=== PATIENT | female | born 1960 | race Caucasian/White ===

== ENCOUNTER 2019-05-03 05:07 | Emergency (ER) | payer OTHER ==
[2019-05-03] MEDS ORDERED: NORMAL SALINE 1000 ML 1,000 ML IV ONE (05:34)
[2019-05-03] MEDS ORDERED: ONDANSETRON HCL INJ/PF 4 MG/2 ML SDV IV ONE (06:06)
[2019-05-03 06:25] LABS: HEMATOCRIT 41.9 % (36.0-47.0); HEMOGLOBIN 14.6 g/dL (12.0-15.5); MEAN CORPUSCULAR HEMOGLOBIN 31.6 pg (27.0-33.4); MEAN CORPUSCULAR HGB CONC 34.9 g/dL (32.0-36.0); MEAN CORPUSCULAR VOLUME 91 fl (80-97); PLATELET COUNT 460 10^3/uL (150-450); RED BLOOD COUNT 4.62 10^6/uL (3.72-5.28); RED CELL DISTRIBUTION WIDTH 13.4 % (11.5-14.0); WHITE BLOOD COUNT 5.2 10^3/uL (4.0-10.5)
[2019-05-03 06:45] LABS: ALBUMIN 2.4 g/dL (3.5-5.0); ALKALINE PHOSPHATASE 92 U/L (38-126); ANION GAP 10 (5-19); ASPARTATE AMINO TRANSFERASE 21 U/L (14-36); BILIRUBIN,DIRECT 0.1 mg/dL (0.0-0.4); BILIRUBIN,TOTAL 1.3 mg/dL (0.2-1.3); BLOOD UREA NITROGEN 18 mg/dL (7-20); CALCIUM 7.9 mg/dL (8.4-10.2); CARBON DIOXIDE 24 mmol/L (22-30); CHLORIDE 90 mmol/L (98-107); GLUCOSE 95 mg/dL (75-110); TOTAL PROTEIN 5.1 g/dL (6.3-8.2)
--- NOTE | 2019-05-03 06:51 | ER Document Report ---
ED General - General Chief Complaint: Vomiting/Diarrhea Stated Complaint: ABDOMINAL PAIN,NAUSEA,VOMITING Time Seen by Provider: 05/03/19 06:05 Primary Care Provider: ELIZABETH JEFFERSON [NO LOCAL MD] - Follow up as needed DEVENDRA HEARN MD [ACTIVE STAFF] - Follow up as needed Mode of Arrival: Ambulatory Information source: Patient TRAVEL OUTSIDE OF THE [place] IN LAST 30 DAYS: No - HPI Onset: Other - over the last 7 weeks Onset/Duration: Gradual Quality of pain: Achy, Sharp Severity: Severe Pain Level: 5 Associated symptoms: Diarrhea, Nausea, Vomiting Exacerbated by: Coughing, Other - palpation of abdomen, laying flat Relieved by: Remaining still Similar symptoms previously: No Recently seen / treated by doctor: No Notes: 58 year old female with no known PMH here for 7 weeks of nausea, vomiting, and abdominal pains. The patient says she started off with diarrhea and chills but these symptoms past and then she felt bloated. The patient says she gave herself an enema over a week ago and since then she has noticed a painful lump in her left lower quadrant. The patient says she has not had a bowel movement in 2 days. Palpation of her stomach and laying flat make the pain the worst. The patient says also has noticed swelling in her feet and lower legs and significant GERD symptoms. - Related Data Allergies/Adverse Reactions: No Known Allergies Allergy (Verified 05/03/19 05:34) Past Medical History - General Information source: Patient - Social History Smoking Status: Never Smoker Frequency of alcohol use: None Drug Abuse: None Lives with: Spouse/Significant other Family History: Reviewed & Not Pertinent Patient has suicidal ideation: No Patient has homicidal ideation: No - Past Medical History Cardiac Medical History: Reports: None Pulmonary Medical History: Reports: None EENT Medical History: Reports: None Neurological Medical History: Reports: None Endocrine Medical History: Reports: None Renal/ Medical History: Reports: None Malignancy Medical History: Reports: None GI Medical History: Reports: None Musculoskeletal Medical History: Reports None Skin Medical History: Reports None Psychiatric Medical History: Reports: None Past Surgical History: Reports: Hx Tubal Ligation Review of Systems - Review of Systems Constitutional: Chills, Weakness EENT: No symptoms reported Cardiovascular: No symptoms reported Respiratory: No symptoms reported Gastrointestinal: Abdomen distended, Abdominal pain, Diarrhea, Nausea, Vomiting, Constipation Genitourinary: No symptoms reported Female Genitourinary: No symptoms reported Musculoskeletal: No symptoms reported Skin: No symptoms reported Hematologic/Lymphatic: No symptoms reported Neurological/Psychological: No symptoms reported -: Yes All other systems reviewed and negative Physical Exam - Vital signs Vitals: Temp Pulse Resp BP Pulse Ox 97.2 F 124 H 18 118/89 H 96 05/03/19 05:28 05/03/19 05:28 05/03/19 05:28 05/03/19 05:28 05/03/19 05:28 - Notes Notes: GENERAL: Uncomfortable in appearance, well-nourished HEAD: Atraumatic, normocephalic. EYES: Pupils equal round and reactive to light, extraocular movements intact, sclera anicteric, conjunctiva are normal. ENT: Nares patent, oropharynx clear without exudates. Moist mucous membranes. NECK: Normal range of motion, supple without lymphadenopathy or JVD. LUNGS: Breath sounds clear to auscultation bilaterally and equal. No wheezes rales or rhonchi. HEART: Regular rate and rhythm without murmurs, rubs or gallops. ABDOMEN: Soft, moderate tenderness throughout her abdomen, more severe tenderness in LLQ where a palpable mass is noted (about size of baseball), normoactive bowel sounds. Mild guarding. EXTREMITIES: Pitting edema of feet and ankle and lower legs to mid shins. Normal range of motion, no pitting or edema. No clubbing or cyanosis. NEUROLOGICAL: Cranial nerves II through XII grossly intact. Normal speech, normal gait. PSYCH: Normal mood, normal affect. SKIN: Warm, Dry, normal turgor, no rashes or lesions noted. Course - Re-evaluation Re-evalutation: 05/03/19 11:17 The patient is very constipated and the concern is there may be an underlying malignancy causing the constipation. Surgical Consult placed and plan is for patient to follow up as an outpatient for colonoscopy. Patient was given an Enema in the ER with mild relief. Patient was then given Zofran and Magnesium Citrate and then a repeat enema. Patient's electorlytes are slightly off likely due to her recent GI issues. Patient's Albumin is low which is concerning for malignancy. - Vital Signs Vital signs: Temp Pulse Resp BP Pulse Ox 97.2 F 124 H 22 H 112/90 H 99 02/17/20 05:28 05/03/19 05:28 05/03/19 11:00 05/03/19 10:34 05/03/19 11:00 - Laboratory Result Diagrams: 05/03/19 06:03 05/03/19 06:03 Laboratory results interpreted by me: 05/03/19 05/03/19 05/03/19 06:03 06:03 06:03 Plt Count 460 H Band Neutrophils % 2 L Monocytes % (Manual) 21 H Sodium 124.4 L Chloride 90 L Creatinine 0.44 L Calcium 7.9 L NT-Pro-B Natriuret Pep 129 H Total Protein 5.1 L Albumin 2.4 L - Diagnostic Test Radiology reviewed: Image reviewed, Reports reviewed Discharge - Discharge Clinical Impression: Screening for colon cancer Constipation Qualifiers: Constipation type: other constipation type Qualified Code(s): K59.09 - Other constipation Disposition: HOME, SELF-CARE Instructions: Constipation ([facility]), Hernia ([facility]) Additional Instructions: Use over the counter stool softeners such as Miralax, Senna, Colace, and Magnesium Citrate. Drink plenty of fluids in the days to come. Use the prescribed Zofran for nausea. Follow up in the [facility] with Dr. Jackie cee or one of his colleagues as you need to have a colonoscopy to look for a cause of your colonic obstruction. You have an abdominal wall hernia which you can speak with the Surgeon with as well. Prescriptions: Ondansetron [Zofran Odt 4 mg Tablet] 1 tab PO Q8H PRN #15 tab.rapdis PRN Reason: For Nausea/Vomiting Referrals: ELIZABETH JEFFERSON [NO LOCAL MD] - Follow up as needed DEVENDRA HEARN MD [ACTIVE STAFF] - Follow up as needed
[2019-05-03] MEDS ORDERED: MORPHINE SULFATE 10 MG/ML INJ IV ONE (06:55)
[2019-05-03 07:06] LABS: ABSOLUTE LYMPHOCYTES# (MANUAL) 0.7 10^3/uL (0.5-4.7); ABSOLUTE MONOCYTES # (MANUAL) 1.1 10^3/uL (0.1-1.4); BAND NEUTROPHILS % (MANUAL) 2 % (3-5); BASOPHILS % (MANUAL) 0 % (0-2); EOSINOPHILS % (MANUAL) 1 % (0-6); LYMPHOCYTES % (MANUAL) 13 % (13-45); MONOCYTES % (MANUAL) 21 % (3-13); SEGMENTED NEUTROPHILS % (MAN) 63 % (42-78); TOTAL CELLS COUNTED 100
[2019-05-03 07:08] LABS: TOXIC GRANULATION SLIGHT
[2019-05-03 07:09] LABS: PLATELET CLUMPS PRESENT; PLATELET COMMENT ADEQUATE; RBC MORPHOLOGY COMMENT NORMO-CYTIC/CHROMIC
--- NOTE | 2019-05-03 07:56 | RADIOLOGY REPORT (SQ) ---
CT abdomen and pelvis with contrast on 05/03/2019 at 7:10 AM CLINICAL INDICATION: Lower abdominal and periumbilical abdominal pain, mass TECHNIQUE: Multiple axial images are obtained throughout the abdomen and pelvis following the administration of IV contrast, 94 mL of Omnipaque 350 contrast was administered intravenously without complication. This exam was performed according to our departmental dose-optimization program, which includes automated exposure control, adjustment of the mA and/or kV according to patient size and/or use of iterative reconstruction technique. Total DLP is 1685.51 mGy*cm. COMPARISON: None FINDINGS: Abdomen: There is mild elevation of the right hemidiaphragm. There is minimal adjacent right basilar atelectasis and/or scarring. There is fatty infiltration of the liver. Multiple hepatic cysts are noted. Gallstone is noted within a distended gallbladder. There are multiple apparent duodenal diverticulum along the third portion of the duodenum. Solid abdominal organs are otherwise unremarkable. There is no abdominal adenopathy. Anasarca is noted in the subcutaneous tissues. There is no free fluid or free air within the abdomen. There is increased stool and gaseous distention of the entire colon down to the level of the sigmoid colon. There is narrowing of the sigmoid colon at the transition without definite mass. There is no twisting to suggest volvulus. This may be related to stricture or malignancy. Would recommend follow-up colonoscopy to better evaluate the sigmoid colon. The abdominal portion of the GI tract is otherwise unremarkable. Pelvis: There are couple of adjacent infraumbilical anterior abdominal wall hernias, the one to the right of the midline is smaller and contains some fat and small amount of fluid, the one to the left of the midline is more moderate in size and contains more fluid and fat. There is no bowel within either of these hernias. Small amount of free fluid is noted in the pelvis. Pelvic organs appear unremarkable by CT. There is no pelvic adenopathy. Pelvic portion of the GI tract including the appendix is otherwise unremarkable. Degenerative changes are noted in the spine. IMPRESSION: 1. Constipation with stool and gaseous distention of the entire colon down to the level of the sigmoid colon where there is narrowing of the sigmoid colon that may be related to stricture or malignancy. Recommend follow-up colonoscopy as this appears to be producing a partial colonic obstruction. 2. Cholelithiasis. 3. Infraumbilical anterior abdominal wall hernias containing fat and fluid. 4. Fatty infiltration of the liver.
[2019-05-03] MEDS ORDERED: MINERAL OIL 30 ML UDCUP PR ONE (08:06)
--- NOTE | 2019-05-03 09:14 | PDOC CONSULTATION ---
Consultation Consult Date: 05/03/19 Provider Consulted: DEVENDRA HEARN Consult reason:: Abdominal pain nausea vomiting constipation History of Present Illness History of Present Illness: JIM VICK is a 58 year old female Presents emergency department via ground rescue complaining of abdominal pain, nausea vomiting and constipation. According the patient she is never had a colonoscopy, denies history of abdominal trauma, or previous gastrointestinal problems. For several weeks she states she has been having constipation, unrelated to dietary change. She took enemas several days ago, with relief, but then the constipation, abdominal pain returned. He is seen in emergency department planing of persisting abdominal pain. CT scan of the abdomen and pelvis without oral contrast demonstrates again stool throughout the entire colon, a suggestion of a possible stricture of the rectosigmoid junction. Surgery was consulted. Patient had not undergone a rectal examination. No personal or family history of colorectal malignancy. Past Medical History Past Medical History: Obesity, constipation Cardiac Medical History: Reports: None Pulmonary Medical History: Reports: None EENT Medical History: Reports: None Neurological Medical History: Reports: None Endocrine Medical History: Reports: None Renal/ Medical History: Reports: None Malignancy Medical History: Reports: None GI Medical History: Reports: None Musculoskeltal Medical History: Reports: None Skin Medical History: Reports: None Psychiatric Medical History: Reports: None Past Surgical History Past Surgical History: Bilateral tubal ligation Past Surgical History: Reports: Tubal Ligation Social History Information Source: Patient Lives with: Spouse/Significant other Smoking Status: Never Smoker Electronic Cigarette use?: No Frequency of Alcohol Use: None Hx Recreational Drug Use: No Hx Prescription Drug Abuse: No Family History Family History: Reviewed & Not Pertinent, COPD Parental Family History Reviewed: Yes Children Family History Reviewed: Yes Sibling(s) Family History Reviewed.: Yes Medication/Allergy Allergies/Adverse Reactions: No Known Allergies Allergy (Verified 05/03/19 05:34) Review of Systems Constitutional: PRESENT: as per HPI Eyes: ABSENT: visual disturbances Ears: ABSENT: hearing changes Cardiovascular: ABSENT: chest pain, dyspnea on exertion, edema, orthropnea, palpitations Respiratory: ABSENT: cough, hemoptysis Gastrointestinal: PRESENT: other - She does have a abdominal wall hernia, reducible patient is never had a colonoscopy; she does not have a medical doctor. Denies any hematemesis or melena. Musculoskeletal: ABSENT: joint swelling Integumentary: ABSENT: rash, wounds Psychiatric: ABSENT: anxiety, depression, homidical ideation, suicidal ideation Endocrine: ABSENT: cold intolerance, heat intolerance, polydipsia, polyuria Physical Exam Vital Signs: Temp Pulse Resp BP Pulse Ox 97.2 F 124 H 16 121/93 H 100 05/03/19 05:28 05/03/19 05:28 05/03/19 07:01 05/03/19 07:01 05/03/19 07:01 Intake & Output 05/02/19 05/03/19 05/04/19 06:59 06:59 06:59 Intake Total 1000 Balance 1000 Weight 81.8 kg General appearance: PRESENT: mild distress Head exam: PRESENT: normocephalic Eye exam: PRESENT: EOMI Mouth exam: PRESENT: dry mucosa Neck exam: PRESENT: full ROM Respiratory exam: PRESENT: clear to auscultation young Cardiovascular exam: PRESENT: RRR Pulses: PRESENT: normal carotid pulses, normal radial pulses, normal femoral p ulses Breast: PRESENT: Other - Referred GI/Abdominal exam: PRESENT: other - Infraumbilical midline incision; reducible umbilical and infraumbilical hernia. The abdomen is diffusely tender but without rigidity. Mild guarding. No groin hernias. Rectal exam: PRESENT: other - Patient rolled in left lateral cubitus position. Perianal tissue remarkable for external hemorrhoid, collapsed. Sphincter tone is excellent. Gloved index finger reveals no immediately palpable masses other than multiple large stool balls Extremities exam: PRESENT: full ROM Musculoskeletal exam: PRESENT: full ROM Neurological exam: PRESENT: oriented to person, oriented to place, oriented to time, oriented to situation Psychiatric exam: PRESENT: appropriate affect Skin exam: PRESENT: intact Results Laboratory Results: 05/03/19 06:03 05/03/19 06:03 05/03/19 05/03/19 06:03 06:03 WBC 5.2 RBC 4.62 Hgb 14.6 Hct 41.9 MCV 91 MCH 31.6 MCHC 34.9 RDW 13.4 Plt Count 460 H Seg Neutrophils % Not Reportable Sodium 124.4 L Potassium 4.0 Chloride 90 L Carbon Dioxide 24 Anion Gap 10 BUN 18 Creatinine 0.44 L Est GFR ( Amer) > 60 Glucose 95 Calcium 7.9 L Magnesium 2.1 Total Bilirubin 1.3 AST 21 Alkaline Phosphatase 92 Total Protein 5.1 L Albumin 2.4 L Lipase 29.3 05/03/19 06:03 NT-Pro-B Natriuret Pep 129 H Impressions: Abdomen/Pelvis CT 05/03/19 06:34 IMPRESSION: 1. Constipation with stool and gaseous distention of the entire colon down to the level of the sigmoid colon where there is narrowing of the sigmoid colon that may be related to stricture or malignancy. Recommend follow-up colonoscopy as this appears to be producing a partial colonic obstruction. 2. Cholelithiasis. 3. Infraumbilical anterior abdominal wall hernias containing fat and fluid. 4. Fatty infiltration of the liver. Assessment & Plan - Diagnosis (1) Constipation Is this a current diagnosis for this admission?: Yes Plan: ImPression: Chronic, involving massive amount of stool throughout the entire colon; CT scan limited due to absence of oral contrast; cannot rule out recto sigmoid colon stricture, tumor. Patient has not had a colonoscopy. No evidence of acute abdomen. Recommendations: 1. Patient does not need emergent operation. 2. I suggested IV hydration, and enemas in the emergency department; I attempted to digitally disimpact patient but she did not tolerate this well at all. I do not believe she has a complete rectosigmoid colon obstruction however she does need a colonoscopy once she is cleared out and managed from a constipation standpoint. I have spoken with the emergency department physician, suggested she follow-up with [facility] to schedule colonoscopy. 3. Please reconsult surgery if clinically indicated. (2) Screening for colon cancer Is this a current diagnosis for this admission?: Yes (3) Abdominal wall hernia Is this a current diagnosis for this admission?: Yes Plan: Infraumbilical related to previous bilateral tubal ligation, reducible. Not source of obstruction, incarceration. (4) Hepatic cyst Is this a current diagnosis for this admission?: Yes - Time Time Spent: 30 to 50 Minutes Smoking Cessation Education: 3 to 10 minutes Medications reviewed and adjusted accordingly: Yes Anticipated discharge: Home
[2019-05-03] MEDS ORDERED: MAGNESIUM CITRATE 296 ML BOTTLE PO ONE (10:13)
[2019-05-03] MEDS ORDERED: NA PHOS,M-B/NA PHOS,DI-BA (ADULT) 133 ML ENEMA PR ONE (10:13)
[2019-05-03] MEDS ORDERED: METOCLOPRAMIDE HCL INJ/PF 10 MG/2 ML SDV IV ONE (12:35)
[2019-05-03 13:46] VITALS: BP 106/78
== END 2019-05-03 13:47 | disposition home or self-care (01) ==
LOC: ER 05:07
DX: K59.00 Constipation, unspecified (principal); R11.2 Nausea with vomiting, unspecified; R19.7 Diarrhea, unspecified; R19.04 Left lower quadrant abdominal swelling, mass and lump; R68.83 Chills (without fever); R53.1 Weakness
CPT/HCPCS: 99284; 96361; 96374; 96375; 36415; 83690; 83735; 85025; 80053; 83880; 74177; J3490 ×3; J2765; J2270; J2405; J7030

== ENCOUNTER 2019-05-05 12:56 | Inpatient (IN) | payer OTHER ==
[2019-05-05] MEDS ORDERED: PROMETHAZINE HCL INJ 25 MG/1 ML VIAL IM ONE (14:19)
[2019-05-05] MEDS ORDERED: DICYCLOMINE HCL INJ 20 MG/2 ML AMPULE IM ONE (14:19)
--- NOTE | 2019-05-05 14:20 | ER Document Report ---
ED Medical Screen (RME) - General Chief Complaint: Abdominal Pain Stated Complaint: STOMACH PAIN/VOMITING Time Seen by Provider: 05/05/19 14:09 Notes: 58-year-old female presents with continued abdominal pain with nausea/vomiting. Patient states she was seen on Friday and diagnosed with constipation however states that has gotten worse the last couple days. Patient states she is no longer passing flatus. Abdomen soft tenderness diffusely. Patient denies any abdominal surgeries except having her tubes tied. I have greeted and performed a rapid initial assessment of this patient. A comprehensive ED assessment and evaluation of the patient, analysis of test results and completion of the medical decision making process with be conducted by additional ED providers. TRAVEL OUTSIDE OF THE [place] IN LAST 30 DAYS: No - Related Data Allergies/Adverse Reactions: No Known Allergies Allergy (Verified 05/05/19 14:05) Past Medical History - Social History Frequency of alcohol use: None Drug Abuse: None Past Surgical History: Reports: Hx Tubal Ligation Physical Exam - Vital signs Vitals: Temp Pulse Resp BP Pulse Ox 97.4 F 121 H 20 113/89 H 94 05/05/19 13:34 05/05/19 13:34 05/05/19 13:34 05/05/19 13:34 05/05/19 13:34 Course - Vital Signs Vital signs: Temp Pulse Resp BP Pulse Ox 97.4 F 121 H 20 113/89 H 94 05/05/19 13:34 05/05/19 13:34 05/05/19 13:34 05/05/19 13:34 05/05/19 13:34
[2019-05-05 15:51] LABS: APPEARANCE,URINE SLIGHTLY-CLOUDY; BILIRUBIN,URINE MODERATE (NEGATIVE); COLOR,URINE AMBER; GLUCOSE, URINE NEGATIVE (NEGATIVE); KETONES,URINE 20 mg/dL (NEGATIVE); PROTEIN,URINE 30 mg/dL (NEGATIVE); URINE SPECIFIC GRAVITY 1.029
[2019-05-05 15:51] LABS: ABSOLUTE LYMPHOCYTES (AUTO) 1.3 10^3/uL (0.5-4.7); ABSOLUTE MONOCYTES (AUTO) 1.1 10^3/uL (0.1-1.4); BASOPHILS % (AUTO) 0.4 % (0-2); EOSINOPHILS % (AUTO) 0.1 % (0-6); HEMATOCRIT 43.2 % (36.0-47.0); HEMOGLOBIN 14.9 g/dL (12.0-15.5); LYMPHOCYTES % (AUTO) 24.3 % (13-45); MEAN CORPUSCULAR HEMOGLOBIN 31.5 pg (27.0-33.4); MEAN CORPUSCULAR HGB CONC 34.5 g/dL (32.0-36.0); MEAN CORPUSCULAR VOLUME 91 fl (80-97); MONOCYTES % (AUTO) 19.8 % (3-13); PLATELET COUNT 534 10^3/uL (150-450); RED BLOOD COUNT 4.73 10^6/uL (3.72-5.28); RED CELL DISTRIBUTION WIDTH 13.4 % (11.5-14.0); SEGMENTED NEUTROPHILS % (AUTO) 55.4 % (42-78); TOTAL CELLS COUNTED % (AUTO) 100 %; WHITE BLOOD COUNT 5.4 10^3/uL (4.0-10.5)
[2019-05-05 16:14] LABS: ALBUMIN 2.4 g/dL (3.5-5.0); ALKALINE PHOSPHATASE 93 U/L (38-126); ANION GAP 15 (5-19); ASPARTATE AMINO TRANSFERASE 21 U/L (14-36); BILIRUBIN,DIRECT 0.5 mg/dL (0.0-0.4); BILIRUBIN,TOTAL 1.3 mg/dL (0.2-1.3); BLOOD UREA NITROGEN 24 mg/dL (7-20); CALCIUM 7.8 mg/dL (8.4-10.2); CARBON DIOXIDE 23 mmol/L (22-30); CHLORIDE 86 mmol/L (98-107); GLUCOSE 105 mg/dL (75-110); POTASSIUM 4.8 mmol/L (3.6-5.0); TOTAL PROTEIN 5.1 g/dL (6.3-8.2)
[2019-05-05] MEDS ORDERED: NORMAL SALINE 1000 ML 1,000 ML IV ONE (17:06)
--- NOTE | 2019-05-05 17:06 | ER Document Report ---
ED GI/ - General Chief Complaint: Abdominal Pain Stated Complaint: STOMACH PAIN/VOMITING Time Seen by Provider: 05/05/19 16:45 Mode of Arrival: Ambulatory Information source: Patient Notes: Patient presents complaining of abdominal bloating pain nausea and vomiting for the past 2 weeks. Patient states she was seen here 2 days ago and was told she was constipated. Patient states she was given an enema and did have a small bowel movement while in the ER and was discharged home with MiraLAX and Zofran. Patient states she has not had any additional bowel movement despite taking MiraLAX as well as an [id number] fleets enema. Patient reports persistent vomiting despite use of Zofran. Patient denies any fever. Patient does report decrease in appetite over the past several weeks. Patient also complains of lower extremity swelling for the past week. Patient states she has had some exertional shortness of breath as well. Patient states she has not been passing any gas although she states that her stomach will frequently make loud noises. TRAVEL OUTSIDE OF THE [place] IN LAST 30 DAYS: No - HPI Patient complains to provider of: Abdominal pain, Vomiting Onset: Other - 2 weeks Timing/Duration: Worse Quality of pain: Cramping Pain Level: 4 Location: Other - Generalized abdomen Associated symptoms: Constipation, Loss of appetite, Nausea, Vomiting. denies: Chest pain, Diarrhea, Dysuria, Fever, Urinary hesitancy, Urinary frequency Exacerbated by: Denies, Supine, Movement Relieved by: Denies Similar symptoms previously: No Recently seen / treated by doctor: Yes - Related Data Allergies/Adverse Reactions: No Known Allergies Allergy (Verified 05/05/19 14:05) Past Medical History - General Information source: Patient - Social History Smoking Status: Never Smoker Frequency of alcohol use: None Drug Abuse: None Family History: Reviewed & Not Pertinent Patient has suicidal ideation: No Patient has homicidal ideation: No - Medical History Medical History: Negative Past Surgical History: Reports: Hx Tubal Ligation Review of Systems - Review of Systems Constitutional: No symptoms reported. denies: Fever, Recent illness EENT: No symptoms reported Cardiovascular: Dyspnea. denies: Chest pain Respiratory: Short of breath - Exertion. denies: Cough Gastrointestinal: Abdominal pain, Nausea, Vomiting, Constipation. denies: Diarrhea Genitourinary: No symptoms reported. denies: Dysuria Female Genitourinary: No symptoms reported Musculoskeletal: Leg swelling. denies: Back pain Skin: No symptoms reported Hematologic/Lymphatic: No symptoms reported Neurological/Psychological: No symptoms reported Physical Exam - Vital signs Vitals: Temp Pulse Resp BP Pulse Ox 97.4 F 121 H 20 113/89 H 94 05/05/19 13:34 05/05/19 13:34 05/05/19 13:34 05/05/19 13:34 05/05/19 13:34 - General General appearance: Alert In distress: Mild - HEENT Head: Normocephalic, Atraumatic Eyes: Normal Conjunctiva: Normal Nasal: Normal Mouth/Lips: Normal Mucous membranes: Normal Neck: Normal, Supple - Respiratory Respiratory status: No respiratory distress Chest status: Nontender Breath sounds: Normal Chest palpation: Normal - Cardiovascular Rhythm: Tachycardia Heart sounds: S1 appreciated, S2 appreciated - Abdominal Inspection: Obese Distension: Distended, Tympanitic - upper abd Bowel sounds: Hypoactive - lower abd Tenderness: Tender - generalized, Guarding - Back Back: Normal, Nontender. No: CVA tenderness - Extremities General upper extremity: Normal inspection, Normal strength General lower extremity: Edema - bilat 3+ - Neurological Neuro grossly intact: Yes Cognition: Normal [place] Coma Scale Eye Opening: Spontaneous [place] Coma Scale Verbal: Oriented [place] Coma Scale Motor: Obeys Commands [place] Coma Scale Total: 15 - Psychological Associated symptoms: Normal affect, Normal mood - Skin Skin Temperature: Warm Skin Moisture: Dry Skin Color: Normal Course - Re-evaluation Re-evalutation: 05/05/19 18:[address] Richardson about concerns about possible stricture and bowel obstruction given patient's persistent nominal distention symptoms with emesis and no BM despite use of fwqd-[id number]-zghgqce MiraLAX and fleets enemas. Dr. Richardson does recommend bringing patient into the hospital under medicine services given patient's hyponatremia. He will be happy to consult on patient and see her shortly. 05/05/19 18:13 Dr Washington consulted and states that Dr Valladares will evaluate pt - Vital Signs Vital signs: Temp Pulse Resp BP Pulse Ox 97.0 F 109 H 20 114/86 H 100 05/05/19 17:52 05/05/19 18:13 05/05/19 19:01 05/05/19 19:01 05/05/19 19:01 - Laboratory Result Diagrams: 05/05/19 14:40 05/05/19 14:40 Laboratory results interpreted by me: 05/05/19 05/05/19 05/05/19 14:40 14:40 14:40 Plt Count 534 H Routt % (Auto) 19.8 H Sodium 123.7 L Chloride 86 L BUN 24 H Calcium 7.8 L Direct Bilirubin 0.5 H NT-Pro-B Natriuret Pep 183 H Total Protein 5.1 L Albumin 2.4 L Lipase < 10.0 L Urine Protein Urine Ketones Urine Bilirubin Urine Urobilinogen Leukocyte Esterase Rfl 05/05/19 15:25 Plt Count [place] % (Auto) Sodium Chloride BUN Calcium Direct Bilirubin NT-Pro-B Natriuret Pep Total Protein Albumin Lipase Urine Protein 30 H Urine Ketones 20 H Urine Bilirubin MODERATE H Urine Urobilinogen 4.0 H Leukocyte Esterase Rfl SMALL H 05/05/19 20:37 Labs- Entire Visit 05/05/19 05/05/19 05/05/19 14:40 14:40 14:40 WBC 5.4 RBC 4.73 Hgb 14.9 Hct 43.2 MCV 91 MCH 31.5 MCHC 34.5 RDW 13.4 Plt Count 534 H Lymph % (Auto) 24.3 [place] % (Auto) 19.8 H Eos % (Auto) 0.1 Baso % (Auto) 0.4 Absolute Neuts (auto) 3.0 Absolute Lymphs (auto) 1.3 Absolute Monos (auto) 1.1 Absolute Eos (auto) 0.0 Absolute Basos (auto) 0.0 Seg Neutrophils % 55.4 Sodium 123.7 L Potassium 4.8 Chloride 86 L Carbon Dioxide 23 Anion Gap 15 BUN 24 H Creatinine 0.63 Est GFR ( Amer) > 60 Est GFR (MDRD) Non-Af > 60 Glucose 105 Calcium 7.8 L Total Bilirubin 1.3 Direct Bilirubin 0.5 H Neonat Total Bilirubin Not Reportable Neonat Direct Bilirubin Not Reportable Neonat Indirect Bili Not Reportable AST 21 ALT 14 Alkaline Phosphatase 93 NT-Pro-B Natriuret Pep 183 H Total Protein 5.1 L Albumin 2.4 L Lipase < 10.0 L Urine Color Urine Appearance Urine pH Ur Specific [place] Urine Protein Urine Glucose (UA) Urine Ketones Urine Blood Urine Nitrite (Reflex) Urine Bilirubin Urine Urobilinogen Leukocyte Esterase Rfl Urine RBC (Auto) U Hyaline Cast (Auto) Urine Bacteria (Auto) Urine WBC (Reflex) Squamous Epi Cells Auto Urine Mucus (Auto) Urine Ascorbic Acid 05/05/19 15:25 WBC RBC Hgb Hct MCV MCH MCHC RDW Plt Count Lymph % (Auto) [place] % (Auto) Eos % (Auto) Baso % (Auto) Absolute Neuts (auto) Absolute Lymphs (auto) Absolute Monos (auto) Absolute Eos (auto) Absolute Basos (auto) Seg Neutrophils % Sodium Potassium Chloride Carbon Dioxide Anion Gap BUN Creatinine Est GFR ( Amer) Est GFR (MDRD) Non-Af Glucose Calcium Total Bilirubin Direct Bilirubin Neonat Total Bilirubin Neonat Direct Bilirubin Neonat Indirect Bili AST ALT Alkaline Phosphatase NT-Pro-B Natriuret Pep Total Protein Albumin Lipase Urine Color MARIA LUZ Urine Appearance SLIGHTLY-CLOUDY Urine pH 5.0 Ur Specific [place] 1.029 Urine Protein 30 H Urine Glucose (UA) NEGATIVE Urine Ketones 20 H Urine Blood NEGATIVE Urine Nitrite (Reflex) NEGATIVE Urine Bilirubin MODERATE H Urine Urobilinogen 4.0 H Leukocyte Esterase Rfl SMALL H Urine RBC (Auto) 3 U Hyaline Cast (Auto) 24 Urine Bacteria (Auto) TRACE Urine WBC (Reflex) 15 Squamous Epi Cells Auto 3 Urine Mucus (Auto) MANY Urine Ascorbic Acid NEGATIVE - Diagnostic Test Radiology reviewed: Reports reviewed - reviewed report from patient's CT scan performed 2 days ago Discharge - Discharge Clinical Impression: Anasarca, Hyponatremia Abdominal pain Qualifiers: Abdominal location: generalized Qualified Code(s): R10.84 - Generalized abdominal pain Vomiting Qualifiers: Vomiting type: unspecified Vomiting Intractability: unspecified Nausea presence: with nausea Qualified Code(s): R11.2 - Nausea with vomiting, unspecified Condition: Fair Disposition: ADMITTED INPATIENT Admitting Provider: Jacquelyn (Hospitalist) Unit Admitted: Telemetry
--- NOTE | 2019-05-05 17:36 | RADIOLOGY REPORT (SQ) ---
EXAM DESCRIPTION: ACUTE ABDOMEN SERIES COMPLETED DATE/TIME: 05/05/2019 5:26 pm REASON FOR STUDY: abd pain/distention, constipation, SOB COMPARISON: None. NUMBER OF VIEWS: Three views. TECHNIQUE: Frontal chest, supine abdomen and upright/decubitus abdomen radiographic images acquired. LIMITATIONS: None. FINDINGS: CHEST: Lungs clear of infiltrates. FREE AIR: None. No abnormal gas collections. BOWEL GAS PATTERN: There is dilated colon with scattered air-fluid levels on the upright view. Mild small-bowel distention. This could represent redundant sigmoid colon. Review of the prior CT demons trates dilated colon secondary to narrowing in the distal sigmoid. No free air. CALCIFICATIONS: No suspicious calcifications. HARDWARE: None in the abdomen. SOFT TISSUES: No gross mass or suggestion of organomegaly. BONES: No acute fracture. No worrisome bone lesions. OTHER: No other significant finding. IMPRESSION: Persistent dilated colon with mild small-bowel distention. TECHNICAL DOCUMENTATION: JOB ID: [id number] 2010 [employer] [employer]- All Rights Reserved Reading location - IP/workstation name: [email or web address]
[2019-05-05] MEDS ORDERED: LIDOCAINE 2% URO-JET 5 ML KIT MM ONE (19:00)
[2019-05-05] MEDS ORDERED: ACETAMINOPHEN 650 MG SUPP.RECT PR PRN (19:03)
[2019-05-05] MEDS ORDERED: PHARMACY COMMUNICATION ORDER MC NR (19:15)
[2019-05-05] MEDS ORDERED: BISACODYL 10 MG SUPP.RECT PR PRN (19:25)
[2019-05-05] MEDS ORDERED: ALBUMIN HUMAN 12.5 GM/50 ML RTUINJ IV SCH (19:30)
--- NOTE | 2019-05-05 19:44 | RADIOLOGY REPORT (SQ) ---
EXAM DESCRIPTION: KUB/ABDOMEN (SINGLE VIEW) COMPLETED DATE/TIME: 05/05/2019 7:29 pm REASON FOR STUDY: Check Placement of NG Tube COMPARISON: None. NUMBER OF VIEWS: One view. TECHNIQUE: Supine radiographic image of the abdomen acquired. LIMITATIONS: None. FINDINGS: BOWEL GAS PATTERN: Distended loops of bowel. CALCIFICATIONS: No suspicious calcifications. SOFT TISSUES: No gross mass or suggestion of organomegaly. HARDWARE: NG tube is about 5 cm inside the stomach. BONES: No acute fracture. No worrisome bone lesions. OTHER: No other significant finding. IMPRESSION: The NG tube is about 5 cm inside the stomach. TECHNICAL DOCUMENTATION: JOB ID: [id number] 2010 [employer]- All Rights Reserved Reading location - IP/workstation name: [email or web address]
[2019-05-05] MEDS ORDERED: ALBUMIN HUMAN 25 GM/100 ML RTUINJ IV SCH (20:00)
[2019-05-05] MEDS ORDERED: MINERAL OIL ENEMA 133 ML PR ONE ×2 (20:00→22:00)
--- NOTE | 2019-05-05 20:08 | PDOC H&P ---
History of Present Illness Admission Date/PCP: May 05, 2019 No PCP Patient complains of: Abdominal pain and distention History of Present Illness: JIM VICK is a 58 year old female with no significant past medical history. She states that approximately 7 weeks ago she became very sick with nausea, vomiting and diarrhea. At that time she experienced abdominal bloating. Since that time, she reports that her bowels have not been the same. She has difficulty with oral intake. She has experienced vomiting typically after no bowel movement for several days. She states that fleets enema provided little relief. Approximately 1 week ago she began to notice increased fluid retention in her legs. She states that she has not seen this much swelling since her 30 years ago. She states that she was given an enema on Friday in the emergency department and had a small bowel movement but nothing since. She has noted increased abdominal distention with bloating and crampy abdominal pain. She reports feeling lightheaded when she stands up. She has tried multiple pre parations but most [id number] treatments only cause increased crampy pain, increased abdominal distention and increased acid reflux. She reports not having had any significant food intake for several weeks. She tries to drink lots of fluids but ends up vomiting them back up. She has noticed that over the past 2 weeks her urine output slowly decreased and over the last week the urine has been very dark and appears to be thick. She reports some difficulty initiating urination and sometimes has to run the water in the sink to try and get her to urinate. She denies any significant past medical history. A CT scan obtained on the ER visit Friday showed distended colon with possible narrowing in the sigmoid colon. There were unable to provide any further detail but stricture versus malignancy are possibilities. She was noted to have diverticula in the duodenum. Fatty infiltration of the liver was noted as well as multiple hepatic cysts. A gallstone was identified in the gallbladder and the gallbladder was distended. Anasarca was noted in the subcutaneous abdominal tissue there are 2 adjacent infraumbilical anterior abdominal wall hernias. The contents are mostly fluid and adipose tissue. There is no bowel within either of them. Small amount of free fluid is noted in the pelvis. An acute abdominal series obtained today shows clear lungs with no evidence of infiltrate. No free air in the abdomen. Still with dilated colon and scattered air-fluid levels on the upright view. Now there is mild small bowel distention. Laboratory studies reveal a serum sodium of 123.7 with a chloride of 86. Serum potassium was normal as was the serum creatinine. BUN was minimally elevated at 24. The total bilirubin was 1.3 and her albumin was only 2.4. Transaminases were u nremarkable. Brain natruretic peptide was only 183. The patient was assessed by Dr. Richardson. I have ordered a consult. The patient will be admitted to the hospitalist service. Past Medical History Medical History: None Past Surgical History Past Surgical History: Reports: Tubal Ligation Social History Information Source: Patient Lives with: Spouse/Significant other - Patient is and has 3 children Smoking Status: Never Smoker Electronic Cigarette use?: No Frequency of Alcohol Use: None Hx Recreational Drug Use: No Hx Prescription Drug Abuse: No - Advance Directive Resuscitation Status: Full Code Family History Family History: COPD, Malignancy Parental Family History Reviewed: Yes - Mother from leukemia, father COPD/emphysema Children Family History Reviewed: Yes Sibling(s) Family History Reviewed.: Yes Medication/Allergy Home Medications: No Home Medications 05/05/19 Allergies/Adverse Reactions: No Known Allergies Allergy (Verified 05/05/19 14:05) Review of Systems All systems: reviewed and no additional remarkable complaints except as stated Constitutional: PRESENT: as per HPI, anorexia, fatigue, weakness Cardiovascular: PRESENT: dyspnea on exertion, edema Gastrointestinal: PRESENT: abdominal pain, bloating, constipation, heartburn, nausea, vomiting, other - Abdominal distention Genitourinary: PRESENT: difficulty urinating, other - Oliguria with very dark urine Physical Exam Vital Signs: Temp Pulse Resp BP Pulse Ox 97.0 F 109 H 20 114/86 H 100 05/05/19 17:52 05/05/19 18:13 05/05/19 19:01 05/05/19 19:01 05/05/19 19:01 Intake & Output 05/04/19 05/05/19 05/06/19 06:59 06:59 06:59 Weight 83.1 kg General appearance: PRESENT: cooperative, well-developed, other - Well-developed 58-year-old female resting in the bed clearly in moderate distress. Head exam: PRESENT: atraumatic, normocephalic Eye exam: PRESENT: conjunctiva pink, EOMI. ABSENT: periorbital swelling, scleral icterus Ear exam: PRESENT: normal external ear exam. ABSENT: bleeding, drainage Mouth exam: PRESENT: dry mucosa, tongue midline Neck exam: PRESENT: full ROM. ABSENT: lymphadenopathy, thyromegaly Respiratory exam: PRESENT: clear to auscultation young, symmetrical, unlabored. ABSENT: accessory muscle use, prolonged expiratory phas, rales, rhonchi, tachypnea, wheezes Cardiovascular exam: PRESENT: RRR, +S1, +S2. ABSENT: diastolic murmur, systolic murmur Pulses: PRESENT: other - Unable to palpate dorsalis pedis pulses due to edema GI/Abdominal exam: PRESENT: distended, hyperactive bowel sounds, soft, tenderness - Diffuse tenderness. ABSENT: guarding Rectal exam: PRESENT: deferred Extremities exam: PRESENT: +2 edema - 2-3+ edema bilaterally Musculoskeletal exam: PRESENT: ambulatory. ABSENT: deformity Neurological exam: PRESENT: alert, awake, oriented to person, oriented to place, oriented to time, oriented to situation, CN II-XII grossly intact. ABSENT: altered, motor sensory deficit Psychiatric exam: PRESENT: appropriate affect. ABSENT: agitated, anxious Focused psych exam: ABSENT: delusional, restlessness Skin exam: PRESENT: dry, normal color, warm. ABSENT: rash Results Laboratory Results: 05/05/19 14:40 05/05/19 14:40 05/05/19 05/05/19 05/05/19 14:40 14:40 15:25 WBC 5.4 RBC 4.73 Hgb 14.9 Hct 43.2 MCV 91 MCH 31.5 MCHC 34.5 RDW 13.4 Plt Count 534 H Seg Neutrophils % 55.4 Sodium 123.7 L Potassium 4.8 Chloride 86 L Carbon Dioxide 23 Anion Gap 15 BUN 24 H Creatinine 0.63 Est GFR ( Amer) > 60 Glucose 105 Calcium 7.8 L Total Bilirubin 1.3 AST 21 Alkaline Phosphatase 93 Total Protein 5.1 L Albumin 2.4 L Lipase < 10.0 L Urine Color MARIA LUZ Urine Appearance SLIGHTLY-CLOUDY Urine pH 5.0 Ur Specific [place] 1.029 Urine Protein 30 H Urine Glucose (UA) NEGATIVE Urine Ketones 20 H Urine Blood NEGATIVE Urine RBC (Auto) 3 05/05/19 14:40 NT-Pro-B Natriuret Pep 183 H Impressions: Acute Abdomen Series 05/05/19 17:05 IMPRESSION: Persistent dilated colon with mild small-bowel distention. Assessment and Plan - Diagnosis (1) Anasarca Is this a current diagnosis for this admission?: Yes (2) Hyponatremia Is this a current diagnosis for this admission?: Yes (3) Colon obstruction Is this a current diagnosis for this admission?: Yes (4) Abdominal pain Qualifiers: Abdominal location: generalized Qualified Code(s): R10.84 - Generalized abdominal pain Is this a current diagnosis for this admission?: Yes (5) Nausea and vomiting Qualifiers: Vomiting type: unspecified Vomiting Intractability: non-intractable Qualified Code(s): R11.2 - Nausea with vomiting, unspecified Is this a current diagnosis for this admission?: Yes (6) Gastroesophageal reflux disease Qualifiers: Esophagitis presence: esophagitis presence not specified Qualified Code(s): K21.9 - Gastro-esophageal reflux disease without esophagitis Is this a current diagnosis for this admission?: Yes (7) Steatohepatitis Is this a current diagnosis for this admission?: Yes (8) Diverticulum of duodenum Is this a current diagnosis for this admission?: Yes (9) Abdominal wall hernia Is this a current diagnosis for this admission?: Yes (10) Hepatic cyst Is this a current diagnosis for this admission?: Yes (11) Cholelithiasis Qualifiers: Cholelithiasis location: gallbladder Cholecystitis presence: without cholecystitis Biliary obstruction: without biliary obstruction Qualified Code(s): K80.20 - Calculus of gallbladder without cholecystitis without o bstruction Is this a current diagnosis for this admission?: Yes - Plan Summary Summary: 10/03/2019 Anasarca-unclear etiology. The patient's albumin is only 2.4 which is quite surprising for a 58-year-old female with no significant medical history. This is certainly contributing to the anasarca. I am going to give her albumin tonight and then albumin with furosemide in the morning to see if we can diurese some of the fluid off and this may help with her hyponatremia. Hyponatremia-possibly SIADH. There seems to be a colon stricture. If this is a malignancy it certainly could affect serum sodium levels. The patient will be n.p.o. because of the colon obstruction. She will be getting IV fluids as her pressure was marginal. If there is no noticeable improvement I will likely obtain a nephrology consult. Urine sodium, urine osmolality and serum osmolality studies have been ordered. Colon Obstruction-the patient has been having trouble with her bowels for at least 7 weeks. There is a stricture in the sigmoid colon. Considering the timeframe malignancy is certainly a consideration. Dr. Richardson is consulting. After discussing the case with him he is going to order a Gastrografin enema. Based on these results it will likely determine the next clinical intervention. I have ordered some enema therapy as well but if this is a significant stricture enemas are not likely to make a difference. Abdominal distention, nausea and vomiting are secondary to the obstruction. Because of this she has been suffering with significant acid reflux as well. She will have an NG tube placed. I have ordered proton pump inhibitor therapy. The patient was also noted to have steatohepatitis with hepatic cysts. I have o rdered a lipid profile to assess. A gallstone was noted by CT scan with a slightly distended gallbladder but there is no evidence of cholecystitis. 2 abdominal wall hernias were incidentally noted on CT scan with adipose tissue and fluid but no bowel present. Duodenal diverticuli were also noted. Although present it is unlikely that the gallstone, steatohepatitis, hepatic cysts, duodenal diverticuli and abdominal wall herniae are contributing to the 2 primary problems of hyponatremia with anasarca and colon obstruction. - Time Time Spent with patient: 35 or more minutes Medications reviewed and adjusted accordingly: Yes - Inpatient Certification Based on my medical assessment, after consideration of the patient's comorbidities, presenting symptoms, or acuity I expect that the services needed warrant INPATIENT care.: Yes I certify that my determination is in accordance with my understanding of Medicare's requirements for reasonable and necessary INPATIENT services [42 CFR 412.3e].: Yes Medical Necessity: Failure to Improve With Outpatient Therapy, Need For IV Fluids, Need For Continuous Telemetry Monitoring, Need for Pain Control 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
--- NOTE | 2019-05-05 20:15 | ADVANCED CARE ---
- Diagnosis (1) Anasarca Diagnosis Current: Yes (2) Hyponatremia Diagnosis Current: Yes (3) Colon obstruction Diagnosis Current: Yes (4) Abdominal pain Diagnosis Current: Yes (5) Nausea and vomiting Diagnosis Current: Yes (6) Gastroesophageal reflux disease Diagnosis Current: Yes (7) Steatohepatitis Diagnosis Current: Yes (8) Diverticulum of duodenum Diagnosis Current: Yes (9) Abdominal wall hernia Diagnosis Current: Yes (10) Hepatic cyst Diagnosis Current: Yes (11) Cholelithiasis Diagnosis Current: Yes Attendance: Discussion was held at the bedside with the patient. Resuscitation Status: Full Code Discussion: When it came time to discuss CODE STATUS the patient stated that she does not want to be kept alive in a vegetative state. She would not want to be resuscitated if she is not going to have a meaningful recovery. I explained that this is impossible to know at the time of resuscitation. Decisions would have to be made after the resuscitation if there was not a good outcome. She states that she has discussed this with her but they have never finalized the decision. This is where a healthcare proxy/living well would be very helpful. I explained that there is one in the admission packet. I told the patient that we will make her a full code for now as she does not have any significant past medical history but she should take the opportunity to have this discussion and make decisions with her . She agrees. Care Planning Goals: For the patient have further discussion with her and complete a living well with her medical choices known as this will help take pressure off of the family in the event of a catastrophic illness. Document(s) Completed: None Time Spent: 18 minutes
[2019-05-06] MEDS: KETOROLAC TROMETHAMINE INJ/PF 30 MG/1 ML SDV IV PRN (00:01)
[2019-05-06] MEDS: ALBUMIN HUMAN 25 GM/100 ML RTUINJ IV SCH ×3 (00:07→11:15)
[2019-05-06] MEDS: NORMAL SALINE 1000 ML 1,000 ML IV PRN ×2 (00:12→09:29)
[2019-05-06] MEDS: HEPARIN SOD (PORCINE) 5,000 UNIT/ML 1 ML VIAL SUBCUT SCH ×3 (00:13→13:04)
[2019-05-06 06:18] LABS: FREE T3 1.44 pg/mL (2.77-5.27); FREE T4 (FREE THYROXINE) 1.18 ng/dL (0.78-2.19); THYROID STIMULATING HORMONE 3.26 uIU/mL (0.47-4.68)
[2019-05-06 06:34] LABS: ANION GAP 11 (5-19); BLOOD UREA NITROGEN 29 mg/dL (7-20); CALCIUM 7.2 mg/dL (8.4-10.2); CARBON DIOXIDE 23 mmol/L (22-30); CHLORIDE 91 mmol/L (98-107); CHOLESTEROL 72.97 mg/dL (0-200); GLUCOSE 103 mg/dL (75-110); POTASSIUM 3.9 mmol/L (3.6-5.0); TRIGLYCERIDES 85 mg/dL (<150)
[2019-05-06 06:35] LABS: DIRECT LDL 42 mg/dL (<100)
--- NOTE | 2019-05-06 06:50 | PDOC CONSULTATION ---
Consultation Consult Date: 05/06/19 Provider Consulted: SURGICAL SURGICALIST Consult reason:: Distal colonic obstruction History of Present Illness Admission Date/PCP: 05/05/19 19:22 Patient complains of: Abdominal distention, abdominal pain, nausea, vomiting History of Present Illness: JIM VICK is a 58 year old female seen in consultation at the request of the emergency department. This patient has a several week history of increasing abdominal distention, abdominal pain, nausea, and vomiting. She presented the hospital several days ago, was given laxatives and enemas, and discharged home. The patient has never had a colonoscopy. She represents today with similar findings and complaints. She also reports severe lower extremity edema, which has never occurred before. The patient denies any chronic medical problems. Her pain is crampy in nature, and has become constant. She reports the last time that she passed flatus was 3 days ago. She has not had a significant bowel movement in many days. She denies melena, hematochezia, hematemesis, headache, blurry vision, seizures, dizziness, confusion. She also denies chest pain or shortness of breath. She does report nausea, vomiting, abdominal distention, crampy abdominal pain, fatigue, malaise, and obstipation. Past Surgical History Past Surgical History: Reports: Tubal Ligation Social History Lives with: Spouse/Significant other - Patient is and has 3 children Smoking Status: Never Smoker Electronic Cigarette use?: No Frequency of Alcohol Use: None Hx Recreational Drug Use: No Hx Prescription Drug Abuse: No - Advance Directive Resuscitation Status: Full Code Family History Family History: Reviewed & Not Pertinent Parental Family History Reviewed: Yes Children Family History Reviewed: Yes Sibling(s) Family History Reviewed.: Yes Medication/Allergy Home Medications: No Home Medications 05/05/19 Allergies/Adverse Reactions: No Known Allergies Allergy (Verified 05/05/19 14:05) Review of Systems Constitutional: PRESENT: anorexia, fatigue, weakness. ABSENT: chills, fever(s), headache(s) Eyes: ABSENT: visual disturbances Ears: ABSENT: hearing changes Nose, Mouth, and Throat: ABSENT: mouth pain, sore throat Cardiovascular: PRESENT: edema - Severe bilateral lower extremity edema Respiratory: ABSENT: cough Gastrointestinal: PRESENT: abdominal pain, bloating, constipation, nausea, vomiting. ABSENT: hematemesis, hematochezia, melena Genitourinary: ABSENT: dysuria Musculoskeletal: ABSENT: back pain Integumentary: ABSENT: pruritus, rash Neurological: PRESENT: weakness. ABSENT: confusion, convulsions, dizziness Psychiatric: ABSENT: anxiety, depression Endocrine: ABSENT: cold intolerance, heat intolerance Hematologic/Lymphatic: ABSENT: easy bleeding, easy bruising Physical Exam Vital Signs: Temp Pulse Resp BP Pulse Ox 98.7 F 120 H 18 102/78 97 05/05/19 21:17 05/05/19 21:17 05/05/19 21:17 05/05/19 21:17 05/05/19 21:17 Intake & Output 05/04/19 05/05/19 05/06/19 06:59 06:59 06:59 Intake Total 1100 Output Total 0 Balance 1100 Weight 83.1 kg General appearance: PRESENT: cooperative Head exam: PRESENT: atraumatic, normocephalic Eye exam: PRESENT: EOMI, PERRLA. ABSENT: scleral icterus Neck exam: ABSENT: meningismus, tenderness, thyromegaly, tracheal deviation Respiratory exam: PRESENT: clear to auscultation young. ABSENT: chest wall tenderness Cardiovascular exam: ABSENT: tachycardia Vascular exam: PRESENT: normal capillary refill GI/Abdominal exam: PRESENT: distended, firm, soft. ABSENT: guarding, rigid, tenderness Rectal exam: PRESENT: normal inspection, normal rectal tone. ABSENT: fecal impaction Extremities exam: PRESENT: +2 edema - Bilateral lower extremities, extending from the hips to the toes. Musculoskeletal exam: ABSENT: deformity Neurological exam: PRESENT: alert, awake, oriented to person, oriented to place, oriented to time, oriented to situation, CN II-XII grossly intact Psychiatric exam: ABSENT: agitated, anxious, depressed Focused psych exam: ABSENT: delusional Skin exam: ABSENT: cyanosis, erythema, jaundice Results Laboratory Results: 05/05/19 14:40 05/06/19 04:18 05/05/19 05/05/19 05/05/19 14:40 14:40 14:40 WBC 5.4 RBC 4.73 Hgb 14.9 Hct 43.2 MCV 91 MCH 31.5 MCHC 34.5 RDW 13.4 Plt Count 534 H Seg Neutrophils % 55.4 Sodium 123.7 L Potassium 4.8 Chloride 86 L Carbon Dioxide 23 Anion Gap 15 BUN 24 H Creatinine 0.63 Est GFR ( Amer) > 60 Glucose 105 Serum Osmolality 265 L Calcium 7.8 L Magnesium Total Bilirubin 1.3 AST 21 Alkaline Phosphatase 93 Total Protein 5.1 L Albumin 2.4 L Triglycerides Cholesterol LDL Cholesterol Direct VLDL Cholesterol HDL Cholesterol Lipase < 10.0 L TSH Free T4 Free T3 pg/mL Urine Color Urine Appearance Urine pH Ur Specific [place] Urine Protein Urine Glucose (UA) Urine Ketones Urine Blood Urine RBC (Auto) 05/05/19 05/06/19 05/06/19 15:25 04:18 04:18 WBC RBC Hgb Hct MCV MCH MCHC RDW Plt Count Seg Neutrophils % Sodium 125.3 L Potassium 3.9 Chloride 91 L Carbon Dioxide 23 Anion Gap 11 BUN 29 H Creatinine 0.64 Est GFR ( Amer) > 60 Glucose 103 Serum Osmolality Calcium 7.2 L Magnesium 2.2 Total Bilirubin AST Alkaline Phosphatase Total Protein Albumin Triglycerides 85 Cholesterol 72.97 LDL Cholesterol Direct 42 VLDL Cholesterol 17.0 HDL Cholesterol 26 L Lipase TSH 3.26 Free T4 1.18 Free T3 pg/mL 1.44 L Urine Color MARIA LUZ Urine Appearance SLIGHTLY-CLOUDY Urine pH 5.0 Ur Specific [place] 1.029 Urine Protein 30 H Urine Glucose (UA) NEGATIVE Urine Ketones 20 H Urine Blood NEGATIVE Urine RBC (Auto) 3 05/05/19 14:40 NT-Pro-B Natriuret Pep 183 H Impressions: Acute Abdomen Series 05/05/19 17:05 IMPRESSION: Persistent dilated colon with mild small-bowel distention. KUB X-Ray 05/05/19 19:06 IMPRESSION: The NG tube is about 5 cm inside the stomach. Assessment & Plan - Diagnosis (1) Colon obstruction Is this a current diagnosis for this admission?: Yes (2) Hyponatremia Is this a current diagnosis for this admission?: Yes - Plan Summary Plan Summary: This is a 58-year-old female with a presentation consistent with distal colonic obstruction. She has a large amount of stool in the colon and small bowel. She has persistent nausea and vomiting. She is a narrowing at the rectosigmoid junction. The patient has never had a colonoscopy. She has obviously failed outpatient management. Her sodium is 123 today. She has severe edema of her bilateral lower extremities. I have recommended admission to the hospital. I have discussed the case personally with our hospitalist, Dr. Valladares. He has agreed to accept the patient and sort out her multiple issues. Placed NG tube now for symptom control. The patient will require further work-up regarding the area of potential stricture in her rectosigmoid colon. I recommend starting with a Gastrografin enema to visualize the narrowed area. Depending upon subsequent findings, the patient may require surgery (possibly including colostomy placement). All of this has been discussed with the patient and her her . Medicine to manage the patient's fluid status and hyponatremia. Surgery will continue to evaluate her potential colonic stricture. We will follow this patient very closely with you.
[2019-05-06 06:53] LABS: APPEARANCE,URINE SLIGHTLY-CLOUDY; BILIRUBIN,URINE SMALL (NEGATIVE); COLOR,URINE AMBER; GLUCOSE, URINE NEGATIVE (NEGATIVE); KETONES,URINE 20 mg/dL (NEGATIVE); LEUKOCYTE ESTERASE,URINE SMALL (NEGATIVE); NITRITE,URINE NEGATIVE (NEGATIVE); PROTEIN,URINE 30 mg/dL (NEGATIVE); URINE SPECIFIC GRAVITY 1.028
[2019-05-06 07:59] LABS: OSMOLALITY,URINE 702 mOsm/kg (300-900)
[2019-05-06] MEDS: PROMETHAZINE HCL INJ 25 MG/1 ML VIAL IV PRN (07:59)
[2019-05-06] MEDS ORDERED: MINERAL OIL ENEMA 133 ML PR SCH (08:00)
[2019-05-06 08:18] LABS: URINE SODIUM < 5 mmol/L (30-90)
[2019-05-06] MEDS ORDERED: ALBUMIN HUMAN 12.5 GM/50 ML RTUINJ IV SCH (09:00)
--- NOTE | 2019-05-06 09:14 | PDOC PROGRESS REPORT ---
Subjective Progress Note for:: 05/06/19 Subjective:: Feels better. No bowel movements but feels less distended. Still having some crampy but not persistent abdominal pain. Reason For Visit: COLON OBSTRUCTION,HYPONATREMIA,ANASARCA Physical Exam Vital Signs: Temp Pulse Resp BP Pulse Ox 98.7 F 86 18 102/78 97 05/05/19 21:17 05/06/19 07:00 05/05/19 21:17 05/05/19 21:17 05/05/19 21:17 Intake & Output 05/05/19 05/06/19 05/07/19 06:59 06:59 06:59 Intake Total 1100 Output Total 200 Balance 900 Weight 83.1 kg General appearance: PRESENT: no acute distress, cooperative Respiratory exam: PRESENT: clear to auscultation young Cardiovascular exam: PRESENT: RRR - Heart rate currently 98 on bedside exam GI/Abdominal exam: PRESENT: other - Moderately distended but not tight, mild d iffuse abdominal tenderness without peritoneal signs. Results Laboratory Results: 05/05/19 14:40 05/06/19 04:18 05/05/19 05/05/19 05/05/19 14:40 14:40 14:40 WBC 5.4 RBC 4.73 Hgb 14.9 Hct 43.2 MCV 91 MCH 31.5 MCHC 34.5 RDW 13.4 Plt Count 534 H Seg Neutrophils % 55.4 Sodium 123.7 L Potassium 4.8 Chloride 86 L Carbon Dioxide 23 Anion Gap 15 BUN 24 H Creatinine 0.63 Est GFR ( Amer) > 60 Glucose 105 Serum Osmolality 265 L Calcium 7.8 L Magnesium Total Bilirubin 1.3 AST 21 Alkaline Phosphatase 93 Total Protein 5.1 L Albumin 2.4 L Triglycerides Cholesterol LDL Cholesterol Direct VLDL Cholesterol HDL Cholesterol Lipase < 10.0 L TSH Free T4 Free T3 pg/mL Urine Color Urine Appearance Urine pH Ur Specific [place] Urine Protein Urine Glucose (UA) Urine Ketones Urine Blood Urine Nitrite Ur Leukocyte Esterase Urine WBC (Auto) Urine RBC (Auto) Urine Osmolality 05/05/19 05/06/19 05/06/19 15:25 04:18 04:18 WBC RBC Hgb Hct MCV MCH MCHC RDW Plt Count Seg Neutrophils % Sodium 125.3 L Potassium 3.9 Chloride 91 L Carbon Dioxide 23 Anion Gap 11 BUN 29 H Creatinine 0.64 Est GFR ( Amer) > 60 Glucose 103 Serum Osmolality Calcium 7.2 L Magnesium 2.2 Total Bilirubin AST Alkaline Phosphatase Total Protein Albumin Triglycerides 85 Cholesterol 72.97 LDL Cholesterol Direct 42 VLDL Cholesterol 17.0 HDL Cholesterol 26 L Lipase TSH 3.26 Free T4 1.18 Free T3 pg/mL 1.44 L Urine Color MARIA LUZ Urine Appearance SLIGHTLY-CLOUDY Urine pH 5.0 Ur Specific [place] 1.029 Urine Protein 30 H Urine Glucose (UA) NEGATIVE Urine Ketones 20 H Urine Blood NEGATIVE Urine Nitrite Ur Leukocyte Esterase Urine WBC (Auto) Urine RBC (Auto) 3 Urine Osmolality 05/06/19 05/06/19 05:10 05:10 WBC RBC Hgb Hct MCV MCH MCHC RDW Plt Count Seg Neutrophils % Sodium Potassium Chloride Carbon Dioxide Anion Gap BUN Creatinine Est GFR ( Amer) Glucose Serum Osmolality Calcium Magnesium Total Bilirubin AST Alkaline Phosphatase Total Protein Albumin Triglycerides Cholesterol LDL Cholesterol Direct VLDL Cholesterol HDL Cholesterol Lipase TSH Free T4 Free T3 pg/mL Urine Color MARIA LUZ Urine Appearance SLIGHTLY-CLOUDY Urine pH 5.0 Ur Specific [place] 1.028 Urine Protein 30 H Urine Glucose (UA) NEGATIVE Urine Ketones 20 H Urine Blood NEGATIVE Urine Nitrite NEGATIVE Ur Leukocyte Esterase SMALL H Urine WBC (Auto) 23 Urine RBC (Auto) 4 Urine Osmolality 702 05/05/19 14:40 NT-Pro-B Natriuret Pep 183 H Impressions: Acute Abdomen Series 05/05/19 17:05 IMPRESSION: Persistent dilated colon with mild small-bowel distention. KUB X-Ray 05/05/19 19:06 IMPRESSION: The NG tube is about 5 cm inside the stomach. Assessment & Plan - Diagnosis (1) Colon obstruction Is this a current diagnosis for this admission?: Yes Plan: Patient with evidence of rectosigmoid colonic obstruction. Her symptoms and exam appears to have improved from yesterday (resolved tachycardia, less pain and distention) and therefore we may have time to at least partially correct her hyponatremia and work-up this obstruction prior to surgical intervention. Will obtain a Gastrografin enema to further define this obstructive process in the rectosigmoid region. I have had a long discussion with the patient concerning surgical intervention. The possibilities would be exploratory laparotomy with decompressing loop colostomy versus distal partial colon resection with end colostomy versus total abdominal colectomy with end ileostomy. I have discussed with the patient the rationale for each of these options. I believe that the ideal option for her would be distal partial colon resection with end colostomy followed by a colostomy reversal in a few months. Will discuss further with her after the Gastrografin enema.
[2019-05-06] MEDS: FUROSEMIDE INJ/PF 20 MG/2 ML SDV IV SCH ×2 (10:20→10:30)
[2019-05-06] MEDS: MINERAL OIL ENEMA 133 ML PR ONE ×2 (10:30→11:13)
[2019-05-06] MEDS: PANTOPRAZOLE SODIUM 40 MG VIAL IV SCH (10:30)
--- NOTE | 2019-05-06 10:41 | RADIOLOGY REPORT (SQ) ---
EXAM DESCRIPTION: BARIUM ENEMA COMPLETED DATE/TIME: 05/06/2019 10:18 am REASON FOR STUDY: evaluate rectosigmoid stricture COMPARISON: CT abdomen pelvis 05/03/2019 FLUOROSCOPY TIME: 3.5 minutes of fluoroscopy was used. 29 images saved to PACS. TECHNIQUE: Following retrograde filling of the colon with Gastrografin, fluoroscopic spot and overhe ad imaging of the colon was obtained and saved to PACS. LIMITATIONS: None. FINDINGS: HOSPICE MASSAGE THERAPIST KUB: Dilated air and fluid-filled loops of colon throughout the abdomen. NG tube is seen within the stomach. . SIGMOID COLON: High-grade stricture causing near total obstruction of the mid sigmoid colon with only a small amount of contrast reaching the descending colon. Mid sigmoid mass is suggested. No divert iculum identified. RECTUM: No masses, strictures, or perforations. POST EVAC: Near complete evacuation of contrast. OTHER: No other significant finding. IMPRESSION: SUGGESTED MASS WITHIN THE MID SIGMOID COLON CAUSING NEAR COMPLETE OBSTRUCTION. A VERY S MALL AMOUNT CONTRAST DOES REACH THE DESCENDING COLON. RECTUM AND RECTOSIGMOID JUNCTION APPEARS ROSEANNE L. MODERATE AIR AND FLUID-FILLED DILATATION OF THE REMAINDER OF THE COLON DUE TO OBSTRUCTION. COMMENT: Findings were discussed with Dr. Rogers on 05/06/2019 at 1030 hours. Quality ID [id number]: Final reports for procedures using fluoroscopy that document radiation exposure tasneem maxine, or exposure time and number of fluorographic images (if radiation exposure indices are not avail able) TECHNICAL DOCUMENTATION: JOB ID: [id number] 2010 [employer]- All Rights Reserved Reading location - IP/workstation name: [email or web address] [id number]
--- NOTE | 2019-05-06 12:10 | PDOC PROGRESS REPORT ---
Subjective Progress Note for:: 05/06/19 Reason For Visit: COLON OBSTRUCTION,HYPONATREMIA,ANASARCA Physical Exam Vital Signs: Temp Pulse Resp BP Pulse Ox 98.7 F 86 18 102/78 97 05/05/19 21:17 05/06/19 07:00 05/05/19 21:17 05/05/19 21:17 05/05/19 21:17 Intake & Output 05/05/19 05/06/19 05/07/19 06:59 06:59 06:59 Intake Total 1100 928 Output Total 200 Balance 900 928 Weight 83.1 kg Results Laboratory Results: 05/05/19 14:40 05/06/19 04:18 05/05/19 05/05/19 05/05/19 14:40 14:40 14:40 WBC 5.4 RBC 4.73 Hgb 14.9 Hct 43.2 MCV 91 MCH 31.5 MCHC 34.5 RDW 13.4 Plt Count 534 H Seg Neutrophils % 55.4 Sodium 123.7 L Potassium 4.8 Chloride 86 L Carbon Dioxide 23 Anion Gap 15 BUN 24 H Creatinine 0.63 Est GFR ( Amer) > 60 Glucose 105 Serum Osmolality 265 L Calcium 7.8 L Magnesium Total Bilirubin 1.3 AST 21 Alkaline Phosphatase 93 Total Protein 5.1 L Albumin 2.4 L Triglycerides Cholesterol LDL Cholesterol Direct VLDL Cholesterol HDL Cholesterol Lipase < 10.0 L TSH Free T4 Free T3 pg/mL Urine Color Urine Appearance Urine pH Ur Specific [place] Urine Protein Urine Glucose (UA) Urine Ketones Urine Blood Urine Nitrite Ur Leukocyte Esterase Urine WBC (Auto) Urine RBC (Auto) Urine Osmolality 05/05/19 05/06/19 05/06/19 15:25 04:18 04:18 WBC RBC Hgb Hct MCV MCH MCHC RDW Plt Count Seg Neutrophils % Sodium 125.3 L Potassium 3.9 Chloride 91 L Carbon Dioxide 23 Anion Gap 11 BUN 29 H Creatinine 0.64 Est GFR ( Amer) > 60 Glucose 103 Serum Osmolality Calcium 7.2 L Magnesium 2.2 Total Bilirubin AST Alkaline Phosphatase Total Protein Albumin Triglycerides 85 Cholesterol 72.97 LDL Cholesterol Direct 42 VLDL Cholesterol 17.0 HDL Cholesterol 26 L Lipase TSH 3.26 Free T4 1.18 Free T3 pg/mL 1.44 L Urine Color MARIA LUZ Urine Appearance SLIGHTLY-CLOUDY Urine pH 5.0 Ur Specific [place] 1.029 Urine Protein 30 H Urine Glucose (UA) NEGATIVE Urine Ketones 20 H Urine Blood NEGATIVE Urine Nitrite Ur Leukocyte Esterase Urine WBC (Auto) Urine RBC (Auto) 3 Urine Osmolality 05/06/19 05/06/19 05:10 05:10 WBC RBC Hgb Hct MCV MCH MCHC RDW Plt Count Seg Neutrophils % Sodium Potassium Chloride Carbon Dioxide Anion Gap BUN Creatinine Est GFR ( Amer) Glucose Serum Osmolality Calcium Magnesium Total Bilirubin AST Alkaline Phosphatase Total Protein Albumin Triglycerides Cholesterol LDL Cholesterol Direct VLDL Cholesterol HDL Cholesterol Lipase TSH Free T4 Free T3 pg/mL Urine Color MARIA LUZ Urine Appearance SLIGHTLY-CLOUDY Urine pH 5.0 Ur Specific [place] 1.028 Urine Protein 30 H Urine Glucose (UA) NEGATIVE Urine Ketones 20 H Urine Blood NEGATIVE Urine Nitrite NEGATIVE Ur Leukocyte Esterase SMALL H Urine WBC (Auto) 23 Urine RBC (Auto) 4 Urine Osmolality 702 05/05/19 14:40 NT-Pro-B Natriuret Pep 183 H Impressions: Acute Abdomen Series 05/05/19 17:05 IMPRESSION: Persistent dilated colon with mild small-bowel distention. KUB X-Ray 05/05/19 19:06 IMPRESSION: The NG tube is about 5 cm inside the stomach. Barium Enema 05/06/19 00:00 IMPRESSION: SUGGESTED MASS WITHIN THE MID SIGMOID COLON CAUSING NEAR COMPLETE OBSTRUCTION. A VERY SMALL AMOUNT CONTRAST DOES REACH THE DESCENDING COLON. RECTUM AND RECTOSIGMOID JUNCTION APPEARS NORMAL. MODERATE AIR AND FLUID-FILLED DILATATION OF THE REMAINDER OF THE COLON DUE TO OBSTRUCTION. Assessment & Plan - Diagnosis (1) Colon obstruction Is this a current diagnosis for this admission?: Yes Plan: Gastrografin enema demonstrates a very tight stricture at the mid to distal sigmoid colon with an appearance suspicious for a malignancy. In light of the impending complete large bowel obstruction, I have recommended to the patient exploratory laparotomy with a sigmoid colon resection with end colostomy. There is a possibility depending on what I find that she may require a subtotal colectomy with end ileostomy. There is also the possibility of having to do do just a diverting loop colostomy. I have discussed with the patient about the risk and benefits of the procedure including risk of adjacent structure injury, bleeding, infection, cardiopulmonary risks. Patient understands and agrees to proceed.
[2019-05-06] MEDS ORDERED: ROCURONIUM BROMIDE INJ 50 MG/5 ML VIAL IV ONE (14:01)
[2019-05-06] MEDS ORDERED: GLYCOPYRROLATE 1 MG/5 ML VIAL ONE (14:01)
[2019-05-06] MEDS ORDERED: ONDANSETRON HCL INJ/PF 4 MG/2 ML SDV ONE (14:01)
[2019-05-06] MEDS ORDERED: NEOSTIGMINE METHYLSULFATE 10 MG/10 ML VIAL ONE (14:01)
[2019-05-06] MEDS ORDERED: DEXAMETHASONE SOD PHOSPHATE INJ 4 MG/1 ML VIAL ONE (14:01)
[2019-05-06] MEDS ORDERED: SUCCINYLCHOLINE CHLORIDE INJ 200 MG/10 ML VIAL ONE (14:01)
[2019-05-06] MEDS ORDERED: LEVOFLOXACIN 750 MG/D5W RTU 0 MG/0 ML RTUPB IV ONE (14:11)
[2019-05-06] MEDS ORDERED: METRONIDAZOLE 500 MG/NS RTU 500 MG/100 ML RTUPB IV ONE (14:11)
[2019-05-06] MEDS ORDERED: LEVOFLOXACIN 500 MG/D5W RTU 500 MG/100 ML RTUPB IV ONE (14:14)
[2019-05-06] MEDS ORDERED: LORAZEPAM INJ 2 MG/1 ML VIAL IV ONE (15:16)
--- NOTE | 2019-05-06 15:17 | PDOC PROGRESS REPORT ---
Subjective Progress Note for:: 05/06/19 Subjective:: The patient is extremely anxious. Dr. Rogers explained to her that the stricture in the sigmoid colon does need to be removed. If not there could be devastating complication such as a perforated colon with peritonitis. Reason For Visit: COLON OBSTRUCTION,HYPONATREMIA,ANASARCA Physical Exam Vital Signs: Temp Pulse Resp BP Pulse Ox 97.9 F 96 17 126/79 H 100 05/06/19 14:07 05/06/19 14:07 05/06/19 14:07 05/06/19 14:07 05/06/19 14:07 Intake & Output 05/05/19 05/06/19 05/07/19 06:59 06:59 06:59 Intake Total 1100 1028 Output Total 200 Balance 900 1028 Weight 83.1 kg General appearance: PRESENT: cooperative, mild distress, well-developed, other - Nasogastric tube in place Head exam: PRESENT: atraumatic, normocephalic Mouth exam: PRESENT: dry mucosa, tongue midline Respiratory exam: PRESENT: clear to auscultation young, symmetrical, unlabored. ABSENT: rales, rhonchi, tachypnea, wheezes Cardiovascular exam: PRESENT: RRR, +S1, +S2 GI/Abdominal exam: PRESENT: diminished bowel sounds - Somewhat difficult to assess due to the presence of the nasogastric tube connected to suction., distended, soft, tenderness - Diffusely Rectal exam: PRESENT: deferred Extremities exam: PRESENT: +2 edema Neurological exam: PRESENT: alert, awake, oriented to person, oriented to place, oriented to time, oriented to situation, CN II-XII grossly intact. ABSENT: motor sensory deficit Psychiatric exam: PRESENT: anxious - Very anxious with regard to the upcoming major surgery., flat affect. ABSENT: agitated Focused psych exam: ABSENT: delusional, restlessness Results Laboratory Results: 05/05/19 14:40 05/06/19 04:18 05/05/19 05/05/19 05/05/19 14:40 14:40 14:40 WBC 5.4 RBC 4.73 Hgb 14.9 Hct 43.2 MCV 91 MCH 31.5 MCHC 34.5 RDW 13.4 Plt Count 534 H Seg Neutrophils % 55.4 Sodium 123.7 L Potassium 4.8 Chloride 86 L Carbon Dioxide 23 Anion Gap 15 BUN 24 H Creatinine 0.63 Est GFR ( Amer) > 60 Glucose 105 Serum Osmolality 265 L Calcium 7.8 L Magnesium Total Bilirubin 1.3 AST 21 Alkaline Phosphatase 93 Total Protein 5.1 L Albumin 2.4 L Triglycerides Cholesterol LDL Cholesterol Direct VLDL Cholesterol HDL Cholesterol Lipase < 10.0 L TSH Free T4 Free T3 pg/mL Urine Color Urine Appearance Urine pH Ur Specific [place] Urine Protein Urine Glucose (UA) Urine Ketones Urine Blood Urine Nitrite Ur Leukocyte Esterase Urine WBC (Auto) Urine RBC (Auto) Urine Osmolality 05/05/19 05/06/19 05/06/19 15:25 04:18 04:18 WBC RBC Hgb Hct MCV MCH MCHC RDW Plt Count Seg Neutrophils % Sodium 125.3 L Potassium 3.9 Chloride 91 L Carbon Dioxide 23 Anion Gap 11 BUN 29 H Creatinine 0.64 Est GFR ( Amer) > 60 Glucose 103 Serum Osmolality Calcium 7.2 L Magnesium 2.2 Total Bilirubin AST Alkaline Phosphatase Total Protein Albumin Triglycerides 85 Cholesterol 72.97 LDL Cholesterol Direct 42 VLDL Cholesterol 17.0 HDL Cholesterol 26 L Lipase TSH 3.26 Free T4 1.18 Free T3 pg/mL 1.44 L Urine Color MARIA LUZ Urine Appearance SLIGHTLY-CLOUDY Urine pH 5.0 Ur Specific [place] 1.029 Urine Protein 30 H Urine Glucose (UA) NEGATIVE Urine Ketones 20 H Urine Blood NEGATIVE Urine Nitrite Ur Leukocyte Esterase Urine WBC (Auto) Urine RBC (Auto) 3 Urine Osmolality 05/06/19 05/06/19 05:10 05:10 WBC RBC Hgb Hct MCV MCH MCHC RDW Plt Count Seg Neutrophils % Sodium Potassium Chloride Carbon Dioxide Anion Gap BUN Creatinine Est GFR ( Amer) Glucose Serum Osmolality Calcium Magnesium Total Bilirubin AST Alkaline Phosphatase Total Protein Albumin Triglycerides Cholesterol LDL Cholesterol Direct VLDL Cholesterol HDL Cholesterol Lipase TSH Free T4 Free T3 pg/mL Urine Color MARIA LUZ Urine Appearance SLIGHTLY-CLOUDY Urine pH 5.0 Ur Specific [place] 1.028 Urine Protein 30 H Urine Glucose (UA) NEGATIVE Urine Ketones 20 H Urine Blood NEGATIVE Urine Nitrite NEGATIVE Ur Leukocyte Esterase SMALL H Urine WBC (Auto) 23 Urine RBC (Auto) 4 Urine Osmolality 702 05/05/19 14:40 NT-Pro-B Natriuret Pep 183 H Impressions: Acute Abdomen Series 05/05/19 17:05 IMPRESSION: Persistent dilated colon with mild small-bowel distention. KUB X-Ray 05/05/19 19:06 IMPRESSION: The NG tube is about 5 cm inside the stomach. Barium Enema 05/06/19 00:00 IMPRESSION: SUGGESTED MASS WITHIN THE MID SIGMOID COLON CAUSING NEAR COMPLETE OBSTRUCTION. A VERY SMALL AMOUNT CONTRAST DOES REACH THE DESCENDING COLON. RECTUM AND RECTOSIGMOID JUNCTION APPEARS NORMAL. MODERATE AIR AND FLUID-FILLED DILATATION OF THE REMAINDER OF THE COLON DUE TO OBSTRUCTION. Assessment and Plan - Diagnosis (1) Anasarca Is this a current diagnosis for this admission?: Yes (2) Hyponatremia Is this a current diagnosis for this admission?: Yes (3) Colon obstruction Is this a current diagnosis for this admission?: Yes (4) Abdominal pain Qualifiers: Abdominal location: generalized Qualified Code(s): R10.84 - Generalized abdominal pain Is this a current diagnosis for this admission?: Yes (5) Nausea and vomiting Qualifiers: Vomiting type: unspecified Vomiting Intractability: non-intractable Q ualified Code(s): R11.2 - Nausea with vomiting, unspecified Is this a current diagnosis for this admission?: Yes (6) Gastroesophageal reflux disease Qualifiers: Esophagitis presence: esophagitis presence not specified Qualified Code(s): K21.9 - Gastro-esophageal reflux disease without esophagitis Is this a current diagnosis for this admission?: Yes (7) Steatohepatitis Is this a current diagnosis for this admission?: Yes (8) Diverticulum of duodenum Is this a current diagnosis for this admission?: Yes (9) Abdominal wall hernia Is this a current diagnosis for this admission?: Yes (10) Hepatic cyst Is this a current diagnosis for this admission?: Yes (11) Cholelithiasis Qualifiers: Cholelithiasis location: gallbladder Cholecystitis presence: without cholecystitis Biliary obstruction: without biliary obstruction Qualified Code(s): K80.20 - Calculus of gallbladder without cholecystitis without obstruction Is this a current diagnosis for this admission?: Yes - Plan Summary Summary: 05/05/2019 Anasarca-unclear etiology. The patient's albumin is only 2.4 which is quite surprising for a 58-year-old female with no significant medical history. This is certainly contributing to the anasarca. I am going to give her albumin tonight and then albumin with furosemide in the morning to see if we can diurese some of the fluid off and this may help with her hyponatremia. Hyponatremia-possibly SIADH. There seems to be a colon stricture. If this is a malignancy it certainly could affect serum sodium levels. The patient will be n.p.o. because of the colon obstruction. She will be getting IV fluids as her pressure was marginal. If there is no noticeable improvement I will likely ob tain a nephrology consult. Urine sodium, urine osmolality and serum osmolality studies have been ordered. Colon Obstruction-the patient has been having trouble with her bowels for at least 7 weeks. There is a stricture in the sigmoid colon. Considering the timeframe malignancy is certainly a consideration. Dr. Richardson is consulting. After discussing the case with him he is going to order a Gastrografin enema. Based on these results it will likely determine the next clinical intervention. I have ordered some enema therapy as well but if this is a significant stricture enemas are not likely to make a difference. Abdominal distention, nausea and vomiting are secondary to the obstruction. Because of this she has been suffering with significant acid reflux as well. She will have an NG tube placed. I have ordered proton pump inhibitor therapy. The patient was also noted to have steatohepatitis with hepatic cysts. I have ordered a lipid profile to assess. A gallstone was noted by CT scan with a slightly distended gallbladder but there is no evidence of cholecystitis. 2 abdominal wall hernias were incidentally noted on CT scan with adipose tissue and fluid but no bowel present. Duodenal diverticuli were also noted. Although present it is unlikely that the gallstone, steatohepatitis, hepatic cysts, duodenal diverticuli and abdominal wall herniae are contributing to the [facility] problems of hyponatremia with anasarca and colon obstruction. 05/06/2019 Anasarca with hyponatremia-the patient is still on a significant positive fluid balance but the serum sodium is starting to shift upwards. I plan to continue the albumin but increase the furosemide to try and decrease swelling and improve the serum sodium. We will need to monitor the serum sodium closely as well as the kidney function. Colon obstruction-I did discuss the patient with Dr. Rogers. Dr. Richardson did order a Gastrografin enema. Radiology called Dr. Rogers with report. The patient definitely has a stricture in the sigmoid colon. Dr. Cuellar feels that surgery is appropriate and required and plans to take the patient to the operating room later today. We discussed the hyponatremia versus importance of the surgery and her hyponatremia is not a contraindication at this time. The patient will have a colostomy postoperatively. The patient will need education regarding the care of her colostomy. Will reassess after surgery. - Time Time Spent with patient: 15-24 minutes Medications reviewed and adjusted accordingly: Yes
[2019-05-06] MEDS ORDERED: FENTANYL CITRATE INJ/PF 100 MCG/2 ML AMPUL ONE (16:00)
[2019-05-06] MEDS ORDERED: MIDAZOLAM 2 MG/2 ML INJ ONE (16:01)
[2019-05-06] MEDS ORDERED: PROPOFOL INJ 200 MG/20 ML VIAL IV ONE (16:01)
[2019-05-06] MEDS ORDERED: HYDROMORPHONE HCL INJ/PF 2 MG/ML AMPULE ONE (16:01)
[2019-05-06] MEDS ORDERED: GLUCAGON,HUMAN RECOMB 1 MG INJ ONE (16:12)
[2019-05-06] MEDS ORDERED: BUPIVACAINE HCL 0.25 % INJ/PF (2.5 MG/1 ML) 30 ML VIAL ONE (16:12)
[2019-05-06] MEDS ORDERED: DIPHENHYDRAMINE HCL 50 MG/ML VIAL IV PRN (18:44)
[2019-05-06] MEDS ORDERED: MEPERIDINE HCL/PF INJ 25 MG/1 ML DISP.SYRIN IV PRN (18:44)
[2019-05-06] MEDS ORDERED: FENTANYL CITRATE INJ/PF 100 MCG/2 ML AMPUL IV PRN ×3 (18:44)
[2019-05-06] MEDS ORDERED: PROMETHAZINE HCL INJ 25 MG/1 ML VIAL IV PRN (18:44)
[2019-05-06] MEDS ORDERED: MORPHINE SULFATE 10 MG/ML INJ ONE (21:33)
[2019-05-06] MEDS ORDERED: ACETAMINOPHEN 1,000 MG/100 ML RTUPB IV ONE ×2 (21:33→21:45)
[2019-05-06] MEDS ORDERED: KETOROLAC TROMETHAMINE INJ/PF 30 MG/1 ML SDV ONE (21:33)
[2019-05-06] MEDS ORDERED: KETOROLAC TROMETHAMINE INJ/PF 30 MG/1 ML SDV IV ONE (21:45)
[2019-05-06] MEDS ORDERED: MORPHINE SULFATE 10 MG/ML INJ IV ONE ×2 (22:00→23:30)
[2019-05-07] MEDS: NORMAL SALINE 1000 ML 1,000 ML IV PRN ×2 (00:08→21:21)
[2019-05-07] MEDS: METRONIDAZOLE 500 MG/NS RTU 500 MG/100 ML RTUPB IV SCH ×4 (00:09→23:23)
[2019-05-07] MEDS: HEPARIN SOD (PORCINE) 5,000 UNIT/ML 1 ML VIAL SUBCUT SCH ×4 (00:45→21:20)
[2019-05-07] MEDS: MORPHINE SULFATE 10 MG/ML INJ IV PRN ×3 (01:12→20:06)
[2019-05-07] MEDS ORDERED: ALBUMIN HUMAN 12.5 GM/50 ML RTUINJ IV ONE ×2 (02:07→02:38)
[2019-05-07] MEDS: ALBUMIN HUMAN 25 GM/100 ML RTUINJ IV SCH ×2 (02:12→09:40)
[2019-05-07] MEDS: FUROSEMIDE INJ/PF 20 MG/2 ML SDV IV SCH ×3 (02:19→21:20)
[2019-05-07] MEDS: KETOROLAC TROMETHAMINE INJ/PF 30 MG/1 ML SDV IV PRN ×3 (06:12→23:36)
[2019-05-07 06:55] LABS: ABSOLUTE LYMPHOCYTES (AUTO) 0.9 10^3/uL (0.5-4.7); ABSOLUTE MONOCYTES (AUTO) 0.8 10^3/uL (0.1-1.4); ABSOLUTE NEUT (AUTO) 5.1 10^3/uL (1.7-8.2); BASOPHILS % (AUTO) 0.1 % (0-2); MEAN CORPUSCULAR HEMOGLOBIN 32.3 pg (27.0-33.4); MEAN CORPUSCULAR HGB CONC 35.1 g/dL (32.0-36.0); MEAN CORPUSCULAR VOLUME 92 fl (80-97); PLATELET COUNT 299 10^3/uL (150-450); RED BLOOD COUNT 3.25 10^6/uL (3.72-5.28); RED CELL DISTRIBUTION WIDTH 13.6 % (11.5-14.0); SEGMENTED NEUTROPHILS % (AUTO) 74.9 % (42-78); TOTAL CELLS COUNTED % (AUTO) 100 %; WHITE BLOOD COUNT 6.8 10^3/uL (4.0-10.5)
[2019-05-07 07:03] LABS: HEMOGLOBIN 10.5 g/dL (12.0-15.5)
[2019-05-07 07:14] LABS: ANION GAP 12 (5-19); BLOOD UREA NITROGEN 20 mg/dL (7-20); CARBON DIOXIDE 20 mmol/L (22-30); CHLORIDE 100 mmol/L (98-107); GLUCOSE 96 mg/dL (75-110)
[2019-05-07 07:40] LABS: CALCIUM 6.8 mg/dL (8.4-10.2)
[2019-05-07] MEDS ORDERED: MINERAL OIL ENEMA 133 ML PR SCH (09:30)
[2019-05-07] MEDS: LEVOFLOXACIN 500 MG/D5W RTU 500 MG/100 ML RTUPB IV SCH (09:44)
[2019-05-07] MEDS: PANTOPRAZOLE SODIUM 40 MG VIAL IV SCH (09:44)
[2019-05-07] MEDS ORDERED: CALCIUM GLUCONATE 1 GM/NS 50 ML RTU IV ONE ×2 (10:00→13:30)
[2019-05-07] MEDS ORDERED: FUROSEMIDE INJ/PF 40 MG/4 ML SDV IV ONE ×2 (10:00→13:00)
--- NOTE | 2019-05-07 11:25 | PDOC PROGRESS REPORT ---
Subjective Progress Note for:: 05/07/19 Subjective:: Feels much better this morning. Pain under good control. Reason For Visit: COLON OBSTRUCTION,HYPONATREMIA,ANASARCA Physical Exam Vital Signs: Temp Pulse Resp BP Pulse Ox 98.0 F 93 18 98/59 L 100 05/07/19 08:08 05/07/19 08:08 05/07/19 08:08 05/07/19 08:08 05/07/19 08:08 Intake & Output 05/06/19 05/07/19 05/08/19 06:59 06:59 06:59 Intake Total 1100 82250 Output Total 200 5900 Balance 900 4728 Weight 83.1 kg 88.9 kg General appearance: PRESENT: no acute distress, cooperative Respiratory exam: PRESENT: clear to auscultation young Cardiovascular exam: PRESENT: RRR GI/Abdominal exam: PRESENT: other - Soft, moderately distended but much improved from preoperative state. Diffuse abdominal tenderness without peritoneal signs. Ostomy is putting out copious amounts of thick liquid stool. Drain output is slightly turbid serosanguineous. Currently nonbloody. Skin exam: PRESENT: warm Results Laboratory Results: 05/07/19 06:36 05/07/19 06:36 05/07/19 05/07/19 06:36 06:36 WBC 6.8 RBC 3.25 L Hgb 10.5 L D Hct 30.0 L MCV 92 MCH 32.3 MCHC 35.1 RDW 13.6 Plt Count 299 Seg Neutrophils % 74.9 Sodium 131.6 L Potassium 4.0 Chloride 100 Carbon Dioxide 20 L Anion Gap 12 BUN 20 Creatinine 0.45 L Est GFR ( Amer) > 60 Glucose 96 Calcium 6.8 L* Magnesium 2.0 05/05/19 15:25 Clean Catch Midstream Urine Culture - Final Escherichia Coli 05/05/19 14:40 NT-Pro-B Natriuret Pep 183 H Impressions: Acute Abdomen Series 05/05/19 17:05 IMPRESSION: Persistent dilated colon with mild small-bowel distention. KUB X-Ray 05/05/19 19:06 IMPRESSION: The NG tube is about 5 cm inside the stomach. Barium Enema 05/06/19 00:00 IMPRESSION: SUGGESTED MASS WITHIN THE MID SIGMOID COLON CAUSING NEAR COMPLETE OBSTRUCTION. A VERY SMALL AMOUNT CONTRAST DOES REACH THE DESCENDING COLON. RECTUM AND RECTOSIGMOID JUNCTION APPEARS NORMAL. MODERATE AIR AND FLUID-FILLED DILATATION OF THE REMAINDER OF THE COLON DUE TO OBSTRUCTION. Assessment & Plan - Diagnosis (1) Colon obstruction Is this a current diagnosis for this admission?: Yes Plan: Secondary to mid sigmoid colon obstructive lesion. Status post sigmoid colec jemal with end colostomy. Patient looks good postoperatively. Diminished hematocrit secondary to intraoperative blood loss and hemodilution. We will try to get patient out of bed today.
[2019-05-07] MEDS ORDERED: CALCIUM GLUCONATE 1 GM/NS 50 ML RTU IV SCH (13:00)
--- NOTE | 2019-05-07 14:14 | PDOC PROGRESS REPORT ---
Subjective Progress Note for:: 05/07/19 Subjective:: The patient is postop day #1 from a sigmoid colectomy with end colostomy. Because of her bowel obstruction the ostomy was producing stool fairly quickly. The patient still has some anxieties because of the unexpected surgery and potential diagnosis of malignancy. Reason For Visit: COLON OBSTRUCTION,HYPONATREMIA,ANASARCA Physical Exam Vital Signs: Temp Pulse Resp BP Pulse Ox 98.6 F 98 18 87/52 L 97 05/07/19 11:32 05/07/19 11:32 05/07/19 08:08 05/07/19 11:32 05/07/19 11:32 Intake & Output 05/06/19 05/07/19 05/08/19 06:59 06:59 06:59 Intake Total 1100 20675 1200 Output Total 200 5900 Balance 900 4728 1200 Weight 83.1 kg 88.9 kg General appearance: PRESENT: no acute distress, cooperative, well-developed Eye exam: PRESENT: conjunctiva pink. ABSENT: scleral icterus Ear exam: PRESENT: normal external ear exam. ABSENT: bleeding, drainage Mouth exam: PRESENT: dry mucosa, tongue midline, other - Nasogastric tube in place Respiratory exam: PRESENT: clear to auscultation young, symmetrical, unlabored. ABSENT: prolonged expiratory phas, rales, rhonchi, tachypnea, wheezes Cardiovascular exam: PRESENT: RRR, +S1, +S2, systolic murmur - 2/6 GI/Abdominal exam: PRESENT: diminished bowel sounds, normal bowel sounds, soft, tenderness - Around the surgical site, other - Colostomy and a midline incision. ABSENT: firm, guarding Rectal exam: PRESENT: deferred Extremities exam: PRESENT: +1 edema Musculoskeletal exam: PRESENT: ambulatory, normal inspection Neurological exam: PRESENT: alert, awake, oriented to person, oriented to place, oriented to time, oriented to situation, CN II-XII grossly intact. ABSENT: altered, motor sensory deficit Psychiatric exam: PRESENT: anxious, appropriate affect. ABSENT: agitated Focused psych exam: ABSENT: delusional, restlessness Skin exam: PRESENT: dry, normal color, warm. ABSENT: rash Results Laboratory Results: 05/07/19 06:36 05/07/19 06:36 05/07/19 05/07/19 06:36 06:36 WBC 6.8 RBC 3.25 L Hgb 10.5 L D Hct 30.0 L MCV 92 MCH 32.3 MCHC 35.1 RDW 13.6 Plt Count 299 Seg Neutrophils % 74.9 Sodium 131.6 L Potassium 4.0 Chloride 100 Carbon Dioxide 20 L Anion Gap 12 BUN 20 Creatinine 0.45 L Est GFR ( Amer) > 60 Glucose 96 Calcium 6.8 L* Magnesium 2.0 05/05/19 15:25 Clean Catch Midstream Urine Culture - Final Escherichia Coli 05/05/19 14:40 NT-Pro-B Natriuret Pep 183 H Impressions: Acute Abdomen Series 05/05/19 17:05 IMPRESSION: Persistent dilated colon with mild small-bowel distention. KUB X-Ray 05/05/19 19:06 IMPRESSION: The NG tube is about 5 cm inside the stomach. Barium Enema 05/06/19 00:00 IMPRESSION: SUGGESTED MASS WITHIN THE MID SIGMOID COLON CAUSING NEAR COMPLETE OBSTRUCTION. A VERY SMALL AMOUNT CONTRAST DOES REACH THE DESCENDING COLON. RECTUM AND RECTOSIGMOID JUNCTION APPEARS NORMAL. MODERATE AIR AND FLUID-FILLED DILATATION OF THE REMAINDER OF THE COLON DUE TO OBSTRUCTION. Assessment and Plan - Diagnosis (1) Anasarca Is this a current diagnosis for this admission?: Yes (2) Hyponatremia Is this a current diagnosis for this admission?: Yes (3) Colon obstruction Is this a current diagnosis for this admission?: Yes (4) Abdominal pain Qualifiers: Abdominal location: generalized Qualified Code(s): R10.84 - Generalized abdominal pain Is this a current diagnosis for this admission?: Yes (5) Nausea and vomiting Qualifiers: Vomiting type: unspecified Vomiting Intractability: non-intractable Qualified Code(s): R11.2 - Nausea with vomiting, unspecified Is this a current diagnosis for this admission?: Yes (6) Gastroesophageal reflux disease Qualifiers: Esophagitis presence: esophagitis presence not specified Qualified Code(s): K21.9 - Gastro-esophageal reflux disease without esophagitis Is this a current diagnosis for this admission?: Yes (7) Steatohepatitis Is this a current diagnosis for this admission?: Yes (8) Diverticulum of duodenum Is this a current diagnosis for this admission?: Yes (9) Abdominal wall hernia Is this a current diagnosis for this admission?: Yes (10) Hepatic cyst Is this a current diagnosis for this admission?: Yes (11) Cholelithiasis Qualifiers: Cholelithiasis location: gallbladder Cholecystitis presence: without cholecystitis Biliary obstruction: without biliary obstruction Qualified Co de(s): K80.20 - Calculus of gallbladder without cholecystitis without obstruction Is this a current diagnosis for this admission?: Yes - Plan Summary Summary: 05/05/2019 Anasarca-unclear etiology. The patient's albumin is only 2.4 which is quite surprising for a 58-year-old female with no significant medical history. This is certainly contributing to the anasarca. I am going to give her albumin tonight and then albumin with furosemide in the morning to see if we can diurese some of the fluid off and this may help with her hyponatremia. Hyponatremia-possibly SIADH. There seems to be a colon stricture. If this is a malignancy it certainly could affect serum sodium levels. The patient will be n.p.o. because of the colon obstruction. She will be getting IV fluids as her pressure was marginal. If there is no noticeable improvement I will likely obtain a nephrology consult. Urine sodium, urine osmolality and serum osmolality studies have been ordered. Colon Obstruction-the patient has been having trouble with her bowels for at least 7 weeks. There is a stricture in the sigmoid colon. Considering the timeframe malignancy is certainly a consideration. Dr. Richardson is consulting. After discussing the case with him he is going to order a Gastrografin enema. Based on these results it will likely determine the next clinical intervention. I have ordered some enema therapy as well but if this is a significant stricture enemas are not likely to make a difference. Abdominal distention, nausea and vomiting are secondary to the obstruction. Because of this she has been suffering with significant acid reflux as well. She will have an NG tube placed. I have ordered proton pump inhibitor therapy. The patient was also noted to have steatohepatitis with hepatic cysts. I have ordered a lipid profile to assess. A gallstone was noted by CT scan with a slightly distended gallbladder but there is no evidence of cholecystitis. 2 abdominal wall hernias were incidentally noted on CT scan with adipose tissue and fluid but no bowel present. Duodenal diverticuli were also noted. Although present it is unlikely that the gallstone, steatohepatitis, hepatic cysts, duodenal diverticuli and abdominal wall herniae are contributing to the 2 primary problems of hyponatremia with anasarca and colon obstruction. 05/06/2019 Anasarca with hyponatremia-the patient is still on a significant positive fluid balance but the serum sodium is starting to shift upwards. I plan to continue the albumin but increase the furosemide to try and decrease swelling and improve the serum sodium. We will need to monitor the serum sodium closely as well as the kidney function. Colon obstruction-I did discuss the patient with Dr. Rogers. Dr. Richardson did order a Gastrografin enema. Radiology called Dr. Rogers with report. The patient definitely has a stricture in the sigmoid colon. Dr. Cuellar feels that surgery is appropriate and required and plans to take the patient to the operating room l ater today. We discussed the hyponatremia versus importance of the surgery and her hyponatremia is not a contraindication at this time. The patient will have a colostomy postoperatively. The patient will need education regarding the care of her colostomy. Will reassess after surgery. 05/07/2019 The patient is postop day #1 from her sigmoid colon resection for the bowel obstruction. She has a nasogastric tube in place. Pain control is adequate. Await pathology of sigmoid lesion Hyponatremia continues to improve with current regimen. Her serum sodium is now greater than 130. Her edema is also improving. We will continue to monitor the intake and output, laboratory studies and she will remain on telemetry. - Time Time Spent with patient: 15-24 minutes Medications reviewed and adjusted accordingly: Yes Anticipated discharge: Home
[2019-05-07] MEDS ORDERED: NORMAL SALINE 1000 ML 1,000 ML IV ONE (15:30)
--- NOTE | 2019-05-07 20:36 | PDOC PROGRESS REPORT ---
Subjective Progress Note for:: 05/07/19 Subjective:: Feels well. Ambulated. Reason For Visit: COLON OBSTRUCTION,HYPONATREMIA,ANASARCA Physical Exam Vital Signs: Temp Pulse Resp BP Pulse Ox 98.1 F 102 H 15 89/47 L 99 05/07/19 15:48 05/07/19 15:48 05/07/19 15:48 05/07/19 15:48 05/07/19 15:48 Intake & Output 05/06/19 05/07/19 05/08/19 06:59 06:59 06:59 Intake Total 1100 25832 1300 Output Total 200 5900 400 Balance 900 4728 900 Weight 83.1 kg 88.9 kg General appearance: PRESENT: no acute distress, cooperative Respiratory exam: PRESENT: clear to auscultation young Cardiovascular exam: PRESENT: RRR GI/Abdominal exam: PRESENT: soft - Soft, nondistended, mild diffuse abdominal tenderness without peritoneal signs. James-Dasilva drain output is slightly turbid nonbloody. Results Laboratory Results: 05/07/19 06:36 05/07/19 06:36 05/07/19 05/07/19 06:36 06:36 WBC 6.8 RBC 3.25 L Hgb 10.5 L D Hct 30.0 L MCV 92 MCH 32.3 MCHC 35.1 RDW 13.6 Plt Count 299 Seg Neutrophils % 74.9 Sodium 131.6 L Potassium 4.0 Chloride 100 Carbon Dioxide 20 L Anion Gap 12 BUN 20 Creatinine 0.45 L Est GFR ( Amer) > 60 Glucose 96 Calcium 6.8 L* Magnesium 2.0 05/05/19 15:25 Clean Catch Midstream Urine Culture - Final Escherichia Coli 05/05/19 14:40 NT-Pro-B Natriuret Pep 183 H Impressions: Acute Abdomen Series 05/05/19 17:05 IMPRESSION: Persistent dilated colon with mild small-bowel distention. KUB X-Ray 05/05/19 19:06 IMPRESSION: The NG tube is about 5 cm inside the stomach. Barium Enema 05/06/19 00:00 IMPRESSION: SUGGESTED MASS WITHIN THE MID SIGMOID COLON CAUSING NEAR COMPLETE OBSTRUCTION. A VERY SMALL AMOUNT CONTRAST DOES REACH THE DESCENDING COLON. RECTUM AND RECTOSIGMOID JUNCTION APPEARS NORMAL. MODERATE AIR AND FLUID-FILLED DILATATION OF THE REMAINDER OF THE COLON DUE TO OBSTRUCTION. Assessment & Plan - Diagnosis (1) Colon obstruction Is this a current diagnosis for this admission?: Yes Plan: Heart rate in the 90s and her blood pressure is in the high 80s systolic but patient appears well. She is alert and mentating very clearly and feels quite well. She has good urine output and her hand is not cool and her capillary refill is brisk. We will give her fluid bolus as needed but she looks okay currently.
[2019-05-08] MEDS: MORPHINE SULFATE 10 MG/ML INJ IV PRN ×3 (03:51→20:05)
[2019-05-08] MEDS: HEPARIN SOD (PORCINE) 5,000 UNIT/ML 1 ML VIAL SUBCUT SCH ×3 (05:25→22:10)
[2019-05-08] MEDS: METRONIDAZOLE 500 MG/NS RTU 500 MG/100 ML RTUPB IV SCH ×3 (05:25→18:05)
[2019-05-08 05:39] LABS: ABSOLUTE LYMPHOCYTES (AUTO) 0.4 10^3/uL (0.5-4.7); ABSOLUTE MONOCYTES (AUTO) 0.3 10^3/uL (0.1-1.4); ABSOLUTE NEUT (AUTO) 2.4 10^3/uL (1.7-8.2); BASOPHILS % (AUTO) 0.1 % (0-2); EOSINOPHILS % (AUTO) 0.5 % (0-6); HEMATOCRIT 25.6 % (36.0-47.0); HEMOGLOBIN 9.1 g/dL (12.0-15.5); LYMPHOCYTES % (AUTO) 13.5 % (13-45); MEAN CORPUSCULAR HEMOGLOBIN 32.5 pg (27.0-33.4); MEAN CORPUSCULAR HGB CONC 35.6 g/dL (32.0-36.0); MEAN CORPUSCULAR VOLUME 91 fl (80-97); MONOCYTES % (AUTO) 9.4 % (3-13); PLATELET COUNT 236 10^3/uL (150-450); SEGMENTED NEUTROPHILS % (AUTO) 76.5 % (42-78); TOTAL CELLS COUNTED % (AUTO) 100 %; WHITE BLOOD COUNT 3.2 10^3/uL (4.0-10.5)
[2019-05-08 06:03] LABS: ANION GAP 10 (5-19); BLOOD UREA NITROGEN 12 mg/dL (7-20); CARBON DIOXIDE 22 mmol/L (22-30); CHLORIDE 98 mmol/L (98-107); GLUCOSE 70 mg/dL (75-110); POTASSIUM 3.3 mmol/L (3.6-5.0)
[2019-05-08] MEDS ORDERED: LORAZEPAM INJ 2 MG/1 ML VIAL IV PRN (06:11)
[2019-05-08 06:21] LABS: CALCIUM 6.9 mg/dL (8.4-10.2)
[2019-05-08] MEDS: NORMAL SALINE 1000 ML 1,000 ML IV PRN ×2 (06:47→17:02)
[2019-05-08] MEDS: KETOROLAC TROMETHAMINE INJ/PF 30 MG/1 ML SDV IV PRN ×2 (06:50→17:02)
[2019-05-08] MEDS: PANTOPRAZOLE SODIUM 40 MG VIAL IV SCH (11:51)
[2019-05-08] MEDS: FUROSEMIDE INJ/PF 20 MG/2 ML SDV IV SCH (11:52)
--- NOTE | 2019-05-08 12:06 | PDOC PROGRESS REPORT ---
Subjective Progress Note for:: 05/08/19 Reason For Visit: COLON OBSTRUCTION,HYPONATREMIA,ANASARCA Third-floor, nasogastric tube drained several 2 to 300 cc overnight. Patient having copious amount of stool via colostomy. Has not been out of bed Physical Exam Vital Signs: Temp Pulse Resp BP Pulse Ox 97.9 F 90 18 86/50 L 98 05/08/19 11:32 05/08/19 11:32 05/08/19 11:32 05/08/19 11:32 05/08/19 11:32 Intake & Output 05/07/19 05/08/19 05/09/19 06:59 06:59 06:59 Intake Total 12352 3443 370 Output Total 5900 1350 1070 Balance 4728 2093 -700 Weight 88.9 kg 93.2 kg General appearance: PRESENT: no acute distress GI/Abdominal exam: PRESENT: other - Abdomen examined all dressings removed. Right lower quadrant drain with serosanguineous material left in position. All packing in between rodri removed. In the appliance leaking and being replaced; significant amount of stool in bag. Results Laboratory Results: 05/08/19 05:24 05/08/19 05:24 05/08/19 05/08/19 05:24 05:24 WBC 3.2 L RBC 2.80 L Hgb 9.1 L Hct 25.6 L MCV 91 MCH 32.5 MCHC 35.6 RDW 14.0 Plt Count 236 Seg Neutrophils % 76.5 Sodium 129.6 L Potassium 3.3 L Chloride 98 Carbon Dioxide 22 Anion Gap 10 BUN 12 Creatinine 0.46 L Est GFR ( Amer) > 60 Glucose 70 L Calcium 6.9 L* Magnesium 1.9 05/05/19 14:40 NT-Pro-B Natriuret Pep 183 H Impressions: Acute Abdomen Series 05/05/19 17:05 IMPRESSION: Persistent dilated colon with mild small-bowel distention. KUB X-Ray 05/05/19 19:06 IMPRESSION: The NG tube is about 5 cm inside the stomach. Barium Enema 05/06/19 00:00 IMPRESSION: SUGGESTED MASS WITHIN THE MID SIGMOID COLON CAUSING NEAR COMPLETE OBSTRUCTION. A VERY SMALL AMOUNT CONTRAST DOES REACH THE DESCENDING COLON. RECTUM AND RECTOSIGMOID JUNCTION APPEARS NORMAL. MODERATE AIR AND FLUID-FILLED DILATATION OF THE REMAINDER OF THE COLON DUE TO OBSTRUCTION. Assessment & Plan - Diagnosis (1) Colon obstruction Plan: Impression: Patient is 2 days status post exploratory laparotomy, sigmoid colectomy, diverting colostomy for obstructing sigmoid colon mass, final pathology pending, doing reasonably well with good ostomy output Recommendations: 1. Plan to nasogastric tube; will remove if patient tolerates satisfactorily 2. We will get patient out of bed to chair, and hopefully discontinue Nair catheter today. 3. Continue intravenous Levaquin and Flagyl. - Time Time Spent: 30 to 50 Minutes Smoking Cessation Education: 3 to 10 minutes Anticipated discharge: Home
--- NOTE | 2019-05-08 13:12 | PDOC PROGRESS REPORT ---
Subjective Progress Note for:: 05/08/19 Subjective:: The patient was seen by surgery earlier today. They removed her nasogastric tube. She will be able to start clear liquid diet. She still has marked edema in her legs. I plan to use compression wraps to assist with the swelling. She may also benefit from albumin and furosemide administration. Reason For Visit: COLON OBSTRUCTION,HYPONATREMIA,ANASARCA Physical Exam Vital Signs: Temp Pulse Resp BP Pulse Ox 97.9 F 90 18 86/50 L 98 05/08/19 11:32 05/08/19 11:32 05/08/19 11:32 05/08/19 11:32 05/08/19 11:32 Intake & Output 05/07/19 05/08/19 05/09/19 06:59 06:59 06:59 Intake Total 18370 3443 370 Output Total 5900 1350 1070 Balance 4728 2093 -700 Weight 88.9 kg 93.2 kg General appearance: PRESENT: cooperative, mild distress, well-developed Ear exam: PRESENT: normal external ear exam. ABSENT: bleeding, drainage Respiratory exam: PRESENT: clear to auscultation young, symmetrical, unlabored. ABSENT: prolonged expiratory phas, rales, rhonchi, tachypnea, wheezes Cardiovascular exam: PRESENT: RRR, +S1, +S2, systolic murmur - 2/6 GI/Abdominal exam: PRESENT: normal bowel sounds, soft, tenderness - Your midline incision, other - Colostomy on the left. ANDRE drain on the right.. ABSENT: distended Rectal exam: PRESENT: deferred Extremities exam: PRESENT: +2 edema Neurological exam: PRESENT: alert, awake, oriented to person, oriented to place, oriented to time, oriented to situation, CN II-XII grossly intact. ABSENT: altered, motor sensory deficit Psychiatric exam: PRESENT: anxious Results Laboratory Results: 05/08/19 05:24 05/08/19 05:24 05/08/19 05/08/19 05:24 05:24 WBC 3.2 L RBC 2.80 L Hgb 9.1 L Hct 25.6 L MCV 91 MCH 32.5 MCHC 35.6 RDW 14.0 Plt Count 236 Seg Neutrophils % 76.5 Sodium 129.6 L Potassium 3.3 L Chloride 98 Carbon Dioxide 22 Anion Gap 10 BUN 12 Creatinine 0.46 L Est GFR ( Amer) > 60 Glucose 70 L Calcium 6.9 L* Magnesium 1.9 05/05/19 14:40 NT-Pro-B Natriuret Pep 183 H Impressions: Acute Abdomen Series 05/05/19 17:05 IMPRESSION: Persistent dilated colon with mild small-bowel distention. KUB X-Ray 05/05/19 19:06 IMPRESSION: The NG tube is about 5 cm inside the stomach. Barium Enema 05/06/19 00:00 IMPRESSION: SUGGESTED MASS WITHIN THE MID SIGMOID COLON CAUSING NEAR COMPLETE OBSTRUCTION. A VERY SMALL AMOUNT CONTRAST DOES REACH THE DESCENDING COLON. RECTUM AND RECTOSIGMOID JUNCTION APPEARS NORMAL. MODERATE AIR AND FLUID-FILLED DILATATION OF THE REMAINDER OF THE COLON DUE TO OBSTRUCTION. Assessment and Plan - Diagnosis (1) Anasarca Is this a current diagnosis for this admission?: Yes (2) Hyponatremia Is this a current diagnosis for this admission?: Yes (3) Colon obstruction Is this a current diagnosis for this admission?: Yes (4) Abdominal pain Qualifiers: Abdominal location: generalized Qualified Code(s): R10.84 - Generalized abdominal pain Is this a current diagnosis for this admission?: Yes (5) Nausea and vomiting Qualifiers: Vomiting type: unspecified Vomiting Intractability: non-intractable Qualified Code(s): R11.2 - Nausea with vomiting, unspecified Is this a current diagnosis for this admission?: Yes (6) Gastroesophageal reflux disease Qualifiers: Esophagitis presence: esophagitis presence not specified Qualified Code(s): K21.9 - Gastro-esophageal reflux disease without esophagitis Is this a current diagnosis for this admission?: Yes (7) Steatohepatitis Is this a current diagnosis for this admission?: Yes (8) Diverticulum of duodenum Is this a current diagnosis for this admission?: Yes (9) Abdominal wall hernia Is this a current diagnosis for this admission?: Yes (10) Hepatic cyst Is this a current diagnosis for this admission?: Yes (11) Cholelithiasis Qualifiers: Cholelithiasis location: gallbladder Cholecystitis presence: without cholecystitis Biliary obstruction: without biliary obstruction Qualified Code(s): K80.20 - Calculus of gallbladder without cholecystitis without obstruction Is this a current diagnosis for this admission?: Yes - Plan Summary Summary: 05/05/2019 Anasarca-unclear etiology. The patient's albumin is only 2.4 which is quite surprising for a 58-year-old female with no significant medical history. This is certainly contributing to the anasarca. I am going to give her albumin tonight and then albumin with furosemide in the morning to see if we can diurese some of the fluid off and this may help with her hyponatremia. Hyponatremia-possibly SIADH. There seems to be a colon stricture. If this is a malignancy it certainly could affect serum sodium levels. The patient will be n.p.o. because of the colon obstruction. She will be getting IV fluids as her pressure was marginal. If there is no noticeable improvement I will likely obtain a nephrology consult. Urine sodium, urine osmolality and serum osmolality studies have been ordered. Colon Obstruction-the patient has been having trouble with her bowels for at least 7 weeks. There is a stricture in the sigmoid colon. Considering the timeframe malignancy is certainly a consideration. Dr. Richardson is consulting. After discussing the case with him he is going to order a Gastrografin enema. Based on these results it will likely determine the next clinical intervention. I have ordered some enema therapy as well but if this is a significant stricture enemas are not likely to make a difference. Abdominal distention, nausea and vomiting are secondary to the obstruction. Because of this she has been suffering with significant acid reflux as well. She will have an NG tube placed. I have ordered proton pump inhibitor therapy. The patient was also noted to have steatohepatitis with hepatic cysts. I have ordered a lipid profile to assess. A gallstone was noted by CT scan with a slightly distended gallbladder but there is no evidence of cholecystitis. 2 abdominal wall hernias were incidentally noted on CT scan with adipose tissue and fluid but no bowel present. Duodenal diverticuli were also noted. Although present it is unlikely that the gallstone, steatohepatitis, hepatic cysts, duodenal diverticuli and abdominal wall herniae are contributing to the 2 primary problems of hyponatremia with anasarca and colon obstruction. 05/06/2019 Anasarca with hyponatremia-the patient is still on a significant positive fluid balance but the serum sodium is starting to shift upwards. I plan to continue the albumin but increase the furosemide to try and decrease swelling and improve the serum sodium. We will need to monitor the serum sodium closely as well as the kidney function. Colon obstruction-I did discuss the patient with Dr. Rogers. Dr. Richardson did order a Gastrografin enema. Radiology called Dr. Rogers with report. The patient definitely has a stricture in the sigmoid colon. Dr. Cuellar feels that surgery is appropriate and required and plans to take the patient to the operating room later today. We discussed the hyponatremia versus importance of the surgery and her hyponatremia is not a contraindication at this time. The patient will have a colostomy postoperatively. The patient will need education regarding the care of her colostomy. Will reassess after surgery. 05/07/2019 The patient is postop day #1 from her sigmoid colon resection for the bowel obstruction. She has a nasogastric tube in place. Pain control is adequate. Await pathology of sigmoid lesion Hyponatremia continues to improve with current regimen. Her serum sodium is now greater than 130. Her edema is also improving. We will continue to monitor the intake and output, laboratory studies and she will remain on telemetry. 05/08/2019 The patient is still very anxious. The nurse reports that she does not want her family to know that she has a colostomy. Once again she appears to be quite anxious resting in bed. She is certainly pleased that the nasogastric tube is out and that she will have clear liquids. She is postop day 2 for sigmoid colon resection with end colostomy. James- Dasilva drain remains in place but the drainage is on the low side so will probably be removed tomorrow. Surgery has cleared her for a clear liquid diet. Her serum sodium dropped slightly. She still has marked edema and I did apply Coban wraps to both legs. Her blood pressure has been on the low side and so I will hold the furosemide. Pathology on the sigmoid colon is not available yet. We did spend some time discussing her anxiety and she has agreed to a trial of sertraline. I will start at 50 mg at night. I explained that this will just help before her anxiety but should not be too sedating. She was in agreement with a trial dose. - Time Time Spent with patient: 25-34 minutes Medications reviewed and adjusted accordingly: Yes
[2019-05-08] MEDS: LEVOFLOXACIN 500 MG/D5W RTU 500 MG/100 ML RTUPB IV SCH (13:24)
[2019-05-08] MEDS: CALCIUM GLUC IN NACL, ISO-OSM 1 GM/50 ML RTUPB IV SCH ×2 (15:33→17:02)
[2019-05-08] MEDS: TEMAZEPAM 15 MG CAPSULE PO PRN (22:09)
[2019-05-08] MEDS: SERTRALINE HCL 50 MG TABLET PO SCH ×2 (22:09→22:13)
[2019-05-08] MEDS: LORAZEPAM INJ 2 MG/1 ML VIAL IV PRN (22:09)
[2019-05-09] MEDS: METRONIDAZOLE 500 MG/NS RTU 500 MG/100 ML RTUPB IV SCH ×2 (00:42→05:07)
[2019-05-09] MEDS: NORMAL SALINE 1000 ML 1,000 ML IV PRN ×3 (00:44→18:04)
[2019-05-09] MEDS: HEPARIN SOD (PORCINE) 5,000 UNIT/ML 1 ML VIAL SUBCUT SCH ×3 (05:07→22:23)
[2019-05-09] MEDS: KETOROLAC TROMETHAMINE INJ/PF 30 MG/1 ML SDV IV PRN (05:07)
[2019-05-09 06:07] LABS: HEMATOCRIT 25.6 % (36.0-47.0); HEMOGLOBIN 9.1 g/dL (12.0-15.5); MEAN CORPUSCULAR HEMOGLOBIN 32.2 pg (27.0-33.4); MEAN CORPUSCULAR HGB CONC 35.6 g/dL (32.0-36.0); MEAN CORPUSCULAR VOLUME 91 fl (80-97); PLATELET COUNT 185 10^3/uL (150-450); RED BLOOD COUNT 2.82 10^6/uL (3.72-5.28); RED CELL DISTRIBUTION WIDTH 13.8 % (11.5-14.0)
[2019-05-09 06:20] LABS: ALBUMIN 1.8 g/dL (3.5-5.0); ANION GAP 7 (5-19); BLOOD UREA NITROGEN 12 mg/dL (7-20); CALCIUM 7.1 mg/dL (8.4-10.2); CARBON DIOXIDE 25 mmol/L (22-30); CHLORIDE 96 mmol/L (98-107); GLUCOSE 83 mg/dL (75-110); PHOSPHORUS 1.8 mg/dL (2.5-4.5)
[2019-05-09 06:23] LABS: POTASSIUM 2.7 mmol/L (3.6-5.0)
[2019-05-09] MEDS: POTASSIUM CHLORIDE 20 MEQ/50 ML RTU IV SCH ×2 (06:48→09:27)
[2019-05-09] MEDS: MORPHINE SULFATE 10 MG/ML INJ IV PRN (09:26)
[2019-05-09] MEDS: POTASSIUM CHLORIDE 10 MEQ TABLET.ER PO SCH ×3 (09:27→18:03)
[2019-05-09] MEDS: PANTOPRAZOLE SODIUM 40 MG VIAL IV SCH (09:27)
--- NOTE | 2019-05-09 10:33 | PDOC CONSULTATION ---
Consultation Consult Date: 05/09/19 Attending physician:: GARRY TAYLOR Provider Consulted: MONIQUE MORALES Consult reason:: Probable colon cancer, leukopenia History of Present Illness Admission Date/PCP: 05/05/19 19:22 Patient complains of: nausea vomiting obstruction History of Present Illness: JIM VICK is a 58 year old female who presented with about a 2-month history of alternating constipation with diarrhea, nausea vomiting, ultimately she came in with severe bloating and nausea, CT imaging indicated possible colonic stricture in the sigmoid area concerning for a colon cancer, and patient was then taken for surgery with left hemicolectomy with ostomy placement, pathology is pending from that, upon presentation 5 days ago initially to the ED, white count was normal but it has drifted down after surgery, today white count is 1.7. Past Medical History Medical History: None Past Surgical History Past Surgical History: Reports: Tubal Ligation, Other - Recent left hemicolectomy with ostomy placement Social History Information Source: Patient Lives with: Spouse/Significant other - Patient is and has 3 children Smoking Status: Never Smoker Electronic Cigarette use?: No Frequency of Alcohol Use: None Hx Recreational Drug Use: No Hx Prescription Drug Abuse: No - Advance Directive Resuscitation Status: Full Code Family History Family History: Reviewed & Not Pertinent Parental Family History Reviewed: Yes Children Family History Reviewed: Yes Sibling(s) Family History Reviewed.: Yes Medication/Allergy Home Medications: No Home Medications 05/05/19 Allergies/Adverse Reactions: No Known Allergies Allergy (Verified 05/05/19 14:05) Review of Systems Constitutional: ABSENT: chills, fever(s), headache(s), weight gain, weight loss Eyes: ABSENT: visual disturbances Ears: ABSENT: hearing changes Cardiovascular: ABSENT: chest pain, dyspnea on exertion, edema, orthropnea, palpitations Respiratory: ABSENT: cough, hemoptysis Gastrointestinal: ABSENT: abdominal pain, constipation, diarrhea, hematemesis, hematochezia, nausea, vomiting Genitourinary: ABSENT: dysuria, hematuria Musculoskeletal: ABSENT: joint swelling Integumentary: ABSENT: rash, wounds Neurological: ABSENT: abnormal gait, abnormal speech, confusion, dizziness, focal weakness, syncope Psychiatric: ABSENT: anxiety, depression, homidical ideation, suicidal ideation Endocrine: ABSENT: cold intolerance, heat intolerance, polydipsia, polyuria Hematologic/Lymphatic: ABSENT: easy bleeding, easy bruising Physical Exam Vital Signs: Temp Pulse Resp BP Pulse Ox 97.8 F 85 16 105/63 99 05/09/19 04:35 05/09/19 07:00 05/09/19 04:35 05/09/19 04:35 05/09/19 04:35 Intake & Output 05/08/19 05/09/19 05/10/19 06:59 06:59 06:59 Intake Total 3443 4030 922 Output Total 1350 3070 Balance 2093 960 922 Weight 96.2 kg General appearance: PRESENT: no acute distress, well-developed, well-nourished Head exam: PRESENT: atraumatic, normocephalic Eye exam: PRESENT: conjunctiva pink, EOMI, PERRLA. ABSENT: scleral icterus Ear exam: PRESENT: normal external ear exam Mouth exam: PRESENT: moist, tongue midline Neck exam: ABSENT: carotid bruit, JVD, lymphadenopathy, thyromegaly Respiratory exam: PRESENT: clear to auscultation young. ABSENT: rales, rhonchi, wheezes Cardiovascular exam: PRESENT: RRR. ABSENT: diastolic murmur, rubs, systolic murmur Pulses: PRESENT: normal dorsalis pedis pul Vascular exam: PRESENT: normal capillary refill GI/Abdominal exam: PRESENT: normal bowel sounds, soft. ABSENT: distended, guarding, mass, organolmegaly, rebound, tenderness Rectal exam: PRESENT: deferred Extremities exam: PRESENT: full ROM. ABSENT: calf tenderness, clubbing, pedal edema Neurological exam: PRESENT: alert, awake, oriented to person, oriented to place, oriented to time, oriented to situation, CN II-XII grossly intact. ABSENT: motor sensory deficit Psychiatric exam: PRESENT: appropriate affect, normal mood. ABSENT: homicidal ideation, suicidal ideation Skin exam: PRESENT: dry, intact, warm. ABSENT: cyanosis, rash Results Laboratory Results: 05/09/19 05:27 05/09/19 05:27 05/09/19 05/09/19 05/09/19 05:27 05:27 05:27 WBC 1.7 L D RBC 2.82 L Hgb 9.1 L Hct 25.6 L MCV 91 MCH 32.2 MCHC 35.6 RDW 13.8 Plt Count 185 Sodium 128.1 L Potassium 2.7 L* Chloride 96 L Carbon Dioxide 25 Anion Gap 7 BUN 12 Creatinine 0.38 L Est GFR ( Amer) > 60 Glucose 83 Calcium 7.1 L Ionized Calcium Zhao 1.07 L Phosphorus 1.8 L Magnesium 1.7 Albumin 1.8 L 05/05/19 14:40 NT-Pro-B Natriuret Pep 183 H Impressions: Acute Abdomen Series 05/05/19 17:05 IMPRESSION: Persistent dilated colon with mild small-bowel distention. KUB X-Ray 05/05/19 19:06 IMPRESSION: The NG tube is about 5 cm inside the stomach. Barium Enema 05/06/19 00:00 IMPRESSION: SUGGESTED MASS WITHIN THE MID SIGMOID COLON CAUSING NEAR COMPLETE OBSTRUCTION. A VERY SMALL AMOUNT CONTRAST DOES REACH THE DESCENDING COLON. RECTUM AND RECTOSIGMOID JUNCTION APPEARS NORMAL. MODERATE AIR AND FLUID-FILLED DILATATION OF THE REMAINDER OF THE COLON DUE TO OBSTRUCTION. Status: Image reviewed by me Assessment & Plan - Diagnosis (1) Colonic mass Is this a current diagnosis for this admission?: Yes Plan: Probable colon cancer but we will see what path shows. Will follow. (2) Leukopenia Qualifiers: Leukopenia type: neutropenia Neutropenia type: other Qualified Code(s): D70.8 - Other neutropenia Is this a current diagnosis for this admission?: Yes Plan: Probable myelosuppression from a combination of her presentation as well as possible antibiotic therapy. Levaquin and less likely Flagyl can cause this. Discussed with surgery who feel like she has had enough antibiotics, but she does have E. coli UTI which a cephalosporin could cover, and this would not cau se myelosuppression. Hospitalist team and surgical team will make these changes. Will follow. - Time Time Spent: Greater than 70 Minutes - Inpatient Certification Based on my medical assessment, after consideration of the patient's comorbidities, presenting symptoms, or acuity I expect that the services needed warrant INPATIENT care.: Yes I certify that my determination is in accordance with my understanding of Medicare's requirements for reasonable and necessary INPATIENT services [42 CFR 412.3e].: Yes Medical Necessity: Risk of Complication if Not Cared For in Hospital
[2019-05-09] MEDS: LEVOFLOXACIN 500 MG/D5W RTU 500 MG/100 ML RTUPB IV SCH (11:12)
[2019-05-09] MEDS: CEFAZOLIN 1 GM/D5W RTU 1 GM/50 ML RTUPB IV SCH ×3 (13:06→23:59)
--- NOTE | 2019-05-09 14:26 | PDOC PROGRESS REPORT ---
Subjective Progress Note for:: 05/09/19 Subjective:: Dr. Rogers called me from [place] because he was reviewing the patient's laboratory studies and so that her neutropenia had decreased significantly. Because of this Dr. Max was consulted. The patient was also noted to have hypokalemia. Her hyponatremia is improving. Reason For Visit: COLON OBSTRUCTION,HYPONATREMIA,ANASARCA Physical Exam Vital Signs: Temp Pulse Resp BP Pulse Ox 98.1 F 91 16 108/71 98 05/09/19 11:22 05/09/19 11:22 05/09/19 11:22 05/09/19 11:22 05/09/19 11:22 Intake & Output 05/08/19 05/09/19 05/10/19 06:59 06:59 06:59 Intake Total 3443 4030 1547 Output Total 1350 3070 400 Balance 2093 960 1147 Weight 96.2 kg Results Laboratory Results: 05/09/19 05:27 05/09/19 05:27 05/09/19 05/09/19 05/09/19 05:27 05:27 05:27 WBC 1.7 L D RBC 2.82 L Hgb 9.1 L Hct 25.6 L MCV 91 MCH 32.2 MCHC 35.6 RDW 13.8 Plt Count 185 Sodium 128.1 L Potassium 2.7 L* Chloride 96 L Carbon Dioxide 25 Anion Gap 7 BUN 12 Creatinine 0.38 L Est GFR ( Amer) > 60 Glucose 83 Calcium 7.1 L Ionized Calcium Zhao 1.07 L Phosphorus 1.8 L Magnesium 1.7 Albumin 1.8 L 05/05/19 14:40 NT-Pro-B Natriuret Pep 183 H Impressions: Acute Abdomen Series 05/05/19 17:05 IMPRESSION: Persistent dilated colon with mild small-bowel distention. KUB X-Ray 05/05/19 19:06 IMPRESSION: The NG tube is about 5 cm inside the stomach. Barium Enema 05/06/19 00:00 IMPRESSION: SUGGESTED MASS WITHIN THE MID SIGMOID COLON CAUSING NEAR COMPLETE OBSTRUCTION. A VERY SMALL AMOUNT CONTRAST DOES REACH THE DESCENDING COLON. RECTUM AND RECTOSIGMOID JUNCTION APPEARS NORMAL. MODERATE AIR AND FLUID-FILLED DILATATION OF THE REMAINDER OF THE COLON DUE TO OBSTRUCTION. Assessment and Plan - Diagnosis (1) Anasarca Is this a current diagnosis for this admission?: Yes (2) Hyponatremia Is this a current diagnosis for this admission?: Yes (3) Colon obstruction Is this a current diagnosis for this admission?: Yes (4) Abdominal pain Qualifiers: Abdominal location: generalized Qualified Code(s): R10.84 - Generalized abdominal pain Is this a current diagnosis for this admission?: Yes (5) Nausea and vomiting Qualifiers: Vomiting type: unspecified Vomiting Intractability: non-intractable Qualified Code(s): R11.2 - Nausea with vomiting, unspecified Is this a current diagnosis for this admission?: Yes (6) Gastroesophageal reflux disease Qualifiers: Esophagitis presence: esophagitis presence not specified Qualified Code(s): K21.9 - Gastro-esophageal reflux disease without esophagitis Is this a current diagnosis for this admission?: Yes (7) Steatohepatitis Is this a current diagnosis for this admission?: Yes (8) Diverticulum of duodenum Is this a current diagnosis for this admission?: Yes (9) Abdominal wall hernia Is this a current diagnosis for this admission?: Yes (10) Hepatic cyst Is this a current diagnosis for this admission?: Yes (11) Cholelithiasis Qualifiers: Cholelithiasis location: gallbladder Cholecystitis presence: without cholecystitis Biliary obstruction: without biliary obstruction Qualified Code(s): K80.20 - Calculus of gallbladder without cholecystitis without obstruction Is this a current diagnosis for this admission?: Yes (12) E. coli urinary tract infection Is this a current diagnosis for this admission?: Yes - Plan Summary Summary: 05/05/2019 Anasarca-unclear etiology. The patient's albumin is only 2.4 which is quite surprising for a 58-year-old female with no significant medical history. This is certainly contributing to the anasarca. I am going to give her albumin tonight and then albumin with furosemide in the morning to see if we can diurese some of the fluid off and this may help with her hyponatremia. Hyponatremia-possibly SIADH. There seems to be a colon stricture. If this is a malignancy it certainly could affect serum sodium levels. The patient will be n.p.o. because of the colon obstruction. She will be getting IV fluids as her pressure was marginal. If there is no noticeable improvement I will likely obtain a nephrology consult. Urine sodium, urine osmolality and serum osmolality studies have been ordered. Colon Obstruction-the patient has been having trouble with her bowels for at least 7 weeks. There is a stricture in the sigmoid colon. Considering the timeframe malignancy is certainly a consideration. Dr. Richardson is consulting. After discussing the case with him he is going to order a Gastrografin enema. Based on these results it will likely determine the next clinical intervention. I have ordered some enema therapy as well but if this is a significant stricture enemas are not likely to make a difference. Abdominal distention, nausea and vomiting are secondary to the obstruction. Because of this she has been suffering with significant acid reflux as well. She will have an NG tube placed. I have ordered proton pump inhibitor therapy. The patient was also noted to have steatohepatitis with hepatic cysts. I have ordered a lipid profile to assess. A gallstone was noted by CT scan with a slightly distended gallbladder but there is no evidence of cholecystitis. 2 abdominal wall hernias were incidentally noted on CT scan with adipose tissue and fluid but no bowel present. Duodenal diverticuli were also noted. Although present it is unlikely that the gallstone, steatohepatitis, hepatic cysts, duodenal diverticuli and abdominal wall herniae are contributing to the 2 p rimary problems of hyponatremia with anasarca and colon obstruction. 05/06/2019 Anasarca with hyponatremia-the patient is still on a significant positive fluid balance but the serum sodium is starting to shift upwards. I plan to continue the albumin but increase the furosemide to try and decrease swelling and improve the serum sodium. We will need to monitor the serum sodium closely as well as the kidney function. Colon obstruction-I did discuss the patient with Dr. Rogers. Dr. Richardson did order a Gastrografin enema. Radiology called Dr. Rogers with report. The patient definitely has a stricture in the sigmoid colon. Dr. Cuellar feels that surgery is appropriate and required and plans to take the patient to the operating room later today. We discussed the hyponatremia versus importance of the surgery and her hyponatremia is not a contraindication at this time. The patient will have a colostomy postoperatively. The patient will need education regarding the care of her colostomy. Will reassess after surgery. 05/07/2019 The patient is postop day #1 from her sigmoid colon resection for the bowel obstruction. She has a nasogastric tube in place. Pain control is adequate. Await pathology of sigmoid lesion Hyponatremia continues to improve with current regimen. Her serum sodium is now greater than 130. Her edema is also improving. We will continue to monitor the intake and output, laboratory studies and she will remain on telemetry. 05/08/2019 The patient is still very anxious. The nurse reports that she does not want her family to know that she has a colostomy. Once again she appears to be quite anxious resting in bed. She is certainly pleased that the nasogastric tube is out and that she will have clear liquids. She is postop day 2 for sigmoid colon resection with end colostomy. James- Dasilva drain remains in place but the drainage is on the low side so will probably be removed tomorrow. Surgery has cleared her for a clear liquid diet. Her serum sodium dropped slightly. She still has marked edema and I did apply Coban wraps to both legs. Her blood pressure has been on the low side and so I will hold the furosemide. Pathology on the sigmoid colon is not available yet. We did spend some time discussing her anxiety and she has agreed to a trial of sertraline. I will start at 50 mg at night. I explained that this will just help before her anxiety but should not be too sedating. She was in agreement with a trial dose. 05/09/2019 The patient serum sodium is improving but she exhibited hypokalemia today. Her hypocalcemia seems to be stable. We are replacing her electrolytes and monitoring them closely. She states that her legs feel better with the com pression wraps. Unfortunately the wraps only go to her knees but utilizing compression up to her thighs would be very difficult. I am trying to utilize furosemide to remove some of the fluid as well. I am going to start albumin each day with furosemide to see if I can improve diuresis but maintain normal sodium levels. Again we are going to monitor her electrolytes very closely every day. The patient is exhibiting leukopenia. I discussed the case with Dr. Max who saw the patient. It is likely her antibiotic therapy. She does have a urinary tract infection and we will change her antibiotics to Ancef as the E. coli is pansensitive. She still is debilitated and feels that she cannot lift her legs off the bed due to the significant edema. This in fact is very likely true. We will order physical therapy to see the patient. Depression and anxiety-I spent some time yesterday discussing the fact that she could benefit from scheduled medications that would help with anxiety. I do also feel that she is quite depressed. I think she is in denial. She had agreed to a trial of Zoloft yesterday during my visit but she refused to take it last night. This is unfortunate as I feel she would significantly benefit long- term from antidepressant therapy. The pathology on the sigmoid colon resection is not available yet. It is most likely malignant. It is possible that this could have been affecting her serum sodium levels as well. As noted above Dr. Max is seeing the patient. - Time Time Spent with patient: 15-24 minutes Medications reviewed and adjusted accordingly: Yes
--- NOTE | 2019-05-09 15:44 | PDOC PROGRESS REPORT ---
Subjective Progress Note for:: 05/09/19 Reason For Visit: COLON OBSTRUCTION,HYPONATREMIA,ANASARCA Patient examined this morning and this afternoon. She is doing much better, having excellent ostomy output, tolerated full liquids and now advanced to regular groceries. She was out of bed yesterday to chair not out of bed today. Is voiding, urine dark. Physical Exam Vital Signs: Temp Pulse Resp BP Pulse Ox 98.1 F 101 H 16 108/71 98 05/09/19 11:22 05/09/19 14:00 05/09/19 11:22 05/09/19 11:22 05/09/19 11:22 Intake & Output 05/08/19 05/09/19 05/10/19 06:59 06:59 06:59 Intake Total 3443 4030 1547 Output Total 1350 3070 400 Balance 2093 960 1147 Weight 96.2 kg General appearance: PRESENT: no acute distress GI/Abdominal exam: PRESENT: other - Abdomen examined. Honeycomb dressing over approximated midline stapled wound. Right lower quadrant drain removed. Ostomy functioning satisfactorily. Results Laboratory Results: 05/09/19 05:27 05/09/19 05:27 05/09/19 05/09/19 05/09/19 05:27 05:27 05:27 WBC 1.7 L D RBC 2.82 L Hgb 9.1 L Hct 25.6 L MCV 91 MCH 32.2 MCHC 35.6 RDW 13.8 Plt Count 185 Sodium 128.1 L Potassium 2.7 L* Chloride 96 L Carbon Dioxide 25 Anion Gap 7 BUN 12 Creatinine 0.38 L Est GFR ( Amer) > 60 Glucose 83 Calcium 7.1 L Ionized Calcium Zhao 1.07 L Phosphorus 1.8 L Magnesium 1.7 Albumin 1.8 L 05/05/19 14:40 NT-Pro-B Natriuret Pep 183 H Impressions: Acute Abdomen Series 05/05/19 17:05 IMPRESSION: Persistent dilated colon with mild small-bowel distention. KUB X-Ray 05/05/19 19:06 IMPRESSION: The NG tube is about 5 cm inside the stomach. Barium Enema 05/06/19 00:00 IMPRESSION: SUGGESTED MASS WITHIN THE MID SIGMOID COLON CAUSING NEAR COMPLETE OBSTRUCTION. A VERY SMALL AMOUNT CONTRAST DOES REACH THE DESCENDING COLON. RECTUM AND RECTOSIGMOID JUNCTION APPEARS NORMAL. MODERATE AIR AND FLUID-FILLED DILATATION OF THE REMAINDER OF THE COLON DUE TO OBSTRUCTION. Assessment & Plan - Diagnosis (1) Colon obstruction Is this a current diagnosis for this admission?: Yes (2) Colonic mass Is this a current diagnosis for this admission?: Yes Plan: Impression: No colonic mass consistent with malignancy status post sigmoid colectomy, colostomy, postop day 3, doing well, tolerating a diet excellent ostomy output, pain managed well; hypokalemia, and leukopenia, exact etiology unknown Recommendations: 1. Appreciate Dr. Max input. Agree with stopping Flagyl and Levaquin; in treating residual UTI with Keflex 2. Increase physical activity, monitor urine output, teach patient local wound care and ostomy care; anticipate serous drainage from midline wound and drain pullout site. 3. Anticipate discharge home in the next 24 to 48 hours. - Time Time Spent: 30 to 50 Minutes
[2019-05-09] MEDS ORDERED: NORMAL SALINE 1000 ML 1,000 ML IV PRN (19:48)
[2019-05-09] MEDS: ALBUMIN HUMAN 12.5 GM/50 ML RTUINJ IV SCH ×2 (21:56→21:57)
[2019-05-09] MEDS: TEMAZEPAM 15 MG CAPSULE PO PRN (22:24)
[2019-05-09] MEDS: SERTRALINE HCL 50 MG TABLET PO SCH (22:24)
[2019-05-09] MEDS: LORAZEPAM INJ 2 MG/1 ML VIAL IV PRN (22:24)
[2019-05-09] MEDS ORDERED: ALBUMIN HUMAN 25 GM/100 ML RTUINJ IV ONE (22:30)
[2019-05-09] MEDS ORDERED: ALBUMIN HUMAN 25.0 GM/100 ML RTUINJ IV ONE (22:35)
[2019-05-10 06:06] LABS: HEMATOCRIT 22.9 % (36.0-47.0); HEMOGLOBIN 8.1 g/dL (12.0-15.5); MEAN CORPUSCULAR HEMOGLOBIN 31.9 pg (27.0-33.4); MEAN CORPUSCULAR HGB CONC 35.3 g/dL (32.0-36.0); MEAN CORPUSCULAR VOLUME 91 fl (80-97); PLATELET COUNT 147 10^3/uL (150-450); RED BLOOD COUNT 2.53 10^6/uL (3.72-5.28); RED CELL DISTRIBUTION WIDTH 13.7 % (11.5-14.0); WHITE BLOOD COUNT 2.2 10^3/uL (4.0-10.5)
[2019-05-10] MEDS: HEPARIN SOD (PORCINE) 5,000 UNIT/ML 1 ML VIAL SUBCUT SCH (06:19)
[2019-05-10] MEDS: CEFAZOLIN 1 GM/D5W RTU 1 GM/50 ML RTUPB IV SCH ×4 (06:19→23:10)
[2019-05-10] MEDS: KETOROLAC TROMETHAMINE INJ/PF 30 MG/1 ML SDV IV PRN ×3 (06:20→12:48)
[2019-05-10 06:21] LABS: ALBUMIN 1.7 g/dL (3.5-5.0); BLOOD UREA NITROGEN 8 mg/dL (7-20); CALCIUM 7.1 mg/dL (8.4-10.2); CARBON DIOXIDE 22 mmol/L (22-30); CHLORIDE 103 mmol/L (98-107); GLUCOSE 112 mg/dL (75-110); PHOSPHORUS 1.5 mg/dL (2.5-4.5); POTASSIUM 3.1 mmol/L (3.6-5.0)
[2019-05-10 06:27] LABS: ANION GAP 5 (5-19)
[2019-05-10 06:34] LABS: ABSOLUTE LYMPHOCYTES# (MANUAL) 0.7 10^3/uL (0.5-4.7); ABSOLUTE MONOCYTES # (MANUAL) 0.2 10^3/uL (0.1-1.4); BASOPHILS % (MANUAL) 0 % (0-2); EOSINOPHILS % (MANUAL) 0 % (0-6); LYMPHOCYTES % (MANUAL) 32 % (13-45); MONOCYTES % (MANUAL) 8 % (3-13); PLATELET COMMENT DECREASED; RBC MORPHOLOGY COMMENT NORMO-CYTIC/CHROMIC; SEGMENTED NEUTROPHILS % (MAN) 60 % (42-78); TOTAL CELLS COUNTED 100
--- NOTE | 2019-05-10 08:08 | PDOC PROGRESS REPORT ---
Subjective Progress Note for:: 05/10/19 Subjective:: Pain was very severe in the middle of the day as well as overnight, patient notes that the morphine dries her mouth out and makes her feel weird, she did not want any more of that. Toradol was helping but not taking away pain that much. Today I discussed change in pain meds. Reason For Visit: COLON OBSTRUCTION,HYPONATREMIA,ANASARCA Physical Exam Vital Signs: Temp Pulse Resp BP Pulse Ox 98.4 F 92 18 104/73 100 05/10/19 03:37 05/10/19 07:37 05/10/19 07:37 05/10/19 07:37 05/10/19 07:37 Intake & Output 05/09/19 05/10/19 05/11/19 06:59 06:59 06:59 Intake Total 4030 3829 Output Total 3070 1700 Balance 960 2129 Weight 96.2 kg 95.6 kg General appearance: PRESENT: no acute distress, well-developed, well-nourished Head exam: PRESENT: atraumatic, normocephalic Eye exam: PRESENT: conjunctiva pink, EOMI, PERRLA. ABSENT: scleral icterus Ear exam: PRESENT: normal external ear exam Mouth exam: PRESENT: moist, tongue midline Neck exam: ABSENT: carotid bruit, JVD, lymphadenopathy, thyromegaly Respiratory exam: PRESENT: clear to auscultation young. ABSENT: rales, rhonchi, wheezes Cardiovascular exam: PRESENT: RRR. ABSENT: diastolic murmur, rubs, systolic murmur Pulses: PRESENT: normal dorsalis pedis pul Vascular exam: PRESENT: normal capillary refill GI/Abdominal exam: PRESENT: normal bowel sounds, soft. ABSENT: distended, guarding, mass, organolmegaly, rebound, tenderness Rectal exam: PRESENT: deferred Extremities exam: PRESENT: full ROM. ABSENT: calf tenderness, clubbing, pedal edema Neurological exam: PRESENT: alert, awake, oriented to person, oriented to place, oriented to time, oriented to situation, CN II-XII grossly intact. ABSENT: motor sensory deficit Psychiatric exam: PRESENT: appropriate affect, normal mood. ABSENT: homicidal ideation, suicidal ideation Skin exam: PRESENT: dry, intact, warm. ABSENT: cyanosis, rash Results Laboratory Results: 05/10/19 05:43 05/10/19 05:43 05/10/19 05/10/19 05:43 05:43 WBC 2.2 L RBC 2.53 L Hgb 8.1 L Hct 22.9 L MCV 91 MCH 31.9 MCHC 35.3 RDW 13.7 Plt Count 147 L Seg Neutrophils % Not Reportable Sodium 129.7 L Potassium 3.1 L Chloride 103 Carbon Dioxide 22 Anion Gap 5 BUN 8 Creatinine 0.30 L Est GFR ( Amer) > 60 Glucose 112 H Calcium 7.1 L Phosphorus 1.5 L Magnesium 1.7 Albumin 1.7 L 05/05/19 14:40 NT-Pro-B Natriuret Pep 183 H Impressions: Acute Abdomen Series 05/05/19 17:05 IMPRESSION: Persistent dilated colon with mild small-bowel distention. KUB X-Ray 05/05/19 19:06 IMPRESSION: The NG tube is about 5 cm inside the stomach. Barium Enema 05/06/19 00:00 IMPRESSION: SUGGESTED MASS WITHIN THE MID SIGMOID COLON CAUSING NEAR COMPLETE OBSTRUCTION. A VERY SMALL AMOUNT CONTRAST DOES REACH THE DESCENDING COLON. RECTUM AND RECTOSIGMOID JUNCTION APPEARS NORMAL. MODERATE AIR AND FLUID-FILLED DILATATION OF THE REMAINDER OF THE COLON DUE TO OBSTRUCTION. Assessment & Plan - Diagnosis (1) Colonic mass Is this a current diagnosis for this admission?: Yes Plan: Awaiting pathology, will discuss further once we have the path back. (2) Leukopenia Qualifiers: Leukopenia type: neutropenia Neutropenia type: other Qualified Code(s): D70.8 - Other neutropenia Is this a current diagnosis for this admission?: Yes Plan: Improved, will follow (3) Anemia Qualifiers: Anemia type: unspecified type Qualified Code(s): D64.9 - Anemia, unspecified Is this a current diagnosis for this admission?: Yes Plan: Awaiting work-up, I sent iron studies B12 levels folate levels, but she is likely to be iron deficient. If she is iron deficient I will give her IV iron. (4) Post-operative pain Is this a current diagnosis for this admission?: Yes Plan: Placed oxycodone for pain scale of 1-3, low-dose Dilaudid for pain scale of 4-5. - Time Time Spent with patient: 35 or more minutes
[2019-05-10] MEDS: POTASSIUM CHLORIDE 10 MEQ TABLET.ER PO SCH ×3 (08:16→17:11)
[2019-05-10 08:24] LABS: ABSOLUTE RETICS # 0.016 10^6/uL (0.028-0.122); RETICULOCYTE COUNT (AUTO) 0.65 % (0.66-2.85)
[2019-05-10 08:30] LABS: IRON(TIBC) 40.6 ug/dL (37-170)
[2019-05-10] MEDS ORDERED: HYDROMORPHONE HCL INJ/PF 2 MG/ML AMPULE IV PRN (09:18)
--- NOTE | 2019-05-10 09:35 | PDOC PROGRESS REPORT ---
Subjective Progress Note for:: 05/10/19 Subjective:: s/p partial colectomy and colostomy for obstruction Reason For Visit: COLON OBSTRUCTION,HYPONATREMIA,ANASARCA Physical Exam Vital Signs: Temp Pulse Resp BP Pulse Ox 98.4 F 92 18 104/73 100 05/10/19 03:37 05/10/19 07:37 05/10/19 07:37 05/10/19 07:37 05/10/19 07:37 Intake & Output 05/09/19 05/10/19 05/11/19 06:59 06:59 06:59 Intake Total 4030 3829 Output Total 3070 1700 Balance 960 2129 Weight 96.2 kg 95.6 kg General appearance: PRESENT: no acute distress Head exam: PRESENT: normocephalic Eye exam: PRESENT: EOMI Ear exam: PRESENT: normal external ear exam Mouth exam: PRESENT: moist Neck exam: PRESENT: full ROM Respiratory exam: PRESENT: clear to auscultation young Cardiovascular exam: PRESENT: RRR Pulses: PRESENT: normal radial pulses, normal femoral pulses Vascular exam: PRESENT: normal capillary refill GI/Abdominal exam: PRESENT: soft, other - wound clean, stoma pink, functional Rectal exam: PRESENT: deferred Extremities exam: PRESENT: full ROM Musculoskeletal exam: PRESENT: full ROM Neurological exam: PRESENT: alert, awake, oriented to person, oriented to place Skin exam: PRESENT: dry Results Laboratory Results: 05/10/19 05:43 05/10/19 05:43 05/10/19 05/10/19 05/10/19 05:43 05:43 05:43 WBC 2.2 L RBC 2.53 L Hgb 8.1 L Hct 22.9 L MCV 91 MCH 31.9 MCHC 35.3 RDW 13.7 Plt Count 147 L Seg Neutrophils % Not Reportable Retic Count (auto) 0.65 L Sodium 129.7 L Potassium 3.1 L Chloride 103 Carbon Dioxide 22 Anion Gap 5 BUN 8 Creatinine 0.30 L Est GFR ( Amer) > 60 Glucose 112 H Calcium 7.1 L Phosphorus 1.5 L Magnesium 1.7 Albumin 1.7 L 05/05/19 14:40 NT-Pro-B Natriuret Pep 183 H Impressions: Acute Abdomen Series 05/05/19 17:05 IMPRESSION: Persistent dilated colon with mild small-bowel distention. KUB X-Ray 05/05/19 19:06 IMPRESSION: The NG tube is about 5 cm inside the stomach. Barium Enema 05/06/19 00:00 IMPRESSION: SUGGESTED MASS WITHIN THE MID SIGMOID COLON CAUSING NEAR COMPLETE OBSTRUCTION. A VERY SMALL AMOUNT CONTRAST DOES REACH THE DESCENDING COLON. RECTUM AND RECTOSIGMOID JUNCTION APPEARS NORMAL. MODERATE AIR AND FLUID-FILLED DILATATION OF THE REMAINDER OF THE COLON DUE TO OBSTRUCTION. Assessment & Plan - Plan Summary Plan Summary: s/p exploratory laparotomy and partial colectomy iwth colostomy for colonic obstruction path still pending stoma functional pt alexsander reg diet up in chair still with difficulty with ADL's difficulty getting out of bed still with rx for uti from surgical standpt, pt stable for discharge please reconsult surgey if necessary pt will need office f/u after discharge.
[2019-05-10] MEDS: FUROSEMIDE INJ/PF 20 MG/2 ML SDV IV SCH (09:37)
[2019-05-10] MEDS: PANTOPRAZOLE SODIUM 40 MG VIAL IV SCH (09:37)
[2019-05-10] MEDS: ALBUMIN HUMAN 25 GM/100 ML RTUINJ IV SCH (09:41)
[2019-05-10] MEDS: OXYCODONE HCL IR 5 MG TABLET PO PRN ×4 (09:42→22:56)
[2019-05-10 10:12] LABS: FOLATE 2.67 ng/mL (>2.76)
[2019-05-10 10:58] LABS: WHITE BLOOD COUNT 1.7 10^3/uL (4.0-10.5)
[2019-05-10 12:10] LABS: ABSOLUTE LYMPHOCYTES (AUTO) 0.9 10^3/uL (0.5-4.7); ABSOLUTE MONOCYTES (AUTO) 0.4 10^3/uL (0.1-1.4); BASOPHILS % (AUTO) 0.2 % (0-2); EOSINOPHILS % (AUTO) 0.7 % (0-6); HEMOGLOBIN 9.2 g/dL (12.0-15.5); LYMPHOCYTES % (AUTO) 26.2 % (13-45); MEAN CORPUSCULAR HEMOGLOBIN 32.1 pg (27.0-33.4); MEAN CORPUSCULAR HGB CONC 35.3 g/dL (32.0-36.0); MEAN CORPUSCULAR VOLUME 91 fl (80-97); MONOCYTES % (AUTO) 13.1 % (3-13); PLATELET COUNT 180 10^3/uL (150-450); RED BLOOD COUNT 2.86 10^6/uL (3.72-5.28); RED CELL DISTRIBUTION WIDTH 13.8 % (11.5-14.0); SEGMENTED NEUTROPHILS % (AUTO) 59.8 % (42-78); TOTAL CELLS COUNTED % (AUTO) 100 %; WHITE BLOOD COUNT 3.3 10^3/uL (4.0-10.5)
--- NOTE | 2019-05-10 12:53 | PDOC PROGRESS REPORT ---
Subjective Progress Note for:: 05/10/19 Subjective:: I spoke to Dr. De Luna in pathology. Reviewed the sigmoid colon lesion. He did not see any evidence of malignancy. This made the patient extremely happy. The patient's legs are still markedly swollen but her albumin has dropped below 2.0. I am going to institute albumin daily and a small dose of diuretic to try and help remove some of her fluid. I have also asked the opinion of the wound care center for ongoing lymphedema management. Reason For Visit: COLON OBSTRUCTION,HYPONATREMIA,ANASARCA Physical Exam Vital Signs: Temp Pulse Resp BP Pulse Ox 98.4 F 92 18 104/73 100 05/10/19 03:37 05/10/19 07:37 05/10/19 07:37 05/10/19 07:37 05/10/19 07:37 Intake & Output 05/09/19 05/10/19 05/11/19 06:59 06:59 06:59 Intake Total 4030 3829 50 Output Total 3070 1700 Balance 960 2129 50 Weight 96.2 kg 95.6 kg General appearance: PRESENT: no acute distress, cooperative, well-developed Head exam: PRESENT: atraumatic, normocephalic Eye exam: PRESENT: conjunctiva pale Ear exam: PRESENT: normal external ear exam. ABSENT: bleeding, drainage Mouth exam: PRESENT: moist, tongue midline Neck exam: PRESENT: full ROM. ABSENT: carotid bruit, lymphadenopathy Respiratory exam: PRESENT: rales - Faint rales at bases, symmetrical, unlabored. ABSENT: accessory muscle use, rhonchi, tachypnea, wheezes Cardiovascular exam: PRESENT: RRR, +S1, +S2 GI/Abdominal exam: PRESENT: normal bowel sounds, soft, tenderness - Near the incision., other - Colostomy functioning.. ABSENT: distended, firm, guarding Rectal exam: PRESENT: deferred, other - Colostomy on the left Extremities exam: PRESENT: other - 3-4+ edema lower extremities. The compression wraps applied 2 days ago have slid down on her legs. Still with marked edema through the thighs. Musculoskeletal exam: PRESENT: other - Patient did walk a few steps yesterday and she is in the chair today. We discussed higher leg elevation. Her leg still feel extremely heavy and she is having pain in her knees from the swelling. Neurological exam: PRESENT: alert, awake, oriented to person, oriented to place, oriented to time, oriented to situation, CN II-XII grossly intact. ABSENT: altered, motor sensory deficit Psychiatric exam: PRESENT: appropriate affect - Extremely happy regarding the news of no malignancy.. ABSENT: agitated, anxious Focused psych exam: ABSENT: delusional, restlessness Skin exam: PRESENT: pallor Results Laboratory Results: 05/10/19 11:49 05/10/19 05:43 05/09/19 05/10/19 05/10/19 05:27 05:43 05:43 WBC 1.7 L D 2.2 L RBC 2.53 L Hgb 8.1 L Hct 22.9 L MCV 91 MCH 31.9 MCHC 35.3 RDW 13.7 Plt Count 147 L Seg Neutrophils % Not Reportable Retic Count (auto) Sodium 129.7 L Potassium 3.1 L Chloride 103 Carbon Dioxide 22 Anion Gap 5 BUN 8 Creatinine 0.30 L Est GFR ( Amer) > 60 Glucose 112 H Calcium 7.1 L Phosphorus 1.5 L Magnesium 1.7 Iron TIBC % Saturation Ferritin Albumin 1.7 L Vitamin B12 Folate 05/10/19 05/10/19 05/10/19 05:43 05:43 11:49 WBC 3.3 L RBC 2.86 L Hgb 9.2 L Hct 26.0 L MCV 91 MCH 32.1 MCHC 35.3 RDW 13.8 Plt Count 180 Seg Neutrophils % 59.8 Retic Count (auto) 0.65 L Sodium Potassium Chloride Carbon Dioxide Anion Gap BUN Creatinine Est GFR ( Amer) Glucose Calcium Phosphorus Magnesium Iron 40.6 TIBC 109 L % Saturation 37 Ferritin 720.00 H Albumin Vitamin B12 399.0 Folate 2.67 L 05/05/19 14:40 NT-Pro-B Natriuret Pep 183 H Impressions: Acute Abdomen Series 05/05/19 17:05 IMPRESSION: Persistent dilated colon with mild small-bowel distention. KUB X-Ray 05/05/19 19:06 IMPRESSION: The NG tube is about 5 cm inside the stomach. Barium Enema 05/06/19 00:00 IMPRESSION: SUGGESTED MASS WITHIN THE MID SIGMOID COLON CAUSING NEAR COMPLETE OBSTRUCTION. A VERY SMALL AMOUNT CONTRAST DOES REACH THE DESCENDING COLON. RECTUM AND RECTOSIGMOID JUNCTION APPEARS NORMAL. MODERATE AIR AND FLUID-FILLED DILATATION OF THE REMAINDER OF THE COLON DUE TO OBSTRUCTION. Assessment and Plan - Diagnosis (1) Anasarca Is this a current diagnosis for this admission?: Yes (2) Hyponatremia Is this a current diagnosis for this admission?: Yes (3) Colon obstruction Is this a current diagnosis for this admission?: Yes (4) Abdominal pain Qualifiers: Abdominal location: generalized Qualified Code(s): R10.84 - Generalized abdominal pain Is this a current diagnosis for this admission?: Yes (5) Nausea and vomiting Qualifiers: Vomiting type: unspecified Vomiting Intractability: non-intractable Qualified Code(s): R11.2 - Nausea with vomiting, unspecified Is this a current diagnosis for this admission?: Yes (6) Gastroesophageal reflux disease Qualifiers: Esophagitis presence: esophagitis presence not specified Qualified Code(s): K21.9 - Gastro-esophageal reflux disease without esophagitis Is this a current diagnosis for this admission?: Yes (7) Steatohepatitis Is this a current diagnosis for this admission?: Yes (8) Diverticulum of duodenum Is this a current diagnosis for this admission?: Yes (9) Abdominal wall hernia Is this a current diagnosis for this admission?: Yes (10) Hepatic cyst Is this a current diagnosis for this admission?: Yes (11) Cholelithiasis Qualifiers: Cholelithiasis location: gallbladder Cholecystitis presence: without cholecystitis Biliary obstruction: without biliary obstruction Qualified Code(s): K80.20 - Calculus of gallbladder without cholecystitis without obstruction Is this a current diagnosis for this admission?: Yes (12) E. coli urinary tract infection Is this a current diagnosis for this admission?: Yes - Plan Summary Summary: 05/05/2019 Anasarca-unclear etiology. The patient's albumin is only 2.4 which is quite black rprising for a 58-year-old female with no significant medical history. This is certainly contributing to the anasarca. I am going to give her albumin tonight and then albumin with furosemide in the morning to see if we can diurese some of the fluid off and this may help with her hyponatremia. Hyponatremia-possibly SIADH. There seems to be a colon stricture. If this is a malignancy it certainly could affect serum sodium levels. The patient will be n.p.o. because of the colon obstruction. She will be getting IV fluids as her pressure was marginal. If there is no noticeable improvement I will likely obtain a nephrology consult. Urine sodium, urine osmolality and serum osmolality studies have been ordered. Colon Obstruction-the patient has been having trouble with her bowels for at [address] 7 weeks. There is a stricture in the sigmoid colon. Considering the timeframe malignancy is certainly a consideration. Dr. Richardson is consulting. After discussing the case with him he is going to order a Gastrografin enema. Based on these results it will likely determine the next clinical intervention. I have ordered some enema therapy as well but if this is a significant stricture enemas are not likely to make a difference. Abdominal distention, nausea and vomiting are secondary to the obstruction. Because of this she has been suffering with significant acid reflux as well. She will have an NG tube placed. I have ordered proton pump inhibitor therapy. The patient was also noted to have steatohepatitis with hepatic cysts. I have ordered a lipid profile to assess. A gallstone was noted by CT scan with a slightly distended gallbladder but there is no evidence of cholecystitis. 2 abdominal wall hernias were incidentally noted on CT scan with adipose tissue and fluid but no bowel present. Duodenal diverticuli were also noted. Although present it is unlikely that the gallstone, steatohepatitis, hepatic cysts, duodenal diverticuli and abdominal wall herniae are contributing to the 2 primary problems of hyponatremia with anasarca and colon obstruction. 05/06/2019 Anasarca with hyponatremia-the patient is still on a significant positive fluid balance but the serum sodium is starting to shift upwards. I plan to continue the albumin but increase the furosemide to try and decrease swelling and improve the serum sodium. We will need to monitor the serum sodium closely as well as the kidney function. Colon obstruction-I did discuss the patient with Dr. Rogers. Dr. Richardson did order a Gastrografin enema. Radiology called Dr. Rogers with report. The patient definitely has a stricture in the sigmoid colon. Dr. Cuellar feels that surgery is appropriate and required and plans to take the patient to the operating room later today. We discussed the hyponatremia versus importance of the surgery and her hyponatremia is not a contraindication at this time. The patient will have a colostomy postoperatively. The patient will need education regarding the care of her colostomy. Will reassess after surgery. 05/07/2019 The patient is postop day #1 from her sigmoid colon resection for the bowel obstruction. She has a nasogastric tube in place. Pain control is adequate. Await pathology of sigmoid lesion Hyponatremia continues to improve with current regimen. Her serum sodium is now greater than 130. Her edema is also improving. We will continue to monitor the intake and output, laboratory studies and she will remain on telemetry. 05/08/2019 The patient is still very anxious. The nurse reports that she does not want her family to know that she has a colostomy. Once again she appears to be quite anxious resting in bed. She is certainly pleased that the nasogastric tube is out and that she will have clear liquids. She is postop day 2 for sigmoid colon resection with end colostomy. James- Dasilva drain remains in place but the drainage is on the low side so will probably be removed tomorrow. Surgery has cleared her for a clear liquid diet. Her serum sodium dropped slightly. She still has marked edema and I did apply Coban wraps to both legs. Her blood pressure has been on the low side and so I will hold the furosemide. Pathology on the sigmoid colon is not available yet. We did spend some time discussing her anxiety and she has agreed to a trial of sertraline. I will start at 50 mg at night. I explained that this will just help before her anxiety but should not be too sedating. She was in agreement with a trial dose. 05/09/2019 The patient serum sodium is improving but she exhibited hypokalemia today. Her hypocalcemia seems to be stable. We are replacing her electrolytes and monitoring them closely. She states that her legs feel better with the compression wraps. Unfortunately the wraps only go to her knees but utilizing compression up to her thighs would be very difficult. I am trying to utilize furosemide to remove some of the fluid as well. I am going to start albumin each day with furosemide to see if I can improve diuresis but maintain normal sodium levels. Again we are going to monitor her electrolytes very closely ever y day. The patient is exhibiting leukopenia. I discussed the case with Dr. Max who saw the patient. It is likely her antibiotic therapy. She does have a urinary tract infection and we will change her antibiotics to Ancef as the E. coli is pansensitive. She still is debilitated and feels that she cannot lift her legs off the bed due to the significant edema. This in fact is very likely true. We will order physical therapy to see the patient. Depression and anxiety-I spent some time yesterday discussing the fact that she could benefit from scheduled medications that would help with anxiety. I do also feel that she is quite depressed. I think she is in denial. She had agreed to a trial of Zoloft yesterday during my visit but she refused to take it last night. This is unfortunate as I feel she would significantly benefit long- term from antidepressant therapy. The pathology on the sigmoid colon resection is not available yet. It is most likely malignant. It is possible that this could have been affecting her serum sodium levels as well. As noted above Dr. Max is seeing the patient. 05/10/[address] De Luna in pathology. There is no evidence of malignancy in the strictured portion of the sigmoid colon. The patient was very happy about that. She still has significant lower extremity pulmonary edema. We tried compression wraps but they slid down. I did call the wound care center to discuss lymphedema management. The patient may be a candidate to follow-up for ostomy teaching as well. Complete antibiotic therapy for the E. coli urinary tract infection. Serum sodium continues to rise slowly. Physical therapy did work with her. Once we are able to remove more fluid from her her legs will be energy scheduler and her gait should improve. She will likely be able to discharge to home with home health not only for physical therapy but also for ongoing ostomy teaching.
[2019-05-10 14:39] LABS: PATH REVIEW PATHOLOGIST REVIEWED
[2019-05-10] MEDS: TEMAZEPAM 15 MG CAPSULE PO PRN (22:56)
[2019-05-10] MEDS: SERTRALINE HCL 50 MG TABLET PO SCH (22:57)
[2019-05-11 05:41] LABS: HEMATOCRIT 26.3 % (36.0-47.0); HEMOGLOBIN 9.2 g/dL (12.0-15.5); MEAN CORPUSCULAR HEMOGLOBIN 31.7 pg (27.0-33.4); MEAN CORPUSCULAR HGB CONC 34.9 g/dL (32.0-36.0); MEAN CORPUSCULAR VOLUME 91 fl (80-97); PLATELET COUNT 162 10^3/uL (150-450); WHITE BLOOD COUNT 3.8 10^3/uL (4.0-10.5)
[2019-05-11] MEDS: CEFAZOLIN 1 GM/D5W RTU 1 GM/50 ML RTUPB IV SCH ×4 (05:53→23:22)
[2019-05-11 06:11] LABS: ALBUMIN 1.9 g/dL (3.5-5.0); ANION GAP 5 (5-19); BLOOD UREA NITROGEN 5 mg/dL (7-20); CALCIUM 7.1 mg/dL (8.4-10.2); CARBON DIOXIDE 26 mmol/L (22-30); CHLORIDE 100 mmol/L (98-107); GLUCOSE 90 mg/dL (75-110); PHOSPHORUS 1.6 mg/dL (2.5-4.5); POTASSIUM 3.2 mmol/L (3.6-5.0)
[2019-05-11 06:43] LABS: ABSOLUTE LYMPHOCYTES# (MANUAL) 0.9 10^3/uL (0.5-4.7); ABSOLUTE MONOCYTES # (MANUAL) 0.6 10^3/uL (0.1-1.4); BAND NEUTROPHILS % (MANUAL) 8 % (3-5); BASOPHILS % (MANUAL) 0 % (0-2); EOSINOPHILS % (MANUAL) 0 % (0-6); LYMPHOCYTES % (MANUAL) 24 % (13-45); MONOCYTES % (MANUAL) 15 % (3-13); SEGMENTED NEUTROPHILS % (MAN) 53 % (42-78); TOTAL CELLS COUNTED 100
[2019-05-11 06:46] LABS: ANISOCYTOSIS 1+; OVALOCYTES 1+; PLATELET COMMENT ADEQUATE; POIKILOCYTOSIS 1+; TOXIC GRANULATION 1+
--- NOTE | 2019-05-11 07:52 | PDOC PROGRESS REPORT ---
Subjective Progress Note for:: 05/11/19 Subjective:: Reviewed path, was negative for malignancy, discussed w/ pt. Also, wt ct is recovered. Hb improved. Iron/B12 levels nml but folate low likely 2nd to colonic issues. Will start oral folic acid. Otherwise, discussed w/ pt that she does not need oncology f/u. Reason For Visit: COLON OBSTRUCTION,HYPONATREMIA,ANASARCA Physical Exam Vital Signs: Temp Pulse Resp BP Pulse Ox 98.5 F 95 20 100/71 97 05/11/19 03:13 05/11/19 03:13 05/11/19 03:13 05/11/19 03:13 05/11/19 03:13 Intake & Output 05/10/19 05/11/19 05/12/19 06:59 06:59 06:59 Intake Total 3829 2380 Output Total 1700 1200 Balance 2129 1180 Weight 95.6 kg 102.3 kg General appearance: PRESENT: no acute distress, well-developed, well-nourished Head exam: PRESENT: atraumatic, normocephalic Eye exam: PRESENT: conjunctiva pink, EOMI, PERRLA. ABSENT: scleral icterus Ear exam: PRESENT: normal external ear exam Mouth exam: PRESENT: moist, tongue midline Neck exam: ABSENT: carotid bruit, JVD, lymphadenopathy, thyromegaly Respiratory exam: PRESENT: clear to auscultation young. ABSENT: rales, rhonchi, wheezes Cardiovascular exam: PRESENT: RRR. ABSENT: diastolic murmur, rubs, systolic murmur Pulses: PRESENT: normal dorsalis pedis pul Vascular exam: PRESENT: normal capillary refill GI/Abdominal exam: PRESENT: normal bowel sounds, soft. ABSENT: distended, guarding, mass, organolmegaly, rebound, tenderness Rectal exam: PRESENT: deferred Extremities exam: PRESENT: full ROM. ABSENT: calf tenderness, clubbing, pedal edema Neurological exam: PRESENT: alert, awake, oriented to person, oriented to place, oriented to time, oriented to situation, CN II-XII grossly intact. ABSENT: motor sensory deficit Psychiatric exam: PRESENT: appropriate affect, normal mood. ABSENT: homicidal ideation, suicidal ideation Skin exam: PRESENT: dry, intact, warm. ABSENT: cyanosis, rash Results Laboratory Results: 05/11/19 04:28 05/11/19 04:28 05/09/19 05/10/19 05/10/19 05:27 05:43 05:43 WBC 1.7 L D RBC Hgb Hct MCV MCH MCHC RDW Plt Count Seg Neutrophils % Retic Count (auto) 0.65 L Sodium Potassium Chloride Carbon Dioxide Anion Gap BUN Creatinine Est GFR ( Amer) Glucose Calcium Phosphorus Magnesium Iron 40.6 TIBC 109 L % Saturation 37 Ferritin 720.00 H Albumin Vitamin B12 399.0 Folate 2.67 L 05/10/19 05/11/19 05/11/19 11:49 04:28 04:28 WBC 3.3 L 3.8 L RBC 2.86 L 2.90 L Hgb 9.2 L 9.2 L Hct 26.0 L 26.3 L MCV 91 91 MCH 32.1 31.7 MCHC 35.3 34.9 RDW 13.8 14.0 Plt Count 180 162 Seg Neutrophils % 59.8 Not Reportable Retic Count (auto) Sodium 131.1 L Potassium 3.2 L Chloride 100 Carbon Dioxide 26 Anion Gap 5 BUN 5 L Creatinine 0.37 L Est GFR ( Amer) > 60 Glucose 90 Calcium 7.1 L Phosphorus 1.6 L Magnesium 1.6 Iron TIBC % Saturation Ferritin Albumin 1.9 L Vitamin B12 Folate 05/05/19 14:40 NT-Pro-B Natriuret Pep 183 H Impressions: Acute Abdomen Series 05/05/19 17:05 IMPRESSION: Persistent dilated colon with mild small-bowel distention. KUB X-Ray 05/05/19 19:06 IMPRESSION: The NG tube is about 5 cm inside the stomach. Barium Enema 05/06/19 00:00 IMPRESSION: SUGGESTED MASS WITHIN THE MID SIGMOID COLON CAUSING NEAR COMPLETE OBSTRUCTION. A VERY SMALL AMOUNT CONTRAST DOES REACH THE DESCENDING COLON. RECTUM AND RECTOSIGMOID JUNCTION APPEARS NORMAL. MODERATE AIR AND FLUID-FILLED DILATATION OF THE REMAINDER OF THE COLON DUE TO OBSTRUCTION. Assessment & Plan - Diagnosis (1) Colonic mass Is this a current diagnosis for this admission?: Yes Plan: 2nd stricture, no malignancy noted. Will sign off (2) Leukopenia Qualifiers: Leukopenia type: neutropenia Neutropenia type: other Qualified Code(s): D70.8 - Other neutropenia Is this a current diagnosis for this admission?: Yes Plan: Resolved, 2nd to atbx and metabolic process. No further w/u needed. (3) Anemia Qualifiers: Anemia type: folate deficiency Folate deficiency anemia type: dietary Qualified Code(s): D52.0 - Dietary folate deficiency anemia Is this a current diagnosis for this admission?: Yes Plan: Folate def anemia, ferritin and b12 nml, start folic acid 1mg qd. She should cont this for the next 3m, thereafter, she should take a multivitamin w/folate. No further w/u needed. No f/u needed, can be follwed byPCP on d/c. Will sign off. - Time Time Spent with patient: 35 or more minutes - Inpatient Certification Based on my medical assessment, after consideration of the patient's comorbidities, presenting symptoms, or acuity I expect that the services needed warrant INPATIENT care.: Yes I certify that my determination is in accordance with my understanding of Medicare's requirements for reasonable and necessary INPATIENT services [42 CFR 412.3e].: Yes Medical Necessity: Risk of Complication if Not Cared For in Hospital
[2019-05-11] MEDS: FOLIC ACID 1 MG TABLET PO SCH (08:18)
[2019-05-11] MEDS: POTASSIUM CHLORIDE 10 MEQ TABLET.ER PO SCH (08:18)
[2019-05-11] MEDS: OXYCODONE HCL IR 5 MG TABLET PO PRN ×4 (08:18→21:26)
--- NOTE | 2019-05-11 09:14 | PDOC PROGRESS REPORT ---
Subjective Progress Note for:: 05/11/19 Subjective:: tolerating diet and colostomy functioning weel. However, has difficulty keeping appliance in place. Reason For Visit: COLON OBSTRUCTION,HYPONATREMIA,ANASARCA Physical Exam Vital Signs: Temp Pulse Resp BP Pulse Ox 97.4 F 110 H 19 118/89 H 100 05/11/19 07:51 05/11/19 07:51 05/11/19 07:51 05/11/19 07:51 05/11/19 07:51 Intake & Output 05/10/19 05/11/19 05/12/19 06:59 06:59 06:59 Intake Total 3829 2380 Output Total 1700 1200 Balance 2129 1180 Weight 95.6 kg 102.3 kg Exam: abdomen is soft. Colostomy appliance in place but appears to b falling off inferior aspect. Results Laboratory Results: 05/11/19 04:28 05/11/19 04:28 05/09/19 05/10/19 05/10/19 05:27 05:43 11:49 WBC 1.7 L D 3.3 L RBC 2.86 L Hgb 9.2 L Hct 26.0 L MCV 91 MCH 32.1 MCHC 35.3 RDW 13.8 Plt Count 180 Seg Neutrophils % 59.8 Sodium Potassium Chloride Carbon Dioxide Anion Gap BUN Creatinine Est GFR ( Amer) Glucose Calcium Phosphorus Magnesium Iron 40.6 TIBC 109 L % Saturation 37 Ferritin 720.00 H Albumin Vitamin B12 399.0 Folate 2.67 L 05/11/19 05/11/19 04:28 04:28 WBC 3.8 L RBC 2.90 L Hgb 9.2 L Hct 26.3 L MCV 91 MCH 31.7 MCHC 34.9 RDW 14.0 Plt Count 162 Seg Neutrophils % Not Reportable Sodium 131.1 L Potassium 3.2 L Chloride 100 Carbon Dioxide 26 Anion Gap 5 BUN 5 L Creatinine 0.37 L Est GFR ( Amer) > 60 Glucose 90 Calcium 7.1 L Phosphorus 1.6 L Magnesium 1.6 Iron TIBC % Saturation Ferritin Albumin 1.9 L Vitamin B12 Folate 05/05/19 14:40 NT-Pro-B Natriuret Pep 183 H Impressions: Acute Abdomen Series 05/05/19 17:05 IMPRESSION: Persistent dilated colon with mild small-bowel distention. KUB X-Ray 05/05/19 19:06 IMPRESSION: The NG tube is about 5 cm inside the stomach. Barium Enema 05/06/19 00:00 IMPRESSION: SUGGESTED MASS WITHIN THE MID SIGMOID COLON CAUSING NEAR COMPLETE OBSTRUCTION. A VERY SMALL AMOUNT CONTRAST DOES REACH THE DESCENDING COLON. RECTUM AND RECTOSIGMOID JUNCTION APPEARS NORMAL. MODERATE AIR AND FLUID-FILLED DILATATION OF THE REMAINDER OF THE COLON DUE TO OBSTRUCTION. Assessment & Plan - Time Critical Time spent with patient: 15-24 minutes - Plan Summary Plan Summary: Needs an ostomy nurse. Arrange OPD nurse follow up for colostomy care Follow up surgical clinic in 2 weeks for staple removal Pathology dhowed sigmoid colon stricture. No malignancy.Pt informed Will sign off
[2019-05-11] MEDS: ALBUMIN HUMAN 25 GM/100 ML RTUINJ IV SCH (09:55)
[2019-05-11] MEDS: PANTOPRAZOLE SODIUM 40 MG VIAL IV SCH (09:56)
[2019-05-11] MEDS: FUROSEMIDE INJ/PF 20 MG/2 ML SDV IV SCH (09:57)
--- NOTE | 2019-05-11 15:04 | PDOC PROGRESS REPORT ---
Subjective Progress Note for:: 05/11/19 Subjective:: 05/11/2019. No acute events overnight. Patient comfortably resting in bed in no apparent distress. Tolerating diet. Denies any abdominal pain. Ostomy functioning well. Still complaining of bilateral lower extremity edema and weakness. Reason For Visit: COLON OBSTRUCTION,HYPONATREMIA,ANASARCA Physical Exam Vital Signs: Temp Pulse Resp BP Pulse Ox 97.4 F 116 H 18 96/64 L 99 05/11/19 11:07 05/11/19 11:07 05/11/19 11:07 05/11/19 11:07 05/11/19 11:07 Intake & Output 05/10/19 05/11/19 05/12/19 06:59 06:59 06:59 Intake Total 3829 2380 200 Output Total 1700 1200 Balance 2129 1180 200 Weight 95.6 kg 102.3 kg General appearance: PRESENT: morbidly obese Head exam: PRESENT: atraumatic, normocephalic Respiratory exam: PRESENT: clear to auscultation young. ABSENT: rales, rhonchi, wheezes Cardiovascular exam: PRESENT: RRR. ABSENT: diastolic murmur, rubs, systolic murmur GI/Abdominal exam: PRESENT: normal bowel sounds, soft, other - Ostomy in place. Stoma clean. Patent.. ABSENT: distended, guarding, mass, organolmegaly, rebound, tenderness Extremities exam: PRESENT: +2 edema Neurological exam: PRESENT: alert, awake, oriented to person, oriented to place, oriented to time, oriented to situation, CN II-XII grossly intact. ABSENT: motor sensory deficit Results Laboratory Results: 05/11/19 04:28 05/11/19 04:28 05/11/19 05/11/19 04:28 04:28 WBC 3.8 L RBC 2.90 L Hgb 9.2 L Hct 26.3 L MCV 91 MCH 31.7 MCHC 34.9 RDW 14.0 Plt Count 162 Seg Neutrophils % Not Reportable Sodium 131.1 L Potassium 3.2 L Chloride 100 Carbon Dioxide 26 Anion Gap 5 BUN 5 L Creatinine 0.37 L Est GFR ( Amer) > 60 Glucose 90 Calcium 7.1 L Phosphorus 1.6 L Magnesium 1.6 Albumin 1.9 L 05/05/19 14:40 NT-Pro-B Natriuret Pep 183 H Impressions: Acute Abdomen Series 05/05/19 17:05 IMPRESSION: Persistent dilated colon with mild small-bowel distention. KUB X-Ray 05/05/19 19:06 IMPRESSION: The NG tube is about 5 cm inside the stomach. Barium Enema 05/06/19 00:00 IMPRESSION: SUGGESTED MASS WITHIN THE MID SIGMOID COLON CAUSING NEAR COMPLETE OBSTRUCTION. A VERY SMALL AMOUNT CONTRAST DOES REACH THE DESCENDING COLON. RECTUM AND RECTOSIGMOID JUNCTION APPEARS NORMAL. MODERATE AIR AND FLUID-FILLED DILATATION OF THE REMAINDER OF THE COLON DUE TO OBSTRUCTION. Assessment and Plan - Diagnosis (1) Bowel obstruction Is this a current diagnosis for this admission?: Yes Plan: Day 5 status post exploratory laparotomy, sigmoid colectomy and diverting colostomy. Tissue biopsy negative for any malignancy. Ostomy patent. Tolerating feeds. Surgery on board. Recommendations noted. (2) Obesity Qualifiers: Body mass index: BMI 40.0-44.9 Is this a current diagnosis for this admission?: Yes Plan: TSH WNL. Diet and lifestyle modification recommended. (3) Anasarca Is this a current diagnosis for this admission?: Yes Plan: Improving. Denies any history of CAD, cirrhosis or CKD. proBNP WNL. Kidney function WNL. Likely due to poor venous return and low albumin state. CT abdomen positive for steatohepatitis but denies any history of cirrhosis. Bilateral lower extremity diffuse 2+ pitting edema. Continue bilateral lower extremity elevation and compression stocking. We will obtain venous Doppler to rule out any DVT. (4) Hyponatremia Is this a current diagnosis for this admission?: Yes Plan: Improving. 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 Patient drinks about 4 to 5 L of water daily, does not like flavored drinks or sodas. We will start on fluid restriction, BMP tomorrow. (5) Steatohepatitis Is this a current diagnosis for this admission?: Yes (6) UTI (urinary tract infection) Qualifiers: Urinary tract infection type: acute cystitis Is this a current diagnosis for this admission?: Yes Plan: Due to E. coli. Pansensitive. Completed a course of antibiotics. Asymptomatic. (7) Hypokalemia Is this a current diagnosis for this admission?: Yes Plan: Likely due to GI losses. No acute EKG changes. Continue supplemental potassium. Potassium level tomorrow.
[2019-05-11] MEDS ORDERED: ALBUMIN HUMAN 12.5 GM/50 ML RTUINJ IV SCH (16:00)
--- NOTE | 2019-05-11 17:01 | RADIOLOGY REPORT (SQ) ---
EXAM DESCRIPTION: VENOUS BILATERAL LOWER COMPLETED DATE/TIME: 05/11/2019 4:49 pm REASON FOR STUDY: BLE SWELLING/PAIN COMPARISON: None. TECHNIQUE: Dynamic and static jasso scale and color images acquired of both lower extremity venous sy stems. Selected spectral images acquired with additional compression and augmentation maneuvers. Imag es stored on PACS. LIMITATIONS: Limited visualization of the distal femoral vein of both legs and some of the calf vein s due to soft tissue swelling. FINDINGS: RIGHT LEG COMMON FEMORAL AND FEMORAL: Normal phasicity, compression and augmentation. No visualized echogenic m aterial on jasso scale. No defects on color images. POPLITEAL: Normal compression and augmentation. No visualized echogenic material on jasso scale. No de fects on color images. CALF VESSELS: Normal compression and augmentation. No visualized echogenic material on jasso scale. No defects on color image. GSV AND SSV: Normal compression. No visualized echogenic material on jasso scale. No defects on color images. ANY DEEP VENOUS INSUFFICIENCY: No. ANY EVIDENCE OF POPLITEAL CYST: No. OTHER: No other significant finding. LEFT LEG COMMON FEMORAL AND FEMORAL: Normal phasicity, compression and augmentation. No visualized echogenic m aterial on jasso scale. No defects on color images. POPLITEAL: Normal compression and augmentation. No visualized echogenic material on jasso scale. No de fects on color images. CALF VESSELS: Normal compression and augmentation. No visualized echogenic material on jasso scale. No defects on color images. GSV AND SSV: Normal compression. No visualized echogenic material on jasso scale. No defects on color images. ANY DEEP VENOUS INSUFFICIENCY: No. ANY EVIDENCE POPLITEAL CYST: No. OTHER: No other significant finding. IMPRESSION: LIMITED STUDY. NO EVIDENCE DVT OR SVT IN EITHER LEG. TECHNICAL DOCUMENTATION: JOB ID: [id number] 2010 [employer]- All Rights Reserved Reading location - IP/workstation name: [email or web address]
[2019-05-11] MEDS ORDERED: FUROSEMIDE INJ/PF 20 MG/2 ML SDV IV SCH (18:00)
[2019-05-11] MEDS ORDERED: POTASSIUM CHLORIDE 10 MEQ TABLET.ER PO SCH (18:00)
[2019-05-11] MEDS: SERTRALINE HCL 50 MG TABLET PO SCH (21:27)
[2019-05-12] MEDS: OXYCODONE HCL IR 5 MG TABLET PO PRN ×4 (03:08→21:51)
[2019-05-12] MEDS ORDERED: CEFAZOLIN 1 GM/D5W RTU 1 GM/50 ML RTUPB IV ONE (05:39)
[2019-05-12] MEDS: CEFAZOLIN 1 GM/D5W RTU 1 GM/50 ML RTUPB IV SCH ×4 (05:52→23:08)
[2019-05-12 07:29] LABS: ALBUMIN 2.4 g/dL (3.5-5.0); ANION GAP 11 (5-19); BLOOD UREA NITROGEN 6 mg/dL (7-20); CALCIUM 7.5 mg/dL (8.4-10.2); CARBON DIOXIDE 25 mmol/L (22-30); CHLORIDE 94 mmol/L (98-107); GLUCOSE 88 mg/dL (75-110); PHOSPHORUS 1.8 mg/dL (2.5-4.5); POTASSIUM 3.2 mmol/L (3.6-5.0)
[2019-05-12 08:33] LABS: ABSOLUTE MONOCYTES (AUTO) 1.2 10^3/uL (0.1-1.4); ABSOLUTE NEUT (AUTO) 4.3 10^3/uL (1.7-8.2); BASOPHILS % (AUTO) 0.2 % (0-2); EOSINOPHILS % (AUTO) 0.3 % (0-6); HEMATOCRIT 32.1 % (36.0-47.0); MEAN CORPUSCULAR HEMOGLOBIN 31.1 pg (27.0-33.4); MEAN CORPUSCULAR HGB CONC 34.4 g/dL (32.0-36.0); MEAN CORPUSCULAR VOLUME 91 fl (80-97); MONOCYTES % (AUTO) 13.7 % (3-13); PLATELET COUNT 181 10^3/uL (150-450); RED BLOOD COUNT 3.54 10^6/uL (3.72-5.28); RED CELL DISTRIBUTION WIDTH 14.3 % (11.5-14.0); SEGMENTED NEUTROPHILS % (AUTO) 50.8 % (42-78); TOTAL CELLS COUNTED % (AUTO) 100 %
[2019-05-12 08:35] LABS: WHITE BLOOD COUNT 8.5 10^3/uL (4.0-10.5)
[2019-05-12] MEDS ORDERED: MAGNESIUM OXIDE 400 MG TABLET PO SCH (10:00)
[2019-05-12] MEDS ORDERED: FUROSEMIDE INJ/PF 20 MG/2 ML SDV IV SCH (10:00)
[2019-05-12] MEDS ORDERED: POTASSIUM CHLORIDE 10 MEQ TABLET.ER PO SCH (10:00)
[2019-05-12] MEDS: FOLIC ACID 1 MG TABLET PO SCH (10:11)
[2019-05-12] MEDS: POTASSIUM CHLORIDE 10 MEQ TABLET.ER PO SCH ×2 (10:11→17:44)
[2019-05-12] MEDS: PANTOPRAZOLE SODIUM 40 MG VIAL IV SCH (10:11)
[2019-05-12] MEDS: FUROSEMIDE INJ/PF 40 MG/4 ML SDV IV SCH ×2 (10:11→17:44)
[2019-05-12] MEDS: ALBUMIN HUMAN 25 GM/100 ML RTUINJ IV SCH (10:23)
--- NOTE | 2019-05-12 13:19 | PDOC PROGRESS REPORT ---
Subjective Progress Note for:: 05/12/19 Subjective:: 05/11/2019. No acute events overnight. Patient comfortably resting in bed in no apparent distress. Tolerating diet. Denies any abdominal pain. Ostomy functioning well. Still complaining of bilateral lower extremity edema and weakness. 05/12/2019. No acute events overnight. Patient was very upset about the amount of fluid and type of food that she had. Her last 24 hours otherwise denies any fever, chills, nausea, vomiting, diarrhea, on or any urinary symptoms. Ostomy site is patent. Patient reporting adequate ostomy output. Bilateral lower extremity swelling are improving, patient is stating that she is now able to move her bilateral lower extremity compared to yesterday. Still not able to ambulate independently. Reason For Visit: COLON OBSTRUCTION,HYPONATREMIA,ANASARCA Physical Exam Vital Signs: Temp Pulse Resp BP Pulse Ox 97.6 F 115 H 18 110/74 100 05/12/19 12:03 05/12/19 12:03 05/12/19 12:03 05/12/19 12:03 05/12/19 12:03 Intake & Output 05/11/19 05/12/19 05/13/19 06:59 06:59 06:59 Intake Total 2380 590 150 Output Total 1200 1790 1350 Balance 1180 -1200 -1200 Weight 102.3 kg 99.1 kg General appearance: PRESENT: no acute distress, well-developed, well-nourished Head exam: PRESENT: atraumatic, normocephalic Respiratory exam: PRESENT: clear to auscultation young. ABSENT: rales, rhonchi, wheezes Cardiovascular exam: PRESENT: RRR. ABSENT: diastolic murmur, rubs, systolic murmur GI/Abdominal exam: PRESENT: normal bowel sounds, soft, other - ostomy patent. ABSENT: distended, guarding, mass, organolmegaly, rebound, tenderness Extremities exam: PRESENT: +2 edema Neurological exam: PRESENT: alert, awake, oriented to person, oriented to place, oriented to time, oriented to situation, CN II-XII grossly intact. ABSENT: motor sensory deficit Results Laboratory Results: 05/12/19 06:17 05/12/19 06:17 05/12/19 05/12/19 06:17 06:17 WBC 8.5 D RBC 3.54 L Hgb 11.0 L Hct 32.1 L MCV 91 MCH 31.1 MCHC 34.4 RDW 14.3 H Plt Count 181 Seg Neutrophils % 50.8 Sodium 130.4 L Potassium 3.2 L Chloride 94 L Carbon Dioxide 25 Anion Gap 11 BUN 6 L Creatinine 0.29 L Est GFR ( Amer) > 60 Glucose 88 Calcium 7.5 L Phosphorus 1.8 L Magnesium 1.3 L Albumin 2.4 L 05/05/19 14:40 NT-Pro-B Natriuret Pep 183 H Impressions: Acute Abdomen Series 05/05/19 17:05 IMPRESSION: Persistent dilated colon with mild small-bowel distention. KUB X-Ray 05/05/19 19:06 IMPRESSION: The NG tube is about 5 cm inside the stomach. Barium Enema 05/06/19 00:00 IMPRESSION: SUGGESTED MASS WITHIN THE MID SIGMOID COLON CAUSING NEAR COMPLETE OBSTRUCTION. A VERY SMALL AMOUNT CONTRAST DOES REACH THE DESCENDING COLON. RECTUM AND RECTOSIGMOID JUNCTION APPEARS NORMAL. MODERATE AIR AND FLUID-FILLED DILATATION OF THE REMAINDER OF THE COLON DUE TO OBSTRUCTION. Venous Doppler Study 05/11/19 00:00 IMPRESSION: LIMITED STUDY. NO EVIDENCE DVT OR SVT IN EITHER LEG. Assessment and Plan - Diagnosis (1) Bowel obstruction Is this a current diagnosis for this admission?: Yes Plan: Day 5 status post exploratory laparotomy, sigmoid colectomy and diverting co lostomy. Tissue biopsy negative for any malignancy. Ostomy patent. Tolerating feeds. Surgery on board. Recommendations noted. (2) Obesity Qualifiers: Body mass index: BMI 40.0-44.9 Is this a current diagnosis for this admission?: Yes Plan: TSH WNL. Diet and lifestyle modification recommended. (3) Anasarca Is this a current diagnosis for this admission?: Yes Plan: Improving. Denies any history of CAD, cirrhosis or CKD. proBNP WNL. Kidney function WNL. BLE Venous Doppler negative for DVT Likely due to poor venous return and low albumin state. CT abdomen positive for steatohepatitis but denies any history of cirrhosis. Bilateral lower extremity diffuse 2+ pitting edema. Continue bilateral lower extremity elevation and compression stocking. (4) Hyponatremia Is this a current diagnosis for this admission?: Yes Plan: Improving. 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 Patient drinks about 4 to 5 L of water daily, does not like flavored drinks or sodas. We will start on fluid restriction, BMP tomorrow. (5) Steatohepatitis Is this a current diagnosis for this admission?: Yes Plan: Patient endorses history of heavy alcohol abuse in the past. Has been abstinent for several years. Denies any history of cirrhosis. Likely due alcoholism or NAFLD/autoimmune hepatitis. Patient has a stigmata of liver cirrhosis. CT and abdominal ultrasound was positive for hepatic steatosis. Patient is thrombocytopenic, low albumin state and anemia which could all be due to underlying undiagnosed hepatic cirrhosis. We will obtain hepatitis panel, serum copper, alpha-1 antitrypsin level, antimitochondrial antibody, anti-smooth muscle antibody, antinuclear antibody. Unfortunately no GI consult available until next Friday. Outpatient PCP and GI follow-up. (6) UTI (urinary tract infection) Qualifiers: Urinary tract infection type: acute cystitis Is this a current diagnosis for this admission?: Yes Plan: Due to E. coli. Pansensitive. Completed a course of antibiotics. Asy mptomatic. (7) Hypokalemia Is this a current diagnosis for this admission?: Yes Plan: Likely due to GI losses. No acute EKG changes. Continue supplemental potassium. Potassium level tomorrow.
[2019-05-12] MEDS: SERTRALINE HCL 50 MG TABLET PO SCH (21:47)
[2019-05-13] MEDS ORDERED: NORMAL SALINE 500 ML IV ONE (04:30)
[2019-05-13] MEDS: CEFAZOLIN 1 GM/D5W RTU 1 GM/50 ML RTUPB IV SCH (05:45)
[2019-05-13 06:59] LABS: HEMATOCRIT 20.8 % (36.0-47.0); MEAN CORPUSCULAR HEMOGLOBIN 32.1 pg (27.0-33.4); MEAN CORPUSCULAR VOLUME 89 fl (80-97); PLATELET COUNT 119 10^3/uL (150-450); RED BLOOD COUNT 2.34 10^6/uL (3.72-5.28); RED CELL DISTRIBUTION WIDTH 13.5 % (11.5-14.0); WHITE BLOOD COUNT 4.1 10^3/uL (4.0-10.5)
[2019-05-13 07:20] LABS: HEMOGLOBIN 7.5 g/dL (12.0-15.5)
[2019-05-13 07:29] LABS: ALBUMIN 1.9 g/dL (3.5-5.0); ALKALINE PHOSPHATASE 66 U/L (38-126); ASPARTATE AMINO TRANSFERASE 18 U/L (14-36); BILIRUBIN,DIRECT 0.2 mg/dL (0.0-0.4); BILIRUBIN,TOTAL 0.6 mg/dL (0.2-1.3); BLOOD UREA NITROGEN 5 mg/dL (7-20); CALCIUM 7.1 mg/dL (8.4-10.2); CARBON DIOXIDE 32 mmol/L (22-30); CHLORIDE 94 mmol/L (98-107); GLUCOSE 93 mg/dL (75-110); POTASSIUM 3.5 mmol/L (3.6-5.0)
[2019-05-13 07:39] LABS: ANION GAP 4 (5-19)
--- NOTE | 2019-05-13 09:17 | RADIOLOGY REPORT (SQ) ---
EXAM DESCRIPTION: U/S ABDOMEN LIMITED W/O DOP COMPLETED DATE/TIME: 05/13/2019 2:08 am REASON FOR STUDY: r/o cirrhosis COMPARISON: CT of the abdomen and pelvis from 05/03/2019. TECHNIQUE: Dynamic and static grayscale images acquired of the abdomen and recorded on PACS. Additio nal selected color Doppler and spectral images recorded. LIMITATIONS: None. FINDINGS: PANCREAS: The visualized portions of the pancreas appear normal. LIVER: The echogenicity of the hepatic parenchyma is increased relative to that of the adjacent renal parenchyma. There are several hepatic cyst that measure up to 1.8 x 1.9 x 1.4 cm. LIVER VASCULATURE: Hepatopetal directional flow within the portal veins. GALLBLADDER: The gallbladder wall measures 1.6 mm in diameter. There are shadowing echogenic calculi within the gallbladder lumen. There is no pericholecystic fluid. ULTRASOUND-DETECTED LIRA'S SIGN: Negative. INTRAHEPATIC DUCTS AND COMMON DUCT: The common bile duct measures 5.8 mm in diameter. The intrahepat ic bile ducts are normal in caliber. INFERIOR VENA CAVA: Patent. AORTA: No aneurysm. RIGHT KIDNEY: The right kidney measures 11.8 cm in length. There is no hydronephrosis. PERITONEAL AND RIGHT PLEURAL SPACE: No ascites or effusions. OTHER: No other findings. IMPRESSION: 1. Increased echogenicity of hepatic parenchyma suggestive of hepatic steatosis. 2. Cholelithiasis without other associated ancillary findings to indicate an acute cholecystitis. TECHNICAL DOCUMENTATION: JOB ID: [id number] 2010 [employer]- All Rights Reserved Reading location - IP/workstation name: [email or web address]
[2019-05-13] MEDS ORDERED: MAGNESIUM SULFATE/D5W 1 GM/100 ML RTUPB IV ONE (09:30)
[2019-05-13] MEDS: POTASSIUM CHLORIDE 10 MEQ TABLET.ER PO SCH ×2 (09:36→17:23)
[2019-05-13] MEDS: FUROSEMIDE INJ/PF 40 MG/4 ML SDV IV SCH ×2 (09:37→17:23)
[2019-05-13] MEDS: SODIUM BICARBONATE 650 MG TABLET PO SCH ×2 (09:37→22:09)
[2019-05-13] MEDS: FOLIC ACID 1 MG TABLET PO SCH (09:37)
[2019-05-13] MEDS: PANTOPRAZOLE SODIUM 40 MG TABLET.DR PO SCH (09:41)
[2019-05-13] MEDS: OXYCODONE HCL IR 5 MG TABLET PO PRN ×3 (09:41→22:09)
[2019-05-13] MEDS ORDERED: MAGNESIUM OXIDE 400 MG TABLET PO SCH (10:00)
[2019-05-13] MEDS ORDERED: PANTOPRAZOLE SODIUM 40 MG TABLET.DR PO SCH (10:00)
--- NOTE | 2019-05-13 11:17 | PDOC PROGRESS REPORT ---
Subjective Progress Note for:: 05/13/19 Subjective:: 05/11/2019. No acute events overnight. Patient comfortably resting in bed in no apparent distress. Tolerating diet. Denies any abdominal pain. Ostomy functioning well. Still complaining of bilateral lower extremity edema and weakness. 05/12/2019. No acute events overnight. Patient was very upset about the amount of fluid and type of food that she had. Her last 24 hours otherwise denies any fever, chills, nausea, vomiting, diarrhea, on or any urinary symptoms. Ostomy site is patent. Patient reporting adequate ostomy output. Bilateral lower extremity swelling are improving, patient is stating that she is now able to move her bilateral lower extremity compared to yesterday. Still not able to ambulate independently. 05/13/2019. Patient was noted to have a drop in her hemoglobin from 11-7.5, hemoglobin was repeated and again it was found to be low. It was planned by berry planter to give 2 PRBC transfusions however patient is very upset about trans fusion and does not want to receive any transfusion as she does not believe that she is bleeding, as she does not see any obvious source of bleeding, she is also saying that she is not symptomatic would like to hold transfusion until abdominal ultrasound results are back. Otherwise patient is p.o. tolerant, denies any fever, chills, nausea, vomiting, diarrhea, constipation or any urinary symptoms. Lower extremity edema or improving and patient is able to ambulate well but better than yesterday. Reason For Visit: COLON OBSTRUCTION,HYPONATREMIA,ANASARCA Physical Exam Vital Signs: Temp Pulse Resp BP Pulse Ox 97.8 F 91 18 112/75 99 05/13/19 08:40 05/13/19 08:40 05/13/19 08:40 05/13/19 08:40 05/13/19 08:40 Intake & Output 05/12/19 05/13/19 05/14/19 06:59 06:59 06:59 Intake Total 590 1494 Output Total 1790 5500 Balance -1200 -4006 Weight 99.1 kg 98.2 kg General appearance: PRESENT: no acute distress, well-developed, well-nourished Head exam: PRESENT: atraumatic, normocephalic Respiratory exam: PRESENT: clear to auscultation young. ABSENT: rales, rhonchi, wheezes Cardiovascular exam: PRESENT: RRR. ABSENT: diastolic murmur, rubs, systolic murmur GI/Abdominal exam: PRESENT: normal bowel sounds, soft, other - ostomy is intact, fecal material noted, no sign of bleeding.. ABSENT: distended, guarding, mass, organolmegaly, rebound, tenderness Extremities exam: PRESENT: +2 edema Neurological exam: PRESENT: alert, awake, oriented to person, oriented to place, oriented to time, oriented to situation, CN II-XII grossly intact. ABSENT: motor sensory deficit Results Laboratory Results: 05/13/19 06:50 05/13/19 07:04 05/13/19 05/13/19 05/13/19 05:27 05:27 06:50 WBC Cancelled 4.1 RBC Cancelled 2.34 L Hgb Cancelled 7.5 L D Hct Cancelled 20.8 L MCV Cancelled 89 MCH Cancelled 32.1 MCHC Cancelled 36.0 RDW Cancelled 13.5 Plt Count Cancelled 119 L Sodium Cancelled Potassium Cancelled Chloride Cancelled Carbon Dioxide Cancelled Anion Gap Cancelled BUN Cancelled Creatinine Cancelled Est GFR ( Amer) Cancelled Est GFR (Non-Af Amer) Cancelled Glucose Cancelled Calcium Cancelled Magnesium Cancelled Total Bilirubin Cancelled AST Cancelled Alkaline Phosphatase Cancelled Total Protein Cancelled Albumin Cancelled Stool Occult Blood 05/13/19 05/13/19 07:04 08:00 WBC RBC Hgb Hct MCV MCH MCHC RDW Plt Count Sodium 129.5 L Potassium 3.5 L Chloride 94 L Carbon Dioxide 32 H Anion Gap 4 L BUN 5 L Creatinine 0.25 L Est GFR ( Amer) > 60 Est GFR (Non-Af Amer) Glucose 93 Calcium 7.1 L Magnesium 1.2 L* Total Bilirubin 0.6 AST 18 Alkaline Phosphatase 66 Total Protein 4.0 L Albumin 1.9 L Stool Occult Blood NEGATIVE 05/05/19 14:40 NT-Pro-B Natriuret Pep 183 H Impressions: Acute Abdomen Series 05/05/19 17:05 IMPRESSION: Persistent dilated colon with mild small-bowel distention. KUB X-Ray 05/05/19 19:06 IMPRESSION: The NG tube is about 5 cm inside the stomach. Barium Enema 05/06/19 00:00 IMPRESSION: SUGGESTED MASS WITHIN THE MID SIGMOID COLON CAUSING NEAR COMPLETE OBSTRUCTION. A VERY SMALL AMOUNT CONTRAST DOES REACH THE DESCENDING COLON. RECTUM AND RECTOSIGMOID JUNCTION APPEARS NORMAL. MODERATE AIR AND FLUID-FILLED DILATATION OF THE REMAINDER OF THE COLON DUE TO OBSTRUCTION. Venous Doppler Study 05/11/19 00:00 IMPRESSION: LIMITED STUDY. NO EVIDENCE DVT OR SVT IN EITHER LEG. Abdomen Ultrasound 05/13/19 00:00 IMPRESSION: 1. Increased echogenicity of hepatic parenchyma suggestive of hepatic steatosis. 2. Cholelithiasis without other associated ancillary findings to indicate an acute cholecystitis. Assessment and Plan - Diagnosis (1) Bowel obstruction Is this a current diagnosis for this admission?: Yes Plan: Day 6 status post exploratory laparotomy, sigmoid colectomy and diverting colostomy. Tissue biopsy negative for any malignancy. Ostomy patent. Tolerating feeds. Surgery on board. Recommendations noted. (2) Obesity Qualifiers: Body mass index: BMI 40.0-44.9 Is this a current diagnosis for this admission?: Yes Plan: TSH WNL. Diet and lifestyle modification recommended. (3) Anasarca Is this a current diagnosis for this admission?: Yes Plan: Improving. Denies any history of CAD, cirrhosis or CKD. proBNP WNL. Kidney function WNL. BLE Venous Doppler negative for DVT Likely due to poor venous return and low albumin state and undiagnosed cirrhosis. CT abdomen positive for steatohepatitis but denies any history of cirrhosis. Abdominal ultrasound is positive for hepatic steatosis. Bilateral lower extremity diffuse 2+ pitting edema. Continue bilateral lower extremity elevation and compression stocking. (4) Hyponatremia Is this a current diagnosis for this admission?: Yes Plan: Improving. 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 Patient drinks about 4 to 5 L of water daily, does not like flavored drinks or sodas. Continue fluid restriction, sodium bicarbonate p.o, BMP tomorrow. (5) Steatohepatitis Is this a current diagnosis for this admission?: Yes Plan: Patient endorses history of heavy alcohol abuse in the past. Has been abstinent for several years. Denies any history of cirrhosis. Likely due alcoholism or NAFLD/autoimmune hepatitis. Patient has a stigmata of liver cirrhosis. CT and abdominal ultrasound was positive for hepatic steatosis. Patient is thrombocytopenic, low albumin state and anemia which could all be due to underlying undiagnosed hepatic cirrhosis. We will obtain hepatitis panel, serum copper, alpha-1 antitrypsin level, antimitochondrial antibody, anti-smooth muscle antibody, antinuclear antibody. Unfortunately no GI consult available until next Friday. Outpatient PCP and GI follow-up. (6) UTI (urinary tract infection) Qualifiers: Urinary tract infection type: acute cystitis Is this a current diagnosis for this admission?: Yes Plan: Due to E. coli. Pansensitive. Completed a course of antibiotics. Asymptomatic. (7) Hypokalemia Is this a current diagnosis for this admission?: Yes Plan: Likely due to GI losses. No acute EKG changes. Continue supplemental potassium. Potassium level tomorrow. (8) Hypomagnesemia Is this a current diagnosis for this admission?: Yes Plan: Most likely due to GI losses. Continue daily replacement. Magnesium level tomorrow. (9) Anemia Qualifiers: Anemia type: other cause Other causes of anemia: acute posthemorrhagic Qualified Code(s): D62 - Acute posthemorrhagic anemia Is this a current diagnosis for this admission?: Yes Plan: Multifactorial. Combination of posthemorrhagic anemia, folic acid deficiency liver cirrhosis and anemia of chronic disease. Hemoglobin on admission 14.9. Folic acid 2.67. B12 399. Iron 40.6. Hemoglobin has dropped to 7.5 not no apparent sign of bleeding. Abdominal ultrasound no acute findings. Patient refusing PRBC transfusion stating that "she does not want anybody else with blood in her body." Monitor H&H, supportive transfusions. If acute drop in hemoglobin will do abdom inal CT to rule out any occult sign of bleeding as patient had recent abdominal surgery.
[2019-05-13] MEDS: FERROUS SULFATE 325 MG TABLET PO SCH (12:35)
[2019-05-13 18:25] LABS: HEMATOCRIT 24.6 % (36.0-47.0); HEMOGLOBIN 8.7 g/dL (12.0-15.5); MEAN CORPUSCULAR HEMOGLOBIN 31.7 pg (27.0-33.4); MEAN CORPUSCULAR HGB CONC 35.2 g/dL (32.0-36.0); MEAN CORPUSCULAR VOLUME 90 fl (80-97); PLATELET COUNT 170 10^3/uL (150-450); RED BLOOD COUNT 2.73 10^6/uL (3.72-5.28); RED CELL DISTRIBUTION WIDTH 13.8 % (11.5-14.0); WHITE BLOOD COUNT 7.2 10^3/uL (4.0-10.5)
[2019-05-13] MEDS: SERTRALINE HCL 50 MG TABLET PO SCH (22:09)
[2019-05-14] MEDS: PANTOPRAZOLE SODIUM 40 MG TABLET.DR PO SCH (06:01)
[2019-05-14] MEDS: OXYCODONE HCL IR 5 MG TABLET PO PRN ×3 (06:01→22:00)
[2019-05-14 06:42] LABS: HEMATOCRIT 20.3 % (36.0-47.0); MEAN CORPUSCULAR HGB CONC 35.8 g/dL (32.0-36.0); MEAN CORPUSCULAR VOLUME 89 fl (80-97); PLATELET COUNT 130 10^3/uL (150-450); RED BLOOD COUNT 2.27 10^6/uL (3.72-5.28); RED CELL DISTRIBUTION WIDTH 13.4 % (11.5-14.0); WHITE BLOOD COUNT 4.6 10^3/uL (4.0-10.5)
[2019-05-14 06:59] LABS: ALKALINE PHOSPHATASE 62 U/L (38-126); ASPARTATE AMINO TRANSFERASE 21 U/L (14-36); BILIRUBIN,DIRECT 0.2 mg/dL (0.0-0.4); BILIRUBIN,TOTAL 0.6 mg/dL (0.2-1.3); BLOOD UREA NITROGEN 6 mg/dL (7-20); CALCIUM 7.3 mg/dL (8.4-10.2); GLUCOSE 86 mg/dL (75-110); POTASSIUM 3.9 mmol/L (3.6-5.0); TOTAL PROTEIN 4.3 g/dL (6.3-8.2)
[2019-05-14 07:00] LABS: HEMOGLOBIN 7.3 g/dL (12.0-15.5)
[2019-05-14 07:04] LABS: CARBON DIOXIDE 33 mmol/L (22-30); CHLORIDE 91 mmol/L (98-107)
[2019-05-14 07:07] LABS: ANION GAP 3 (5-19)
[2019-05-14] MEDS: PROMETHAZINE HCL INJ 25 MG/1 ML VIAL IV PRN (09:35)
[2019-05-14] MEDS: POTASSIUM CHLORIDE 10 MEQ TABLET.ER PO SCH ×2 (10:21→17:41)
[2019-05-14] MEDS: SODIUM BICARBONATE 650 MG TABLET PO SCH ×2 (10:21→22:00)
[2019-05-14] MEDS: MAGNESIUM OXIDE 400 MG TABLET PO SCH ×2 (10:22→17:41)
[2019-05-14] MEDS: FOLIC ACID 1 MG TABLET PO SCH (10:22)
[2019-05-14] MEDS: FERROUS SULFATE 325 MG TABLET PO SCH (10:22)
[2019-05-14] MEDS ORDERED: ACETAMINOPHEN 325 MG TABLET ONE (10:27)
[2019-05-14 11:37] LABS: HEPATITS B SURFACE ANTIGEN Negative (Negative)
[2019-05-14 12:30] LABS: HEPATITIS C VIRUS ANTIBODY 0.1 s/co ratio (0.0-0.9)
--- NOTE | 2019-05-14 17:17 | PDOC PROGRESS REPORT ---
Subjective Progress Note for:: 05/14/19 Subjective:: 05/11/2019. No acute events overnight. Patient comfortably resting in bed in no apparent distress. Tolerating diet. Denies any abdominal pain. Ostomy functioning well. Still complaining of bilateral lower extremity edema and weakness. 05/12/2019. No acute events overnight. Patient was very upset about the amount of fluid and type of food that she had. Her last 24 hours otherwise denies any fever, chills, nausea, vomiting, diarrhea, on or any urinary symptoms. Ostomy site is patent. Patient reporting adequate ostomy output. Bilateral lower extremity swelling are improving, patient is stating that she is now able to move her bilateral lower extremity compared to yesterday. Still not able to ambulate independently. 05/13/2019. Patient was noted to have a drop in her hemoglobin from 11-7.5, hemoglobin was repeated and again it was found to be low. It was planned by elderly sitter to give 2 PRBC transfusions however patient is very upset about trans fusion and does not want to receive any transfusion as she does not believe that she is bleeding, as she does not see any obvious source of bleeding, she is also saying that she is not symptomatic would like to hold transfusion until abdominal ultrasound results are back. Otherwise patient is p.o. tolerant, denies any fever, chills, nausea, vomiting, diarrhea, constipation or any urinary symptoms. Lower extremity edema or improving and patient is able to ambulate well but better than yesterday. 05/14/2019. No acute events overnight. Patient is complaining of generalized weakness otherwise p.o. tolerant and having adequate output from her ostomy, denies any fever, chills, nausea, vomiting, diarrhea, constipation or any urinary symptoms. Lower extremity edema improving. Was able to walk in the hallways yesterday. Had an extensive conversation regarding her hepatic steatosis patient does mention that she used to be a heavy alcoholic but she has stopped for several years. Reason For Visit: COLON OBSTRUCTION,HYPONATREMIA,ANASARCA Physical Exam Vital Signs: Temp Pulse Resp BP Pulse Ox 97.7 F 92 16 120/68 100 05/14/19 16:23 05/14/19 16:23 05/14/19 16:23 05/14/19 16:23 05/14/19 16:23 Intake & Output 05/13/19 05/14/19 05/15/19 06:59 06:59 06:59 Intake Total 1494 1789 800 Output Total 5500 2900 Balance -4006 -1111 800 Weight 98.2 kg 94.4 kg General appearance: PRESENT: no acute distress, well-developed, well-nourished Head exam: PRESENT: atraumatic, normocephalic Respiratory exam: PRESENT: clear to auscultation young. ABSENT: rales, rhonchi, wheezes Cardiovascular exam: PRESENT: RRR. ABSENT: diastolic murmur, rubs, systolic murmur GI/Abdominal exam: PRESENT: normal bowel sounds, soft, other - Ostomy is patent. No sign of infection or erythema. Adequate output.. ABSENT: distended, guarding, mass, organolmegaly, rebound, tenderness Extremities exam: PRESENT: +2 edema Neurological exam: PRESENT: alert, awake, oriented to person, oriented to place, oriented to time, oriented to situation, CN II-XII grossly intact. ABSENT: motor sensory deficit Skin exam: PRESENT: dry, intact, warm. ABSENT: cyanosis, rash Results Laboratory Results: 05/14/19 05:41 05/14/19 05:41 05/13/19 05/14/19 05/14/19 18:01 05:41 05:41 WBC 7.2 4.6 RBC 2.73 L 2.27 L Hgb 8.7 L 7.3 L Hct 24.6 L 20.3 L MCV 90 89 MCH 31.7 32.0 MCHC 35.2 35.8 RDW 13.8 13.4 Plt Count 170 130 L Sodium 127.1 L Potassium 3.9 Chloride 91 L Carbon Dioxide 33 H Anion Gap 3 L BUN 6 L Creatinine 0.24 L Est GFR ( Amer) > 60 Glucose 86 Calcium 7.3 L Magnesium 1.4 L Total Bilirubin 0.6 AST 21 Alkaline Phosphatase 62 Total Protein 4.3 L Albumin 2.0 L 05/05/19 14:40 NT-Pro-B Natriuret Pep 183 H Impressions: Acute Abdomen Series 05/05/19 17:05 IMPRESSION: Persistent dilated colon with mild small-bowel distention. KUB X-Ray 05/05/19 19:06 IMPRESSION: The NG tube is about 5 cm inside the stomach. Barium Enema 05/06/19 00:00 IMPRESSION: SUGGESTED MASS WITHIN THE MID SIGMOID COLON CAUSING NEAR COMPLETE OBSTRUCTION. A VERY SMALL AMOUNT CONTRAST DOES REACH THE DESCENDING COLON. RECTUM AND RECTOSIGMOID JUNCTION APPEARS NORMAL. MODERATE AIR AND FLUID-FILLED DILATATION OF THE REMAINDER OF THE COLON DUE TO OBSTRUCTION. Venous Doppler Study 05/11/19 00:00 IMPRESSION: LIMITED STUDY. NO EVIDENCE DVT OR SVT IN EITHER LEG. Abdomen Ultrasound 05/13/19 00:00 IMPRESSION: 1. Increased echogenicity of hepatic parenchyma suggestive of hepatic steatosis. 2. Cholelithiasis without other associated ancillary findings to indicate an acute cholecystitis. Assessment and Plan - Diagnosis (1) Hyponatremia Is this a current diagnosis for this admission?: Yes Plan: Improving. 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 Patient drinks about 4 to 5 L of water daily, does not like flavored drinks or sodas. Continue fluid restriction, sodium bicarbonate p.o, BMP tomorrow. (2) Bowel obstruction Is this a current diagnosis for this admission?: Yes Plan: Day 7 status post exploratory laparotomy, sigmoid colectomy and diverting colostomy. Tissue biopsy negative for any malignancy. Ostomy patent. Tolerating feeds. Surgery on board. Recommendations noted. (3) Obesity Qualifiers: Body mass index: BMI 40.0-44.9 Is this a current diagnosis for this admission?: Yes Plan: TSH WNL. Diet and lifestyle modification recommended. (4) Anasarca Is this a current diagnosis for this admission?: Yes Plan: Likely due to underlying alcoholic hepatic steatosis/cirrhosis. Patient endorses history of heavy alcoholism but currently she is abstinent for several years. Denies any history of CAD, cirrhosis or CKD. proBNP WNL. Kidney function WNL. BLE Venous Doppler negative for DVT Likely due to poor venous return and low albumin state and undiagnosed cirrhosis. CT abdomen positive for steatohepatitis but denies any history of cirrhosis. Abdominal ultrasound is positive for hepatic steatosis. Bilateral lower extremity diffuse 2+ pitting edema. Continue bilateral lower extremity elevation and compression stocking. Hold diuretics due to worsening hyponatremia. (5) Steatohepatitis Is this a current diagnosis for this admission?: Yes Plan: Patient endorses history of heavy alcohol abuse in the past. Has been abstinent for several years. Denies any history of cirrhosis. Likely due alcoholism or NAFLD/autoimmune hepatitis. Patient has a stigmata of liver cirrhosis. CT and abdominal ultrasound was positive for hepatic steatosis. Patient is thrombocytopenic, low albumin state and anemia which could all be due to underlying undiagnosed hepatic cirrhosis. Viral hepatitis panel negative. Pending serum copper, alpha-1 antitrypsin level, antimitochondrial antibody, anti-smooth muscle antibody, antinuclear antibody. Unfortunately no GI consult available until next Friday. Outpatient PCP and GI follow-up. (6) UTI (urinary tract infection) Qualifiers: Urinary tract infection type: acute cystitis Is this a current diagnosis for this admission?: Yes Plan: Due to E. coli. Pansensitive. Completed a course of antibiotics. Asymptomatic. (7) Hypokalemia Is this a current diagnosis for this admission?: Yes Plan: Likely due to GI losses. No acute EKG changes. Continue supplemental potassium. Potassium level tomorrow. (8) Hypomagnesemia Is this a current diagnosis for this admission?: Yes Plan: Most likely due to GI losses. Continue daily replacement. Magnesium level tomorrow. (9) Anemia Qualifiers: Anemia type: other cause Other causes of anemia: acute posthemorrhagic Qualified Code(s): D62 - Acute posthemorrhagic anemia Is this a current diagnosis for this admission?: Yes Plan: Multifactorial. Combination of posthemorrhagic anemia, folic acid deficiency liver cirrhosis and anemia of chronic disease. Hemoglobin on admission 14.9. Folic acid 2.67. B12 399. Iron 40.6. Hemoglobin has dropped to 7.5 not no apparent sign of bleeding. Abdominal ultrasound no acute findings. Patient refusing PRBC transfusion stating that "she does not want anybody else with blood in her body." Monitor H&H, supportive transfusions. If acute drop in hemoglobin will do abdominal CT to rule out any occult sign of bleeding as patient had recent abdominal surgery.
[2019-05-14] MEDS ORDERED: ACETAMINOPHEN 325 MG TABLET PO PRN (18:37)
[2019-05-14] MEDS: SERTRALINE HCL 50 MG TABLET PO SCH (21:59)
[2019-05-15] MEDS: OXYCODONE HCL IR 5 MG TABLET PO PRN ×4 (04:24→21:56)
[2019-05-15] MEDS: PANTOPRAZOLE SODIUM 40 MG TABLET.DR PO SCH (05:34)
[2019-05-15 06:19] LABS: ABSOLUTE EOSINOPHILS # (AUTO) 0.1 10^3/uL (0.0-0.6); ABSOLUTE LYMPHOCYTES (AUTO) 2.1 10^3/uL (0.5-4.7); ABSOLUTE MONOCYTES (AUTO) 0.6 10^3/uL (0.1-1.4); ABSOLUTE NEUT (AUTO) 3.5 10^3/uL (1.7-8.2); BASOPHILS % (AUTO) 0.3 % (0-2); EOSINOPHILS % (AUTO) 1.7 % (0-6); HEMATOCRIT 19.8 % (36.0-47.0); LYMPHOCYTES % (AUTO) 32.8 % (13-45); MEAN CORPUSCULAR HEMOGLOBIN 31.9 pg (27.0-33.4); MEAN CORPUSCULAR HGB CONC 35.4 g/dL (32.0-36.0); MEAN CORPUSCULAR VOLUME 90 fl (80-97); PLATELET COUNT 150 10^3/uL (150-450); RED BLOOD COUNT 2.19 10^6/uL (3.72-5.28); RED CELL DISTRIBUTION WIDTH 13.7 % (11.5-14.0); SEGMENTED NEUTROPHILS % (AUTO) 56.2 % (42-78); TOTAL CELLS COUNTED % (AUTO) 100 %; WHITE BLOOD COUNT 6.3 10^3/uL (4.0-10.5)
[2019-05-15 06:42] LABS: BLOOD UREA NITROGEN 6 mg/dL (7-20); CALCIUM 7.2 mg/dL (8.4-10.2); CHLORIDE 95 mmol/L (98-107); GLUCOSE 84 mg/dL (75-110); POTASSIUM 4.3 mmol/L (3.6-5.0)
[2019-05-15 06:47] LABS: CARBON DIOXIDE 30 mmol/L (22-30)
[2019-05-15 06:52] LABS: ANION GAP 1 (5-19)
[2019-05-15] MEDS ORDERED: TOLVAPTAN 15 MG TABLET PO ONE (09:30)
[2019-05-15] MEDS: SODIUM BICARBONATE 650 MG TABLET PO SCH (09:37)
[2019-05-15] MEDS: FERROUS SULFATE 325 MG TABLET PO SCH (09:37)
[2019-05-15] MEDS: FOLIC ACID 1 MG TABLET PO SCH (09:37)
[2019-05-15] MEDS: MAGNESIUM OXIDE 400 MG TABLET PO SCH ×3 (09:37→17:50)
[2019-05-15 10:32] LABS: ANTINUCLEAR ANTIBODIES Negative (Negative)
[2019-05-15] MEDS: GUAIFENESIN/CODEINE PHOS 100-10 MG/ 5 ML UDC PO PRN ×2 (10:32→21:31)
[2019-05-15] MEDS: POTASSIUM CHLORIDE 10 MEQ TABLET.ER PO SCH ×2 (10:32→17:49)
--- NOTE | 2019-05-15 11:08 | PDOC PROGRESS REPORT ---
Subjective Progress Note for:: 05/15/19 Subjective:: 05/11/2019. No acute events overnight. Patient comfortably resting in bed in no apparent distress. Tolerating diet. Denies any abdominal pain. Ostomy functioning well. Still complaining of bilateral lower extremity edema and weakness. 05/12/2019. No acute events overnight. Patient was very upset about the amount of fluid and type of food that she had. Her last 24 hours otherwise denies any fever, chills, nausea, vomiting, diarrhea, on or any urinary symptoms. Ostomy site is patent. Patient reporting adequate ostomy output. Bilateral lower extremity swelling are improving, patient is stating that she is now able to move her bilateral lower extremity compared to yesterday. Still not able to ambulate independently. 05/13/2019. Patient was noted to have a drop in her hemoglobin from 11-7.5, hemoglobin was repeated and again it was found to be low. It was planned by underground mine machinery mechanic to give 2 PRBC transfusions however patient is very upset about trans fusion and does not want to receive any transfusion as she does not believe that she is bleeding, as she does not see any obvious source of bleeding, she is also saying that she is not symptomatic would like to hold transfusion until abdominal ultrasound results are back. Otherwise patient is p.o. tolerant, denies any fever, chills, nausea, vomiting, diarrhea, constipation or any urinary symptoms. Lower extremity edema or improving and patient is able to ambulate well but better than yesterday. 05/14/2019. No acute events overnight. Patient is complaining of generalized weakness otherwise p.o. tolerant and having adequate output from her ostomy, denies any fever, chills, nausea, vomiting, diarrhea, constipation or any urinary symptoms. Lower extremity edema improving. Was able to walk in the hallways yesterday. Had an extensive conversation regarding her hepatic steatosis patient does mention that she used to be a heavy alcoholic but she has stopped for several years. 05/15/2019. Patient thinks she is coming with the flu, complaining of persistent abdominal pain causing her abdomen to hurt, otherwise denies any fever, chills, nausea, vomiting, diarrhea, or any urinary symptoms. Reporting adequate ostomy output, denies any nosebleeds, hematemesis, hemoptysis, hematuria or any bloody output from ostomy. Reason For Visit: COLON OBSTRUCTION,HYPONATREMIA,ANASARCA Physical Exam Vital Signs: Temp Pulse Resp BP Pulse Ox 98.1 F 96 16 105/70 96 05/15/19 07:45 05/15/19 07:45 05/15/19 07:45 05/15/19 07:45 05/15/19 07:45 Intake & Output 05/14/19 05/15/19 05/16/19 06:59 06:59 06:59 Intake Total 1789 1260 Output Total 2900 1825 Balance -1111 -565 Weight 94.4 kg 93.7 kg General appearance: PRESENT: no acute distress, well-developed, well-nourished Head exam: PRESENT: atraumatic, normocephalic Respiratory exam: PRESENT: clear to auscultation young. ABSENT: rales, rhonchi, wheezes Cardiovascular exam: PRESENT: RRR. ABSENT: diastolic murmur, rubs, systolic murmur GI/Abdominal exam: PRESENT: normal bowel sounds, soft, other - Ostomy patent. No sign of bleeding. Ostomy bag filled with brown-colored stool.. ABSENT: distended, guarding, mass, organolmegaly, rebound, tenderness Neurological exam: PRESENT: alert, awake, oriented to person, oriented to place, oriented to time, oriented to situation, CN II-XII grossly intact. ABSENT: motor sensory deficit Results Laboratory Results: 05/15/19 05:58 05/15/19 05:58 05/15/19 05/15/19 05:58 05:58 WBC 6.3 RBC 2.19 L Hgb 7.0 L Hct 19.8 L MCV 90 MCH 31.9 MCHC 35.4 RDW 13.7 Plt Count 150 Seg Neutrophils % 56.2 Sodium 126.3 L Potassium 4.3 Chloride 95 L Carbon Dioxide 30 Anion Gap 1 L BUN 6 L Creatinine 0.25 L Est GFR ( Amer) > 60 Glucose 84 Calcium 7.2 L Magnesium 1.5 L 05/05/19 14:40 NT-Pro-B Natriuret Pep 183 H Impressions: Acute Abdomen Series 05/05/19 17:05 IMPRESSION: Persistent dilated colon with mild small-bowel distention. KUB X-Ray 05/05/19 19:06 IMPRESSION: The NG tube is about 5 cm inside the stomach. Barium Enema 05/06/19 00:00 IMPRESSION: SUGGESTED MASS WITHIN THE MID SIGMOID COLON CAUSING NEAR COMPLETE OBSTRUCTION. A VERY SMALL AMOUNT CONTRAST DOES REACH THE DESCENDING COLON. RECTUM AND RECTOSIGMOID JUNCTION APPEARS NORMAL. MODERATE AIR AND FLUID-FILLED DILATATION OF THE REMAINDER OF THE COLON DUE TO OBSTRUCTION. Venous Doppler Study 05/11/19 00:00 IMPRESSION: LIMITED STUDY. NO EVIDENCE DVT OR SVT IN EITHER LEG. Abdomen Ultrasound 05/13/19 00:00 IMPRESSION: 1. Increased echogenicity of hepatic parenchyma suggestive of hepatic steatosis. 2. Cholelithiasis without other associated ancillary findings to indicate an acute cholecystitis. Assessment and Plan - Diagnosis (1) Hyponatremia Is this a current diagnosis for this admission?: Yes Plan: Persistent hyponatremia. Denies any history of hyponatremia however noted to be hyponatremic on admission. Previous labs available. Multifactorial. 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 Given the fact that patient is hypervolemic due to underlying hepatic steatosis/cirrhosis starting on NS or hypertonic saline will only worsen volume status. Will continue fluid restriction, DC SSRIs and PPIs. We will give 1 dose of tolvaptan. Meanwhile we will rule out urinary sodium losses. (2) Bowel obstruction Is this a current diagnosis for this admission?: Yes Plan: Due to bowel stricture. Day 8 status post exploratory laparotomy, sigmoid colectomy and diverting colostomy. Tissue biopsy negative for any malignancy. Ostomy patent. Tolerating feeds. Surgery on board. Recommendations noted. (3) Obesity Qualifiers: Body mass index: BMI 40.0-44.9 Is this a current diagnosis for this admission?: Yes Plan: TSH WNL. Diet and lifestyle modification recommended. (4) Anasarca Is this a current diagnosis for this admission?: Yes Plan: Likely due to underlying alcoholic hepatic steatosis/cirrhosis. Patient endorses history of heavy alcoholism but currently she is abstinent for several years. Denies any history of CAD, cirrhosis or CKD. proBNP WNL. Kidney function WNL. BLE Venous Doppler negative for DVT Likely due to poor venous return and low albumin state and undiagnosed cirrhosis. CT abdomen positive for steatohepatitis but denies any history of cirrhosis. Abdominal ultrasound is positive for hepatic steatosis. Bilateral lower extremity edema improving. Continue bilateral lower extremity elevation and compression stocking. Hold diuretics due to worsening hyponatremia. (5) Steatohepatitis Is this a current diagnosis for this admission?: Yes Plan: Patient endorses history of heavy alcohol abuse in the past. Has been abstinent for several years. Denies any history of cirrhosis. Likely due alcoholism or NAFLD/autoimmune hepatitis. Patient has a stigmata of liver cirrhosis. CT and abdominal ultrasound was positive for hepatic steatosis. Patient is thrombocytopenic, low albumin state and anemia which could all be due to underlying undiagnosed hepatic cirrhosis. Viral hepatitis panel negative. Pending serum copper, alpha-1 antitrypsin level, antimitochondrial antibody, anti-smooth muscle antibody, antinuclear antibody. Unfortunately no GI consult available until next Friday. Outpatient PCP and GI follow-up. (6) UTI (urinary tract infection) Qualifiers: Urinary tract infection type: acute cystitis Is this a current diagnosis for this admission?: Yes Plan: Due to E. coli. Pansensitive. Completed a course of antibiotics. Asymptomatic. (7) Hypokalemia Is this a current diagnosis for this admission?: Yes Plan: Likely due to GI losses. No acute EKG changes. Continue supplemental potassium. Potassium level tomorrow. (8) Hypomagnesemia Is this a current diagnosis for this admission?: Yes Plan: Most likely due to GI losses. Continue daily replacement. Magnesium level tomorrow. (9) Anemia Qualifiers: Anemia type: other cause Other causes of anemia: acute posthemorrhagic Qualified Code(s): D62 - Acute posthemorrhagic anemia Is this a current diagnosis for this admission?: Yes Plan: Multifactorial. Combination of posthemorrhagic anemia, folic acid deficiency liver cirrhosis and anemia of chronic disease. Hemoglobin on admission 14.9. Folic acid 2.67. B12 399. Iron 40.6. Hemoglobin has dropped to 7 not no apparent sign of bleeding. Denies any nosebleeds, hematemesis, hemoptysis, hematuria, vaginal bleed, or bloody stool. Abdominal ultrasound no acute findings. Patient refusing PRBC transfusion stating that "she does not want anybody else with blood in her body." Monitor H&H, supportive transfusions. If acute drop in hemoglobin will do abdominal CT to rule out any occult sign of bleeding as patient had recent abdominal surgery.
[2019-05-15 15:36] LABS: A TYPE INFLUENZA AG NEGATIVE (NEGATIVE); B INFLUENZA AG NEGATIVE (NEGATIVE)
[2019-05-15 15:40] LABS: URINE CREATININE 6.6 mg/dL (15-278)
[2019-05-15] MEDS: FAMOTIDINE 20 MG TABLET PO SCH (21:31)
[2019-05-16] MEDS: GUAIFENESIN/CODEINE PHOS 100-10 MG/ 5 ML UDC PO PRN (02:53)
[2019-05-16 06:10] LABS: HEMATOCRIT 20.1 % (36.0-47.0); MEAN CORPUSCULAR HEMOGLOBIN 32.6 pg (27.0-33.4); MEAN CORPUSCULAR HGB CONC 36.2 g/dL (32.0-36.0); MEAN CORPUSCULAR VOLUME 90 fl (80-97); PLATELET COUNT 194 10^3/uL (150-450); RED BLOOD COUNT 2.22 10^6/uL (3.72-5.28); RED CELL DISTRIBUTION WIDTH 13.8 % (11.5-14.0); WHITE BLOOD COUNT 5.9 10^3/uL (4.0-10.5)
[2019-05-16 06:13] LABS: HEMOGLOBIN 7.3 g/dL (12.0-15.5)
[2019-05-16 06:32] LABS: BLOOD UREA NITROGEN 6 mg/dL (7-20); CALCIUM 7.6 mg/dL (8.4-10.2); CARBON DIOXIDE 31 mmol/L (22-30); GLUCOSE 87 mg/dL (75-110); POTASSIUM 3.8 mmol/L (3.6-5.0)
[2019-05-16 06:38] LABS: ANION GAP 5 (5-19); CHLORIDE 99 mmol/L (98-107)
[2019-05-16] MEDS ORDERED: FUROSEMIDE INJ/PF 40 MG/4 ML SDV IV SCH (10:00)
[2019-05-16] MEDS ORDERED: SODIUM BICARBONATE 650 MG TABLET PO SCH (10:00)
--- NOTE | 2019-05-16 10:12 | PDOC PROGRESS REPORT ---
Subjective Progress Note for:: 05/16/19 Subjective:: 05/11/2019. No acute events overnight. Patient comfortably resting in bed in no apparent distress. Tolerating diet. Denies any abdominal pain. Ostomy functioning well. Still complaining of bilateral lower extremity edema and weakness. 05/12/2019. No acute events overnight. Patient was very upset about the amount of fluid and type of food that she had. Her last 24 hours otherwise denies any fever, chills, nausea, vomiting, diarrhea, on or any urinary symptoms. Ostomy site is patent. Patient reporting adequate ostomy output. Bilateral lower extremity swelling are improving, patient is stating that she is now able to move her bilateral lower extremity compared to yesterday. Still not able to ambulate independently. 05/13/2019. Patient was noted to have a drop in her hemoglobin from 11-7.5, hemoglobin was repeated and again it was found to be low. It was planned by heavy forger to give 2 PRBC transfusions however patient is very upset about trans fusion and does not want to receive any transfusion as she does not believe that she is bleeding, as she does not see any obvious source of bleeding, she is also saying that she is not symptomatic would like to hold transfusion until abdominal ultrasound results are back. Otherwise patient is p.o. tolerant, denies any fever, chills, nausea, vomiting, diarrhea, constipation or any urinary symptoms. Lower extremity edema or improving and patient is able to ambulate well but better than yesterday. 05/14/2019. No acute events overnight. Patient is complaining of generalized weakness otherwise p.o. tolerant and having adequate output from her ostomy, denies any fever, chills, nausea, vomiting, diarrhea, constipation or any urinary symptoms. Lower extremity edema improving. Was able to walk in the hallways yesterday. Had an extensive conversation regarding her hepatic steatosis patient does mention that she used to be a heavy alcoholic but she has stopped for several years. 05/15/2019. Patient thinks she is coming with the flu, complaining of persistent abdominal pain causing her abdomen to hurt, otherwise denies any fever, chills, nausea, vomiting, diarrhea, or any urinary symptoms. Reporting adequate ostomy output, denies any nosebleeds, hematemesis, hemoptysis, hematuria or any bloody output from ostomy. 05/16/2019. No acute events overnight. Cough is improving since being started on Robitussin, reporting improvement of lower extremity edema, able to walk with assistance, denies any fever, chills, nausea, vomiting, diarrhea. Reports adequate output from ostomy. Denies melena or hematochezia. Reason For Visit: COLON OBSTRUCTION,HYPONATREMIA,ANASARCA Physical Exam Vital Signs: Temp Pulse Resp BP Pulse Ox 97.4 F 90 17 100/73 96 05/16/19 08:12 05/16/19 08:12 05/16/19 08:12 05/16/19 08:12 05/16/19 08:12 Intake & Output 05/15/19 05/16/19 05/17/19 06:59 06:59 06:59 Intake Total 1260 1002 Output Total 1825 6400 Balance -565 -1483 Weight 93.7 kg 89.6 kg General appearance: PRESENT: no acute distress, well-developed, well-nourished Head exam: PRESENT: atraumatic, normocephalic Respiratory exam: PRESENT: clear to auscultation young. ABSENT: rales, rhonchi, wheezes Cardiovascular exam: PRESENT: RRR. ABSENT: diastolic murmur, rubs, systolic murmur GI/Abdominal exam: PRESENT: normal bowel sounds, soft, other - ostomy patent and intact. ABSENT: distended, guarding, mass, organolmegaly, rebound, tenderness Extremities exam: PRESENT: +1 edema Neurological exam: PRESENT: alert, awake, oriented to person, oriented to place, oriented to time, oriented to situation, CN II-XII grossly intact. ABSENT: motor sensory deficit Results Laboratory Results: 05/16/19 05:52 05/16/19 05:52 05/16/19 05/16/19 05:52 05:52 WBC 5.9 RBC 2.22 L Hgb 7.3 L Hct 20.1 L MCV 90 MCH 32.6 MCHC 36.2 H RDW 13.8 Plt Count 194 Sodium 135.1 L Potassium 3.8 Chloride 99 Carbon Dioxide 31 H Anion Gap 5 BUN 6 L Creatinine 0.28 L Est GFR ( Amer) > 60 Glucose 87 Calcium 7.6 L Magnesium 1.8 05/05/19 14:40 NT-Pro-B Natriuret Pep 183 H Impressions: Acute Abdomen Series 05/05/19 17:05 IMPRESSION: Persistent dilated colon with mild small-bowel distention. KUB X-Ray 05/05/19 19:06 IMPRESSION: The NG tube is about 5 cm inside the stomach. Barium Enema 05/06/19 00:00 IMPRESSION: SUGGESTED MASS WITHIN THE MID SIGMOID COLON CAUSING NEAR COMPLETE OBSTRUCTION. A VERY SMALL AMOUNT CONTRAST DOES REACH THE DESCENDING COLON. RECTUM AND RECTOSIGMOID JUNCTION APPEARS NORMAL. MODERATE AIR AND FLUID-FILLED DILATATION OF THE REMAINDER OF THE COLON DUE TO OBSTRUCTION. Venous Doppler Study 05/11/19 00:00 IMPRESSION: LIMITED STUDY. NO EVIDENCE DVT OR SVT IN EITHER LEG. Abdomen Ultrasound 05/13/19 00:00 IMPRESSION: 1. Increased echogenicity of hepatic parenchyma suggestive of hepatic steatosis. 2. Cholelithiasis without other associated ancillary findings to indicate an acute cholecystitis. Assessment and Plan - Diagnosis (1) Hyponatremia Is this a current diagnosis for this admission?: Yes Plan: Resolved. Denies any history of hyponatremia however noted to be hyponatremic on admission. Previous labs available. Multifactorial. 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 Given the fact that patient is hypervolemic due to underlying hepatic steatosis/cirrhosis starting on NS or hypertonic saline will only worsen volume status. Received 1 dose of tolvaptan on 05/15/2019. Urine sodium 7. DC SSRIs and PPIs. Continue fluid restriction, supplemental sodium bicarbonate. (2) Bowel obstruction Is this a current diagnosis for this admission?: Yes Plan: Due to bowel stricture. Day 9 status post exploratory laparotomy, sigmoid colectomy and diverting colostomy. Tissue biopsy negative for any malignancy. Ostomy patent. Tolerating feeds. Surgery on board. Recommendations noted. (3) Obesity Qualifiers: Body mass index: BMI 40.0-44.9 Is this a current diagnosis for this admission?: Yes Plan: TSH WNL. Diet and lifestyle modification recommended. (4) Anasarca Is this a current diagnosis for this admission?: Yes Plan: Moderate improvement. Likely due to underlying alcoholic hepatic steatosis/cirrhosis. Patient endo rses history of heavy alcoholism but currently she is abstinent for several years. Denies any history of CAD, cirrhosis or CKD. proBNP WNL. Kidney function WNL. BLE Venous Doppler negative for DVT Likely due to poor venous return and low albumin state and undiagnosed cirrhosis. CT abdomen positive for steatohepatitis but denies any history of cirrhosis. Abdominal ultrasound is positive for hepatic steatosis. Bilateral lower extremity edema improving. Continue bilateral lower extremity elevation and compression stocking. Resume Lasix once daily. (5) Steatohepatitis Is this a current diagnosis for this admission?: Yes Plan: Patient endorses history of heavy alcohol abuse in the past. Has been abstinent for several years. Denies any history of cirrhosis. Likely due alcoholism or NAFLD/autoimmune hepatitis. Patient has a stigmata of liver cirrhosis. CT and abdominal ultrasound was positive for hepatic steatosis. Patient is thrombocytopenic, low albumin state and anemia which could all be due to underlying undiagnosed hepatic cirrhosis. Viral hepatitis panel negative. Pending serum copper, alpha-1 antitrypsin level, antimitochondrial antibody, anti-smooth muscle antibody, antinuclear antibody. Unfortunately no GI consult available until next Friday. Outpatient PCP and GI follow-up. (6) UTI (urinary tract infection) Qualifiers: Urinary tract infection type: acute cystitis Is this a current diagnosis for this admission?: Yes Plan: Due to E. coli. Pansensitive. Completed a course of antibiotics. Asymptomatic. (7) Hypokalemia Is this a current diagnosis for this admission?: Yes Plan: Resolved. Likely due to GI losses. No acute EKG changes. Continue supplemental potassium. Potassium level tomorrow. (8) Hypomagnesemia Is this a current diagnosis for this admission?: Yes Plan: Resolved. Most likely due to GI losses. Continue daily replacement. Magnesium level tomorrow. (9) Anemia Qualifiers: Anemia type: other cause Other causes of anemia: acute posthemorrhagic Qualified Code(s): D62 - Acute posthemorrhagic anemia Is this a current diagnosis for this admission?: Yes Plan: Multifactorial. Combination of posthemorrhagic anemia, folic acid deficiency liver cirrhosis and anemia of chronic disease. Hemoglobin on admission 14.9. Folic acid 2.67. B12 399. Iron 40.6. Hemoglobin has dropped to 7 not no apparent sign of bleeding. Denies any nosebleeds, hematemesis, hemoptysis, hematuria, vaginal bleed, or bloody stool. Abdominal ultrasound no acute findings. Patient refusing PRBC transfusion stating that "she does not want anybody else with blood in her body." Monitor H&H, supportive transfusions. If acute drop in hemoglobin will do abdominal CT to rule out any occult sign of bleeding as patient had recent abdominal surgery.
[2019-05-16] MEDS: OXYCODONE HCL IR 5 MG TABLET PO PRN ×3 (10:53→21:46)
[2019-05-16] MEDS: POTASSIUM CHLORIDE 10 MEQ TABLET.ER PO SCH ×2 (10:53→17:03)
[2019-05-16] MEDS: FAMOTIDINE 20 MG TABLET PO SCH ×2 (10:54→21:44)
[2019-05-16] MEDS: FOLIC ACID 1 MG TABLET PO SCH (10:54)
[2019-05-16] MEDS: MAGNESIUM OXIDE 400 MG TABLET PO SCH ×3 (10:54→17:04)
[2019-05-16] MEDS: FERROUS SULFATE 325 MG TABLET PO SCH (10:54)
[2019-05-17] MEDS: OXYCODONE HCL IR 5 MG TABLET PO PRN ×3 (02:14→20:34)
[2019-05-17 05:46] LABS: ABSOLUTE EOSINOPHILS # (AUTO) 0.1 10^3/uL (0.0-0.6); ABSOLUTE LYMPHOCYTES (AUTO) 2.2 10^3/uL (0.5-4.7); ABSOLUTE MONOCYTES (AUTO) 0.4 10^3/uL (0.1-1.4); ABSOLUTE NEUT (AUTO) 2.6 10^3/uL (1.7-8.2); BASOPHILS % (AUTO) 0.5 % (0-2); EOSINOPHILS % (AUTO) 2.2 % (0-6); HEMATOCRIT 19.1 % (36.0-47.0); LYMPHOCYTES % (AUTO) 40.2 % (13-45); MEAN CORPUSCULAR HEMOGLOBIN 31.8 pg (27.0-33.4); MEAN CORPUSCULAR VOLUME 91 fl (80-97); MONOCYTES % (AUTO) 8.2 % (3-13); PLATELET COUNT 220 10^3/uL (150-450); RED BLOOD COUNT 2.11 10^6/uL (3.72-5.28); RED CELL DISTRIBUTION WIDTH 13.7 % (11.5-14.0); SEGMENTED NEUTROPHILS % (AUTO) 48.9 % (42-78); TOTAL CELLS COUNTED % (AUTO) 100 %; WHITE BLOOD COUNT 5.4 10^3/uL (4.0-10.5)
[2019-05-17 05:56] LABS: HEMOGLOBIN 6.7 g/dL (12.0-15.5)
[2019-05-17 06:20] LABS: ALKALINE PHOSPHATASE 67 U/L (38-126); ASPARTATE AMINO TRANSFERASE 23 U/L (14-36); BILIRUBIN,DIRECT 0.2 mg/dL (0.0-0.4); BILIRUBIN,TOTAL 0.3 mg/dL (0.2-1.3); BLOOD UREA NITROGEN 8 mg/dL (7-20); CALCIUM 7.5 mg/dL (8.4-10.2); CHLORIDE 94 mmol/L (98-107); GLUCOSE 93 mg/dL (75-110); POTASSIUM 4.3 mmol/L (3.6-5.0); TOTAL PROTEIN 4.4 g/dL (6.3-8.2)
[2019-05-17 06:25] LABS: CARBON DIOXIDE 33 mmol/L (22-30)
[2019-05-17 06:42] LABS: ANION GAP 3 (5-19)
[2019-05-17] MEDS: POTASSIUM CHLORIDE 10 MEQ TABLET.ER PO SCH ×2 (09:13→17:50)
[2019-05-17] MEDS: FAMOTIDINE 20 MG TABLET PO SCH ×2 (09:13→21:28)
[2019-05-17] MEDS: FOLIC ACID 1 MG TABLET PO SCH (09:14)
[2019-05-17] MEDS: SODIUM BICARBONATE 650 MG TABLET PO SCH ×2 (09:14→17:50)
[2019-05-17] MEDS: MAGNESIUM OXIDE 400 MG TABLET PO SCH ×3 (09:14→17:49)
[2019-05-17] MEDS: FERROUS SULFATE 325 MG TABLET PO SCH (09:14)
[2019-05-17] MEDS: GUAIFENESIN/CODEINE PHOS 100-10 MG/ 5 ML UDC PO PRN ×2 (09:26→16:04)
--- NOTE | 2019-05-17 09:44 | Operative Report ---
Operative Report DATE OF SURGERY: 05/06/19 PREOPERATIVE DIAGNOSIS: Large bowel obstruction. POSTOPERATIVE DIAGNOSIS: Large bowel obstruction secondary to obstructive lesion at the mid sigmoid colon, ventral hernia. OPERATION: Sigmoid colectomy with end colostomy. Repair of ventral hernia. SURGEON: CHRIS ARANA ANESTHESIA: GA TISSUE REMOVED OR ALTERED: Sigmoid colon. Distal segment of descending colon. COMPLICATIONS: None ESTIMATED BLOOD LOSS: 300 cc INTRAOPERATIVE FINDINGS: Massively dilated colon but viable colon. Mid sigmoid colon obstructive lesion. Palpable mass in the left hepatic lobe consistent with hepatic cysts seen on CT scan. Distended but normal feeling small bowel. No other obvious palpable colonic masses. No omental masses. Anterior peritoneum felt smooth with no nodules. Distended gallbladder. Normal appearing bilateral ovaries. PROCEDURE: Informed consent was obtained. Patient was brought to the operating room placed on the operating room table in the supine position. After satisfactory induction of general anesthesia patient was placed in the low lithotomy position and her abdomen was prepped and draped in usual sterile fashion. A midline incision was made dissection was carried down through the fascia into the peritoneal cavity without difficulty. At the lower mid abdomen I encountered a plum sized hernia sac that was excised and the hernia defect was defined. In this hernia repair was performed at the end of the case as part of the fascial closure. Wound protractor as well as Bookwalter retractor was used during the case. The large bowel was massively dilated but it appeared viable. The massively dilated large bowel along with a small bowel dilation made the procedure technically very difficult. The left colon and the sigmoid colon was attempted to be mobilized but due to the distention I could not obtain exposure initially. Therefore using a needle I was able to partially decompress the colon at the proximal sigmoid colon region. Palpation revealed at the mid sigmoid colon a constricting mass with the obvious obstruction at this area. This maneuver allowed me the exposure to mobilized the descending colon and sigmoid colon sufficiently to allow stapling across the colon at the descending colon sigmoid colon junction using a MARÍA stapling device. The descending colon was able to be packed cephalad. But still with the massively dilated sigmoid colon exposure was extremely difficult. Therefore an enterotomy was made in the sigmoid colon with a pursestring suture around it and the sigmoid colon was decompressed with suction. There was no contamination of the peritoneal cavity with feces during this procedure. After the sigmoid colon had been sufficiently decompressed the pursestring suture was tied. The sigmoid colon mesentery was mobilized, taking great care to avoid injury to the ureter. At the end of the case the left ureter was closely inspected and it demonstrated no evidence of injury. The inferior mesenteric artery was taken by clamping dividing and tying and the mesentery between the descending colon and the sigmoid colon was divided using a LigaSure device. The dissection had been carried out distally to the peritoneal reflection and the proximal rectum was divided at this point using a contour stapling device. Inspection of the specimen revealed a mid sigmoid colon obstructive lesion with excellent proximal and distal margins. The specimen was not opened. An exploratory laparotomy was able to be performed after resection of the sigmoid colon. The peritoneal surface anteriorly felt smooth with no nodules. Omentum appeared normal. The small bowel although dilated appeared normal. The colon was dilated throughout making palpation difficult but no obvious lesions were palpable in the remainder of the colon. The liver was able to be palpated and I felt a walnut-sized mass in the left hepatic lobe that was consistent with the hepatic cysts that were seen on CT scan. The gallbladder felt distended. The anterior surface of the stomach felt normal and NG tube placement was confirmed. Both of the ovaries were visualized and appeared small no suspicious masses. The uterus felt unremarkable. There was some bleeding in the pelvis at the rectal stump staple line which was controlled with Vicryl sutures. Prolene sutures marked the edges of the rectal stump, long stitch marking the right side and a short stitch marking the left side. James-Dasilva drain was placed at the pelvis and brought out through an incision in the right lower abdomen. It was sutured in place. Sponge needle instrument counts were all correct. The left colon was brought out as an end colostomy in the patient's left mid abdomen. Because the distal aspect of this left colon appeared ischemic this very distal portion was excised allowing colostomy maturation at pink healthy appearing left colon. This distal aspect of the left colon that was resected was submitted to pathology as well. Sponge needle instrument counts were all correct and hemostasis appeared good. The fascia was closed with running PDS suture. Skin was loosely approximated with rodri and gauze was used for packing. Dressings were applied. The left colon end was matured as a colostomy. Suction was placed into the colostomy and decompression was performed as much as possible. Abdomen felt much softer at the end of the case after this decompression. Patient tolerated procedure well with no apparent complications and was taken to the recovery area in stable condition.
--- NOTE | 2019-05-17 09:52 | PDOC PROGRESS REPORT ---
Subjective Progress Note for:: 05/17/19 Reason For Visit: COLON OBSTRUCTION,HYPONATREMIA,ANASARCA I was asked by the hospitalist service to revisit patient regarding her persisting anemia. Patient was admitted to the hospital with a hemoglobin of 14, now down to 6.7. She is eating, having excellent colostomy output, no hemoptysis, hematemesis, bright red blood per stool; her colostomy no it has been Hemoccult negative. She is weak, deconditioned, but is getting up, ambulating a limited amount in the room. Patient states she does not want a blood transfusion if that is recommended. Physical Exam Vital Signs: Temp Pulse Resp BP Pulse Ox 97.5 F 99 17 90/60 L 100 05/17/19 08:20 05/17/19 08:20 05/17/19 08:20 05/17/19 08:20 05/17/19 08:20 Intake & Output 05/16/19 05/17/19 05/18/19 06:59 06:59 06:59 Intake Total 1002 1612 Output Total 6400 2700 Balance -5398 -1088 Weight 89.6 kg 90 kg General appearance: PRESENT: no acute distress, other - Poor coloring GI/Abdominal exam: PRESENT: other - Soft, nontender; midline dressing removed, rodri in place. Minimal yellow drainage. Ostomy appliance in place, significant amount of loose, brown stool. The abdomen is nontender Results Laboratory Results: 05/17/19 04:04 05/17/19 04:04 05/17/19 05/17/19 04:04 04:04 WBC 5.4 RBC 2.11 L Hgb 6.7 L Hct 19.1 L MCV 91 MCH 31.8 MCHC 35.0 RDW 13.7 Plt Count 220 Seg Neutrophils % 48.9 Sodium 130.0 L Potassium 4.3 Chloride 94 L Carbon Dioxide 33 H Anion Gap 3 L BUN 8 Creatinine 0.35 L Est GFR ( Amer) > 60 Glucose 93 Calcium 7.5 L Magnesium 2.0 Total Bilirubin 0.3 AST 23 Alkaline Phosphatase 67 Total Protein 4.4 L Albumin 2.0 L 05/05/19 14:40 NT-Pro-B Natriuret Pep 183 H Impressions: Acute Abdomen Series 05/05/19 17:05 IMPRESSION: Persistent dilated colon with mild small-bowel distention. KUB X-Ray 05/05/19 19:06 IMPRESSION: The NG tube is about 5 cm inside the stomach. Barium Enema 05/06/19 00:00 IMPRESSION: SUGGESTED MASS WITHIN THE MID SIGMOID COLON CAUSING NEAR COMPLETE OBSTRUCTION. A VERY SMALL AMOUNT CONTRAST DOES REACH THE DESCENDING COLON. RECTUM AND RECTOSIGMOID JUNCTION APPEARS NORMAL. MODERATE AIR AND FLUID-FILLED DILATATION OF THE REMAINDER OF THE COLON DUE TO OBSTRUCTION. Venous Doppler Study 05/11/19 00:00 IMPRESSION: LIMITED STUDY. NO EVIDENCE DVT OR SVT IN EITHER LEG. Abdomen Ultrasound 05/13/19 00:00 IMPRESSION: 1. Increased echogenicity of hepatic parenchyma suggestive of hepatic steatosis. 2. Cholelithiasis without other associated ancillary findings to indicate an acute cholecystitis. Assessment & Plan - Diagnosis (1) Colon obstruction Is this a current diagnosis for this admission?: Yes Plan: Impression: Patient now nearly 2 weeks status post exploratory laparotomy, sigmoid colectomy, colostomy for a benign, complicated diverticular stricture, with persisting anemia of unclear etiology. Patient hemodynamically stable. No clinical evidence of bleeding. Recommendations: 1. I do not believe the patient has a mechanical source for blood loss. She could have an occult source, such as her GI tract, chest or abdomen, however in light of unremarkable physical exam, Hemoccult negative colostomy output, unremarkable abdominal ultrasound and chest x-ray, I doubt there is significant blood loss anywhere. 2. I spoken with the hospitalist today, as well as Dr. Max, [facility] medical oncology and hematology. He will evaluate patient and make recommendations. 3. Surgery will sign off at this time; please reconsult if indicated. (2) Colonic mass Is this a current diagnosis for this admission?: Yes - Time Time Spent: 30 to 50 Minutes Medications reviewed and adjusted accordingly: Yes Anticipated discharge: Home
[2019-05-17] MEDS ORDERED: NORMAL SALINE 250 ML IV PRN ×2 (12:17)
--- NOTE | 2019-05-17 12:26 | PDOC PROGRESS REPORT ---
Subjective Progress Note for:: 05/17/19 Subjective:: 05/11/2019. No acute events overnight. Patient comfortably resting in bed in no apparent distress. Tolerating diet. Denies any abdominal pain. Ostomy functioning well. Still complaining of bilateral lower extremity edema and weakness. 05/12/2019. No acute events overnight. Patient was very upset about the amount of fluid and type of food that she had. Her last 24 hours otherwise denies any fever, chills, nausea, vomiting, diarrhea, on or any urinary symptoms. Ostomy site is patent. Patient reporting adequate ostomy output. Bilateral lower extremity swelling are improving, patient is stating that she is now able to move her bilateral lower extremity compared to yesterday. Still not able to ambulate independently. 05/13/2019. Patient was noted to have a drop in her hemoglobin from 11-7.5, hemoglobin was repeated and again it was found to be low. It was planned by scrum master to give 2 PRBC transfusions however patient is very upset about trans fusion and does not want to receive any transfusion as she does not believe that she is bleeding, as she does not see any obvious source of bleeding, she is also saying that she is not symptomatic would like to hold transfusion until abdominal ultrasound results are back. Otherwise patient is p.o. tolerant, denies any fever, chills, nausea, vomiting, diarrhea, constipation or any urinary symptoms. Lower extremity edema or improving and patient is able to ambulate well but better than yesterday. 05/14/2019. No acute events overnight. Patient is complaining of generalized weakness otherwise p.o. tolerant and having adequate output from her ostomy, denies any fever, chills, nausea, vomiting, diarrhea, constipation or any urinary symptoms. Lower extremity edema improving. Was able to walk in the hallways yesterday. Had an extensive conversation regarding her hepatic steatosis patient does mention that she used to be a heavy alcoholic but she has stopped for several years. 05/15/2019. Patient thinks she is coming with the flu, complaining of persistent abdominal pain causing her abdomen to hurt, otherwise denies any fever, chills, nausea, vomiting, diarrhea, or any urinary symptoms. Reporting adequate ostomy output, denies any nosebleeds, hematemesis, hemoptysis, hematuria or any bloody output from ostomy. 05/16/2019. No acute events overnight. Cough is improving since being started on Robitussin, reporting improvement of lower extremity edema, able to walk with assistance, denies any fever, chills, nausea, vomiting, diarrhea. Reports adequate output from ostomy. Denies melena or hematochezia. 05/17/2019. No acute events overnight. Denies any fever, chills, nausea, vomiting, diarrhea, constipation or any urinary symptoms. Reporting adequate ostomy output with no melena or blood. Unfortunately patient's hemoglobin is still dropping with no obvious sign of bleeding. Has been evaluated by surgery who think that patient is unlikely to be having any GI bleed, hematology is on board and recommending LDH to rule out any hemolysis. After much discussion patient has agreed to receive PRBC transfusion today. Reason For Visit: COLON OBSTRUCTION,HYPONATREMIA,ANASARCA Physical Exam Vital Signs: Temp Pulse Resp BP Pulse Ox 97.5 F 99 17 90/60 L 100 05/17/19 08:20 05/17/19 08:20 05/17/19 08:20 05/17/19 08:20 05/17/19 08:20 Intake & Output 05/16/19 05/17/19 05/18/19 06:59 06:59 06:59 Intake Total 1002 1612 Output Total 6400 2700 Balance -5398 -1088 Weight 89.6 kg 90 kg General appearance: PRESENT: no acute distress, well-developed, well-nourished Head exam: PRESENT: atraumatic, normocephalic Respiratory exam: PRESENT: clear to auscultation young. ABSENT: rales, rhonchi, wheezes Cardiovascular exam: PRESENT: RRR. ABSENT: diastolic murmur, rubs, systolic murmur GI/Abdominal exam: PRESENT: normal bowel sounds, soft, other - Ostomy patent, no sign of bleeding.. ABSENT: distended, guarding, mass, organolmegaly, rebound, tenderness Neurological exam: PRESENT: alert, awake, oriented to person, oriented to place, oriented to time, oriented to situation, CN II-XII grossly intact. ABSENT: motor sensory deficit Results Laboratory Results: 05/17/19 04:04 05/17/19 04:04 05/17/19 05/17/19 04:04 04:04 WBC 5.4 RBC 2.11 L Hgb 6.7 L Hct 19.1 L MCV 91 MCH 31.8 MCHC 35.0 RDW 13.7 Plt Count 220 Seg Neutrophils % 48.9 Sodium 130.0 L Potassium 4.3 Chloride 94 L Carbon Dioxide 33 H Anion Gap 3 L BUN 8 Creatinine 0.35 L Est GFR ( Amer) > 60 Glucose 93 Calcium 7.5 L Magnesium 2.0 Total Bilirubin 0.3 AST 23 Alkaline Phosphatase 67 Total Protein 4.4 L Albumin 2.0 L 05/05/19 14:40 NT-Pro-B Natriuret Pep 183 H Impressions: Acute Abdomen Series 05/05/19 17:05 IMPRESSION: Persistent dilated colon with mild small-bowel distention. KUB X-Ray 05/05/19 19:06 IMPRESSION: The NG tube is about 5 cm inside the stomach. Barium Enema 05/06/19 00:00 IMPRESSION: SUGGESTED MASS WITHIN THE MID SIGMOID COLON CAUSING NEAR COMPLETE OBSTRUCTION. A VERY SMALL AMOUNT CONTRAST DOES REACH THE DESCENDING COLON. RECTUM AND RECTOSIGMOID JUNCTION APPEARS NORMAL. MODERATE AIR AND FLUID-FILLED DILATATION OF THE REMAINDER OF THE COLON DUE TO OBSTRUCTION. Venous Doppler Study 05/11/19 00:00 IMPRESSION: LIMITED STUDY. NO EVIDENCE DVT OR SVT IN EITHER LEG. Abdomen Ultrasound 05/13/19 00:00 IMPRESSION: 1. Increased echogenicity of hepatic parenchyma suggestive of hepatic steatosis. 2. Cholelithiasis without other associated ancillary findings to indicate an acute cholecystitis. Assessment and Plan - Diagnosis (1) Hyponatremia Is this a current diagnosis for this admission?: Yes Plan: Unfortunately sodium is dropping to 130 today. Denies any history of hyponatremia however noted to be hyponatremic on admission. Previous labs available. Multifactorial. 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 Given the fact that patient is hypervolemic due to underlying hepatic steatosis/cirrhosis starting on NS or hypertonic saline will only worsen volume status. Received 1 dose of tolvaptan on 05/15/2019. Urine sodium 7. DC SSRIs and PPIs. Nephrology consulted for recommendation is to hold sodium bicarbonate supplement and continue fluid restriction and IV Lasix. (2) Anemia Qualifiers: Anemia type: other cause Other causes of anemia: acute posthemorrhagic Qualified Code(s): D62 - Acute posthemorrhagic anemia Is this a current diagnosis for this admission?: Yes Plan: Hemoglobin dropping to 6.7 with no obvious sign of bleeding. Multifactorial. Combination of posthemorrhagic anemia, folic acid deficiency liver cirrhosis and anemia of chronic disease. Hemoglobin on admission 14.9. Folic acid 2.67. B12 399. Iron 40.6. Denies any nosebleeds, hematemesis, hemoptysis, hematuria, vaginal bleed, or bloody stool. Has been reevaluated by surgery and as per their observation patient may not be having any acute GI bleed. Discussed case with hematology recommendation is to order LDH to rule out any hemolysis. Abdominal ultrasound no acute findings. Patient has been refusing PRBC transfusions sating that "she does not want anybody else with blood in her body.", but after much discussion patient has agreed to receive 2 PRBC transfusion today. Scheduled to receive 2 PRBC transfusion today. (3) Bowel obstruction Is this a current diagnosis for this admission?: Yes Plan: Due to bowel stricture. Day 9 status post exploratory laparotomy, sigmoid colectomy and diverting colostomy. Tissue biopsy negative for any malignancy. Ostomy patent. Tolerating feeds. Surgery on board. Recommendations noted. (4) Obesity Qualifiers: Body mass index: BMI 40.0-44.9 Is this a current diagnosis for this admission?: Yes Plan: TSH WNL. Diet and lifestyle modification recommended. (5) Anasarca Is this a current diagnosis for this admission?: Yes Plan: Moderate improvement. Likely due to underlying alcoholic hepatic steatosis/cirrhosis. Patient endorses history of heavy alcoholism but currently she is abstinent for several years. Denies any history of CAD, cirrhosis or CKD. proBNP WNL. Kidney function WNL. BLE Venous Doppler negative for DVT Likely due to poor venous return and low albumin state and undiagnosed cirrhosis. CT abdomen positive for steatohepatitis but denies any history of cirrhosis. Abdominal ultrasound is positive for hepatic steatosis. Bilateral lower extremity edema improving. Continue bilateral lower extremity elevation and compression stocking. Resume Lasix once daily. (6) Steatohepatitis Is this a current diagnosis for this admission?: Yes Plan: Patient endorses history of heavy alcohol abuse in the past. Has been abstinent for several years. Denies any history of cirrhosis. Likely due alcoholism or NAFLD/autoimmune hepatitis. Patient has a stigmata of liver cirrhosis. CT and abdominal ultrasound was positive for hepatic steatosis. Patient is thrombocytopenic, low albumin state and anemia which could all be due to underlying undiagnosed hepatic cirrhosis. Viral hepatitis panel negative. Pending serum copper, alpha-1 antitrypsin level, antimitochondrial antibody, anti-smooth muscle antibody, antinuclear antibody. Unfortunately no GI consult available until next Friday. Outpatient PCP and GI follow-up. (7) UTI (urinary tract infection) Qualifiers: Urinary tract infection type: acute cystitis Is this a current diagnosis for this admission?: Yes Plan: Due to E. coli. Pansensitive. Completed a course of antibiotics. Asymptomatic. (8) Hypokalemia Is this a current diagnosis for this admission?: Yes Plan: Resolved. Likely due to GI losses. No acute EKG changes. Continue supplemental potassium. Potassium level tomorrow. (9) Hypomagnesemia Is this a current diagnosis for this admission?: Yes Plan: Resolved. Most likely due to GI losses. Continue daily replacement. Magnesium level tomorrow.
[2019-05-17 12:42] LABS: ABSOLUTE RETICS # 0.082 10^6/uL (0.028-0.122)
--- NOTE | 2019-05-17 19:48 | PDOC CONSULTATION ---
Consultation Consult Date: 05/17/19 Provider Consulted: TAWANA THOMAS Consult reason:: hyponatremia History of Present Illness Admission Date/PCP: 05/05/19 19:22 History of Present Illness: JIM VICK is a 58 year old female with no significant past medical history. She showed up to the ER for several days of no bowel movement and increased swelling of her legs. This started 7 weeks prior to going to the ER. At that time she experienced nausea, vomiting, diarrhea, abdominal bloating. Since the time of the abdominal bloating her bowels have been shifting from diarrhea to constipation. She has also had decreased food intake. She had experienced vomiting typically after no bowel movement for a few days. Prior to admission she notice increased fluid retention in her legs for about a week. A few days prior to coming back to the ER she had been she had been for the same issue. She was given a fleets enema and had a small bowel movement but nothing since. Since then she had continued abdominal distention. She has tried multiple [id number] treatments only cause increased crampy pain, increased abdominal distention. A CT scan obtained from visit Friday showed distended colon with possible narrowing in the sigmoid colon. An acute abdominal series obtained ER showed clear lungs with no evidence of infiltrate. No free air in the abdomen. Still with dilated colon and scattered air-fluid levels on the upright view w/ small bowel distention. Laboratory studies revealed a serum sodium of 123.7 with a chloride of 86. Serum potassium was normal as was the serum creatinine. BUN was minimally elevated at 24. The total bilirubin was 1.3 and her albumin was only 2.4. Brain natruretic peptide was only 183. The patient at that time was admitted. In the hospital she was seen by surgery for the mass found in her sigmoid colon. Surgery determined that she needed the sigmoid part of the colon removed. After removal she was left with a colostomy bag. The mass was sent to pathology and determined to be nonmalignant. Around this same time it was determined by hematology that she was anemic due to a folate deficiency. As for the low sodium, she was placed on fluid restriction, started on salt tablets, diuretics and normal saline for a short period. The sodium has been slowly improving. The swelling has been up and down. According to the patient she had a large amount of output from her bag the first few days but it is slowly getting slower. Still empties the bag a few times a day. Currently bowel movements are loose going into the bag. She currently does not have SOB or chest pain. She has noticed the swelling staying about the same. Still has poor oral intake but it is slowly improving. Past Medical History Medical History: None Past Surgical History Past Surgical History: Reports: Tubal Ligation, Other - Recent left hemicolectomy with ostomy placement Social History Lives with: Spouse/Significant other - Patient is and has 3 children Smoking Status: Never Smoker Electronic Cigarette use?: No Frequency of Alcohol Use: None Hx Recreational Drug Use: No Hx Prescription Drug Abuse: No - Advance Directive Resuscitation Status: Full Code Family History Parental Family History Reviewed: Yes Children Family History Reviewed: Unknown Sibling(s) Family History Reviewed.: Unknown Medication/Allergy Home Medications: No Home Medications 05/05/19 Allergies/Adverse Reactions: No Known Allergies Allergy (Verified 05/05/19 14:05) Review of Systems Constitutional: ABSENT: chills, fever(s), weakness Eyes: ABSENT: visual disturbances Nose, Mouth, and Throat: ABSENT: headache(s) Cardiovascular: PRESENT: edema. ABSENT: chest pain, dyspnea on exertion, orthropnea, palpitations Respiratory: ABSENT: cough, dyspnea, sputum Gastrointestinal: PRESENT: abdominal pain, diarrhea. ABSENT: constipation, nausea, vomiting Genitourinary: ABSENT: difficulty urinating, dysuria, hematuria Musculoskeletal: ABSENT: muscle weakness Neurological: ABSENT: dizziness, focal weakness, weakness Psychiatric: ABSENT: anxiety Physical Exam Vital Signs: Temp Pulse Resp BP Pulse Ox 97.8 F 92 16 100/67 99 05/17/19 18:22 05/17/19 18:22 05/17/19 18:22 05/17/19 18:22 05/17/19 18:22 Intake & Output 05/16/19 05/17/19 05/18/19 06:59 06:59 06:59 Intake Total 1002 1612 1606 Output Total 6383 0340 1750 Balance -5398 -1088 -144 Weight 89.6 kg 90 kg General appearance: PRESENT: well-developed, well-nourished. ABSENT: no acute distress Mouth exam: PRESENT: moist, neck supple Neck exam: ABSENT: JVD, tracheal deviation Respiratory exam: PRESENT: clear to auscultation young. ABSENT: crackles, rales, rhonchi, wheezes Cardiovascular exam: PRESENT: RRR, +S1, +S2 GI/Abdominal exam: PRESENT: tenderness. ABSENT: distended Extremities exam: PRESENT: pedal edema, +2 edema. ABSENT: tenderness Musculoskeletal exam: PRESENT: normal inspection. ABSENT: tenderness Neurological exam: PRESENT: alert, awake, oriented to person, oriented to place, oriented to time, oriented to situation Skin exam: PRESENT: dry, intact Results Laboratory Results: 05/17/19 04:04 05/17/19 04:04 05/17/19 05/17/19 05/17/19 04:04 04:04 04:04 WBC 5.4 RBC 2.11 L Hgb 6.7 L Hct 19.1 L MCV 91 MCH 31.8 MCHC 35.0 RDW 13.7 Plt Count 220 Seg Neutrophils % 48.9 Retic Count (auto) 3.90 H Sodium 130.0 L Potassium 4.3 Chloride 94 L Carbon Dioxide 33 H Anion Gap 3 L BUN 8 Creatinine 0.35 L Est GFR ( Amer) > 60 Glucose 93 Calcium 7.5 L Magnesium 2.0 Total Bilirubin 0.3 AST 23 Alkaline Phosphatase 67 Total Protein 4.4 L Albumin 2.0 L Blood Type Antibody Screen 05/17/19 12:40 WBC RBC Hgb Hct MCV MCH MCHC RDW Plt Count Seg Neutrophils % Retic Count (auto) Sodium Potassium Chloride Carbon Dioxide Anion Gap BUN Creatinine Est GFR ( Amer) Glucose Calcium Magnesium Total Bilirubin AST Alkaline Phosphatase Total Protein Albumin Blood Type O NEGATIVE Antibody Screen NEGATIVE 05/05/19 14:40 NT-Pro-B Natriuret Pep 183 H Impressions: Acute Abdomen Series 05/05/19 17:05 IMPRESSION: Persistent dilated colon with mild small-bowel distention. KUB X-Ray 05/05/19 19:06 IMPRESSION: The NG tube is about 5 cm inside the stomach. Barium Enema 05/06/19 00:00 IMPRESSION: SUGGESTED MASS WITHIN THE MID SIGMOID COLON CAUSING NEAR COMPLETE OBSTRUCTION. A VERY SMALL AMOUNT CONTRAST DOES REACH THE DESCENDING COLON. RECTUM AND RECTOSIGMOID JUNCTION APPEARS NORMAL. MODERATE AIR AND FLUID-FILLED DILATATION OF THE REMAINDER OF THE COLON DUE TO OBSTRUCTION. Venous Doppler Study 05/11/19 00:00 IMPRESSION: LIMITED STUDY. NO EVIDENCE DVT OR SVT IN EITHER LEG. Abdomen Ultrasound 05/13/19 00:00 IMPRESSION: 1. Increased echogenicity of hepatic parenchyma suggestive of hepatic steatosis. 2. Cholelithiasis without other associated ancillary findings to indicate an acute cholecystitis. Assessment & Plan - Diagnosis (1) Hyponatremia Is this a current diagnosis for this admission?: Yes Plan: looks to be a mix from anasarca caused by the low albumin, high free water intake and possibly worsened by previous high output from the ostemy bag. Will look to continue IV furosemide and fluid restriction. Stop the salt tablet. Give albumin prior to giving IV furosemide. reassess in the AM (2) Anasarca Is this a current diagnosis for this admission?: Yes Plan: looks to be due to a low albumin possible from decreased liver function and/or poor intake of food. Will look to stop the salt tablet, continue IV furosemide, give IV albumin 1 hour prior to giving furosemide. Discussed with her the need to increase protein intake. (3) Anemia Qualifiers: Anemia type: other cause Other causes of anemia: acute posthemorrhagic Qualified Code(s): D62 - Acute posthemorrhagic anemia Is this a current diagnosis for this admission?: Yes Plan: per hematology (4) Abdominal pain Qualifiers: Abdominal location: generalized Qualified Code(s): R10.84 - Generalized abdominal pain Is this a current diagnosis for this admission?: Yes Plan: per surgery, looks to have resolved (5) Bowel obstruction Is this a current diagnosis for this admission?: Yes Plan: resolved (6) Colonic mass Is this a current diagnosis for this admission?: Yes Plan: see hematology and general surgeries notes
[2019-05-18 01:15] LABS: HEMATOCRIT 25.7 % (36.0-47.0); HEMOGLOBIN 8.9 g/dL (12.0-15.5); MEAN CORPUSCULAR HEMOGLOBIN 29.8 pg (27.0-33.4); MEAN CORPUSCULAR HGB CONC 34.7 g/dL (32.0-36.0); PLATELET COUNT 226 10^3/uL (150-450); RED BLOOD COUNT 2.99 10^6/uL (3.72-5.28); WHITE BLOOD COUNT 5.2 10^3/uL (4.0-10.5)
[2019-05-18 01:16] LABS: MEAN CORPUSCULAR VOLUME 86 fl (80-97)
[2019-05-18] MEDS: GUAIFENESIN/CODEINE PHOS 100-10 MG/ 5 ML UDC PO PRN ×3 (04:20→21:13)
[2019-05-18 05:55] LABS: HEMATOCRIT 27.6 % (36.0-47.0); HEMOGLOBIN 9.5 g/dL (12.0-15.5); MEAN CORPUSCULAR HEMOGLOBIN 29.7 pg (27.0-33.4); MEAN CORPUSCULAR HGB CONC 34.4 g/dL (32.0-36.0); MEAN CORPUSCULAR VOLUME 86 fl (80-97); PLATELET COUNT 241 10^3/uL (150-450); RED BLOOD COUNT 3.19 10^6/uL (3.72-5.28); RED CELL DISTRIBUTION WIDTH 17.6 % (11.5-14.0); WHITE BLOOD COUNT 5.4 10^3/uL (4.0-10.5)
[2019-05-18] MEDS: OXYCODONE HCL IR 5 MG TABLET PO PRN ×3 (06:17→17:51)
[2019-05-18 06:24] LABS: BLOOD UREA NITROGEN 8 mg/dL (7-20); CALCIUM 7.5 mg/dL (8.4-10.2); GLUCOSE 84 mg/dL (75-110); POTASSIUM 4.4 mmol/L (3.6-5.0)
[2019-05-18 07:04] LABS: ANION GAP 6 (5-19); CARBON DIOXIDE 30 mmol/L (22-30); CHLORIDE 93 mmol/L (98-107)
--- NOTE | 2019-05-18 08:20 | PDOC PROGRESS REPORT ---
Subjective Progress Note for:: 05/18/19 Subjective:: Patient feeling better after blood Reason For Visit: COLON OBSTRUCTION,HYPONATREMIA,ANASARCA Physical Exam Vital Signs: Temp Pulse Resp BP Pulse Ox 97.9 F 83 20 121/73 99 05/18/19 03:59 05/18/19 03:59 05/18/19 03:59 05/18/19 03:59 05/18/19 03:59 Intake & Output 05/17/19 05/18/19 05/19/19 06:59 06:59 06:59 Intake Total 1612 2206 Output Total 2700 2900 Balance -1088 -694 Weight 90 kg 89.8 kg General appearance: PRESENT: no acute distress, well-developed, well-nourished Head exam: PRESENT: atraumatic, normocephalic Eye exam: PRESENT: conjunctiva pink, EOMI, PERRLA. ABSENT: scleral icterus Ear exam: PRESENT: normal external ear exam Mouth exam: PRESENT: moist, tongue midline Neck exam: ABSENT: carotid bruit, JVD, lymphadenopathy, thyromegaly Respiratory exam: PRESENT: clear to auscultation young. ABSENT: rales, rhonchi, wheezes Cardiovascular exam: PRESENT: RRR. ABSENT: diastolic murmur, rubs, systolic murmur Pulses: PRESENT: normal dorsalis pedis pul Vascular exam: PRESENT: normal capillary refill GI/Abdominal exam: PRESENT: normal bowel sounds, soft. ABSENT: distended, guarding, mass, organolmegaly, rebound, tenderness Rectal exam: PRESENT: deferred Extremities exam: PRESENT: full ROM. ABSENT: calf tenderness, clubbing, pedal edema Neurological exam: PRESENT: alert, awake, oriented to person, oriented to place, oriented to time, oriented to situation, CN II-XII grossly intact. ABSENT: motor sensory deficit Psychiatric exam: PRESENT: appropriate affect, normal mood. ABSENT: homicidal ideation, suicidal ideation Skin exam: PRESENT: dry, intact, warm. ABSENT: cyanosis, rash Results Laboratory Results: 05/18/19 05:31 05/18/19 05:31 05/17/19 05/17/19 05/18/19 04:04 12:40 00:50 WBC 5.2 RBC 2.99 L Hgb 8.9 L D Hct 25.7 L MCV 86 D MCH 29.8 MCHC 34.7 RDW 17.0 H Plt Count 226 Retic Count (auto) 3.90 H Sodium Potassium Chloride Carbon Dioxide Anion Gap BUN Creatinine Est GFR ( Amer) Glucose Calcium Magnesium Blood Type O NEGATIVE Antibody Screen NEGATIVE 05/18/19 05/18/19 05:31 05:31 WBC 5.4 RBC 3.19 L Hgb 9.5 L Hct 27.6 L MCV 86 MCH 29.7 MCHC 34.4 RDW 17.6 H Plt Count 241 Retic Count (auto) Sodium 128.9 L Potassium 4.4 Chloride 93 L Carbon Dioxide 30 Anion Gap 6 BUN 8 Creatinine 0.28 L Est GFR ( Amer) > 60 Glucose 84 Calcium 7.5 L Magnesium 2.1 Blood Type Antibody Screen 05/05/19 14:40 NT-Pro-B Natriuret Pep 183 H Impressions: Acute Abdomen Series 05/05/19 17:05 IMPRESSION: Persistent dilated colon with mild small-bowel distention. KUB X-Ray 05/05/19 19:06 IMPRESSION: The NG tube is about 5 cm inside the stomach. Barium Enema 05/06/19 00:00 IMPRESSION: SUGGESTED MASS WITHIN THE MID SIGMOID COLON CAUSING NEAR COMPLETE OBSTRUCTION. A VERY SMALL AMOUNT CONTRAST DOES REACH THE DESCENDING COLON. RECTUM AND RECTOSIGMOID JUNCTION APPEARS NORMAL. MODERATE AIR AND FLUID-FILLED DILATATION OF THE REMAINDER OF THE COLON DUE TO OBSTRUCTION. Venous Doppler Study 05/11/19 00:00 IMPRESSION: LIMITED STUDY. NO EVIDENCE DVT OR SVT IN EITHER LEG. Abdomen Ultrasound 05/13/19 00:00 IMPRESSION: 1. Increased echogenicity of hepatic parenchyma suggestive of hepatic steatosis. 2. Cholelithiasis without other associated ancillary findings to indicate an acute cholecystitis. Assessment & Plan - Diagnosis (1) Anemia Qualifiers: Anemia type: other cause Other causes of anemia: acute posthemorrhagic Qualified Code(s): D62 - Acute posthemorrhagic anemia Is this a current diagnosis for this admission?: Yes Plan: We did iron studies and B12 levels she was folate deficient, but probably there was some blood loss due to the colonic stricture and some blood loss from the surgery, stool occult was negative, do not believe after surgery that there was much bleeding. Agreed with giving 2 units and she responded went very well, we will need to recheck her hemoglobin in about 2 to 3 weeks time post discharge. - Time Time Spent with patient: 35 or more minutes
[2019-05-18] MEDS: POTASSIUM CHLORIDE 10 MEQ TABLET.ER PO SCH ×3 (10:14→17:26)
[2019-05-18] MEDS: FERROUS SULFATE 325 MG TABLET PO SCH (10:14)
[2019-05-18] MEDS: FAMOTIDINE 20 MG TABLET PO SCH ×2 (10:14→21:13)
[2019-05-18] MEDS: FUROSEMIDE INJ/PF 40 MG/4 ML SDV IV SCH (10:14)
[2019-05-18] MEDS: FOLIC ACID 1 MG TABLET PO SCH (10:14)
[2019-05-18] MEDS: MAGNESIUM OXIDE 400 MG TABLET PO SCH ×2 (10:15→17:26)
[2019-05-18] MEDS: ALBUMIN HUMAN 12.5 GM/50 ML RTUINJ IV SCH (10:15)
--- NOTE | 2019-05-18 13:05 | PDOC PROGRESS REPORT ---
Subjective Progress Note for:: 05/18/19 Subjective:: Patient was seen sitting up in her chair eating lunch. She was doing well today. She is wanting to get out of the hospital soon. Denies chest pain, SOB, nausea, vomiting. She claims that her colostomy bag had less output then the past few day. Reason For Visit: COLON OBSTRUCTION,HYPONATREMIA,ANASARCA Physical Exam Vital Signs: Temp Pulse Resp BP Pulse Ox 97.5 F 93 20 95/65 L 100 05/18/19 12:00 05/18/19 12:00 05/18/19 12:00 05/18/19 12:00 05/18/19 12:00 Intake & Output 05/17/19 05/18/19 05/19/19 06:59 06:59 06:59 Intake Total 1612 2206 356 Output Total 2700 2900 1100 Balance -1088 -694 -744 Weight 90 kg 89.8 kg General appearance: PRESENT: no acute distress, well-developed, well-nourished Mouth exam: PRESENT: moist, neck supple Neck exam: ABSENT: JVD, tracheal deviation Respiratory exam: PRESENT: clear to auscultation young. ABSENT: accessory muscle use, crackles, rales, rhonchi, wheezes Cardiovascular exam: PRESENT: RRR, +S1, +S2 GI/Abdominal exam: PRESENT: tenderness. ABSENT: distended Extremities exam: PRESENT: pedal edema, +2 edema. ABSENT: tenderness Musculoskeletal exam: PRESENT: normal inspection. ABSENT: tenderness Neurological exam: PRESENT: alert, awake, oriented to person, oriented to place, oriented to time, oriented to situation Skin exam: PRESENT: dry, intact, warm. ABSENT: cyanosis Results Laboratory Results: 05/18/19 05:31 05/18/19 05:31 05/17/19 05/18/19 05/18/19 12:40 00:50 05:31 WBC 5.2 5.4 RBC 2.99 L 3.19 L Hgb 8.9 L D 9.5 L Hct 25.7 L 27.6 L MCV 86 D 86 MCH 29.8 29.7 MCHC 34.7 34.4 RDW 17.0 H 17.6 H Plt Count 226 241 Sodium Potassium Chloride Carbon Dioxide Anion Gap BUN Creatinine Est GFR ( Amer) Glucose Calcium Magnesium Blood Type O NEGATIVE Antibody Screen NEGATIVE 05/18/19 05:31 WBC RBC Hgb Hct MCV MCH MCHC RDW Plt Count Sodium 128.9 L Potassium 4.4 Chloride 93 L Carbon Dioxide 30 Anion Gap 6 BUN 8 Creatinine 0.28 L Est GFR ( Amer) > 60 Glucose 84 Calcium 7.5 L Magnesium 2.1 Blood Type Antibody Screen 05/05/19 14:40 NT-Pro-B Natriuret Pep 183 H Impressions: Acute Abdomen Series 05/05/19 17:05 IMPRESSION: Persistent dilated colon with mild small-bowel distention. KUB X-Ray 05/05/19 19:06 IMPRESSION: The NG tube is about 5 cm inside the stomach. Barium Enema 05/06/19 00:00 IMPRESSION: SUGGESTED MASS WITHIN THE MID SIGMOID COLON CAUSING NEAR COMPLETE OBSTRUCTION. A VERY SMALL AMOUNT CONTRAST DOES REACH THE DESCENDING COLON. RECTUM AND RECTOSIGMOID JUNCTION APPEARS NORMAL. MODERATE AIR AND FLUID-FILLED DILATATION OF THE REMAINDER OF THE COLON DUE TO OBSTRUCTION. Venous Doppler Study 05/11/19 00:00 IMPRESSION: LIMITED STUDY. NO EVIDENCE DVT OR SVT IN EITHER LEG. Abdomen Ultrasound 05/13/19 00:00 IMPRESSION: 1. Increased echogenicity of hepatic parenchyma suggestive of hepatic steatosis. 2. Cholelithiasis without other associated ancillary findings to indicate an acute cholecystitis. Assessment & Plan - Diagnosis (1) Hyponatremia Is this a current diagnosis for this admission?: Yes Plan: Just restarted furosemide and started albumin today. Fluid restriction needs to be decreased closer to 1L. Depending on her bp, I may look to give a second dose of furosemide later this afternoon. If sodium improves to the 130s tomorrow, then it may be possible for her to be discharged on furosemide and follow up in 1 week in my office. (2) Anasarca Is this a current diagnosis for this admission?: Yes Plan: giving furosemide and albumin (3) Anemia Qualifiers: Anemia type: other cause Other causes of anemia: acute posthemorrhagic Qualified Code(s): D62 - Acute posthemorrhagic anemia Is this a current diagnosis for this admission?: Yes Plan: per hematology (4) Abdominal pain Qualifiers: Abdominal location: generalized Qualified Code(s): R10.84 - Generalized abdominal pain Is this a current diagnosis for this admission?: Yes Plan: resolved (5) Bowel obstruction Is this a current diagnosis for this admission?: Yes Plan: per surgery (6) Colonic mass Is this a current diagnosis for this admission?: Yes Plan: per surgery
--- NOTE | 2019-05-18 14:38 | PDOC PROGRESS REPORT ---
Subjective Progress Note for:: 05/18/19 Subjective:: 05/11/2019. No acute events overnight. Patient comfortably resting in bed in no apparent distress. Tolerating diet. Denies any abdominal pain. Ostomy functioning well. Still complaining of bilateral lower extremity edema and weakness. 05/12/2019. No acute events overnight. Patient was very upset about the amount of fluid and type of food that she had. Her last 24 hours otherwise denies any fever, chills, nausea, vomiting, diarrhea, on or any urinary symptoms. Ostomy site is patent. Patient reporting adequate ostomy output. Bilateral lower extremity swelling are improving, patient is stating that she is now able to move her bilateral lower extremity compared to yesterday. Still not able to ambulate independently. 05/13/2019. Patient was noted to have a drop in her hemoglobin from 11-7.5, hemoglobin was repeated and again it was found to be low. It was planned by boatbuilder wood to give 2 PRBC transfusions however patient is very upset about trans fusion and does not want to receive any transfusion as she does not believe that she is bleeding, as she does not see any obvious source of bleeding, she is also saying that she is not symptomatic would like to hold transfusion until abdominal ultrasound results are back. Otherwise patient is p.o. tolerant, denies any fever, chills, nausea, vomiting, diarrhea, constipation or any urinary symptoms. Lower extremity edema or improving and patient is able to ambulate well but better than yesterday. 05/14/2019. No acute events overnight. Patient is complaining of generalized weakness otherwise p.o. tolerant and having adequate output from her ostomy, denies any fever, chills, nausea, vomiting, diarrhea, constipation or any urinary symptoms. Lower extremity edema improving. Was able to walk in the hallways yesterday. Had an extensive conversation regarding her hepatic steatosis patient does mention that she used to be a heavy alcoholic but she has stopped for several years. 05/15/2019. Patient thinks she is coming with the flu, complaining of persistent abdominal pain causing her abdomen to hurt, otherwise denies any fever, chills, nausea, vomiting, diarrhea, or any urinary symptoms. Reporting adequate ostomy output, denies any nosebleeds, hematemesis, hemoptysis, hematuria or any bloody output from ostomy. 05/16/2019. No acute events overnight. Cough is improving since being started on Robitussin, reporting improvement of lower extremity edema, able to walk with assistance, denies any fever, chills, nausea, vomiting, diarrhea. Reports adequate output from ostomy. Denies melena or hematochezia. 05/17/2019. No acute events overnight. Denies any fever, chills, nausea, vomiting, diarrhea, constipation or any urinary symptoms. Reporting adequate ostomy output with no melena or blood. Unfortunately patient's hemoglobin is still dropping with no obvious sign of bleeding. Has been evaluated by surgery who think that patient is unlikely to be having any GI bleed, hematology is on board and recommending LDH to rule out any hemolysis. After much discussion patient has agreed to receive PRBC transfusion today. 05/18/2019. No acute events overnight. Comfortably sitting with no apparent distress, stating that she is feeling better than yesterday, p.o. tolerant, reports low ostomy output compared to yesterday , lower extremity edema improving, able to ambulate out of bed, denies any fever, chills, nausea, vomiting, or any urinary symptoms. Reason For Visit: COLON OBSTRUCTION,HYPONATREMIA,ANASARCA Physical Exam Vital Signs: Temp Pulse Resp BP Pulse Ox 97.5 F 93 20 95/65 L 100 05/18/19 12:00 05/18/19 12:00 05/18/19 12:00 05/18/19 12:00 05/18/19 12:00 Intake & Output 05/17/19 05/18/19 05/19/19 06:59 06:59 06:59 Intake Total 1612 2206 356 Output Total 2700 2900 1100 Balance -1088 -694 -744 Weight 90 kg 89.8 kg General appearance: PRESENT: no acute distress, well-developed, well-nourished Head exam: PRESENT: atraumatic, normocephalic Respiratory exam: PRESENT: clear to auscultation young. ABSENT: rales, rhonchi, wheezes Cardiovascular exam: PRESENT: RRR. ABSENT: diastolic murmur, rubs, systolic murmur GI/Abdominal exam: PRESENT: normal bowel sounds, soft, other - Ostomy patent.. ABSENT: distended, guarding, mass, organolmegaly, rebound, tenderness Neurological exam: PRESENT: alert, awake, oriented to person, oriented to place, oriented to time, oriented to situation, CN II-XII grossly intact. ABSENT: motor sensory deficit Skin exam: PRESENT: dry, intact, warm. ABSENT: cyanosis, rash Results Laboratory Results: 05/18/19 05:31 05/18/19 05:31 05/17/19 05/18/19 05/18/19 12:40 00:50 05:31 WBC 5.2 5.4 RBC 2.99 L 3.19 L Hgb 8.9 L D 9.5 L Hct 25.7 L 27.6 L MCV 86 D 86 MCH 29.8 29.7 MCHC 34.7 34.4 RDW 17.0 H 17.6 H Plt Count 226 241 Sodium Potassium Chloride Carbon Dioxide Anion Gap BUN Creatinine Est GFR ( Amer) Glucose Calcium Magnesium Blood Type O NEGATIVE Antibody Screen NEGATIVE 05/18/19 05:31 WBC RBC Hgb Hct MCV MCH MCHC RDW Plt Count Sodium 128.9 L Potassium 4.4 Chloride 93 L Carbon Dioxide 30 Anion Gap 6 BUN 8 Creatinine 0.28 L Est GFR ( Amer) > 60 Glucose 84 Calcium 7.5 L Magnesium 2.1 Blood Type Antibody Screen 05/05/19 14:40 NT-Pro-B Natriuret Pep 183 H Impressions: Acute Abdomen Series 05/05/19 17:05 IMPRESSION: Persistent dilated colon with mild small-bowel distention. KUB X-Ray 05/05/19 19:06 IMPRESSION: The NG tube is about 5 cm inside the stomach. Barium Enema 05/06/19 00:00 IMPRESSION: SUGGESTED MASS WITHIN THE MID SIGMOID COLON CAUSING NEAR COMPLETE OBSTRUCTION. A VERY SMALL AMOUNT CONTRAST DOES REACH THE DESCENDING COLON. RECTUM AND RECTOSIGMOID JUNCTION APPEARS NORMAL. MODERATE AIR AND FLUID-FILLED DILATATION OF THE REMAINDER OF THE COLON DUE TO OBSTRUCTION. Venous Doppler Study 05/11/19 00:00 IMPRESSION: LIMITED STUDY. NO EVIDENCE DVT OR SVT IN EITHER LEG. Abdomen Ultrasound 05/13/19 00:00 IMPRESSION: 1. Increased echogenicity of hepatic parenchyma suggestive of hepatic steatosis. 2. Cholelithiasis without other associated ancillary findings to indicate an acute cholecystitis. Assessment and Plan - Diagnosis (1) Hyponatremia Is this a current diagnosis for this admission?: Yes Plan: Unfortunately sodium is dropping today. Denies any history of hyponatremia however noted to be hyponatremic on admission. Previous labs available. Multifactorial. 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 Given the fact that patient is hypervolemic due to underlying hepatic steatosis/cirrhosis starting on NS or hypertonic saline will only worsen volume status. Received 1 dose of tolvaptan on 05/15/2019. Urine sodium 7. DC SSRIs and PPIs. Nephrology consulted for recommendation is to hold sodium bicarbonate supplement and continue fluid restriction and IV Lasix. (2) Anemia Qualifiers: Anemia type: other cause Other causes of anemia: acute posthemorrhagic Qualified Code(s): D62 - Acute posthemorrhagic anemia Is this a current diagnosis for this admission?: Yes Plan: H&H stable since transfusion. No obvious sign of bleeding. Multifactorial. Combination of posthemorrhagic anemia, folic acid deficiency liver cirrhosis and anemia of chronic disease. Hemoglobin on admission 14.9. Folic acid 2.67. B12 399. Iron 40.6. Denies any nosebleeds, hematemesis, hemoptysis, hematuria, vaginal bleed, or blo santo stool. Has been reevaluated by surgery and as per their observation patient may not be having any acute GI bleed. Discussed case with hematology recommendation is to order LDH to rule out any hemolysis. Abdominal ultrasound no acute findings. Patient has been refusing PRBC transfusions sating that "she does not want anybody else with blood in her body.", but after much discussion patient has agreed to receive 2 PRBC transfusion today. Status post 2 PRBC transfusion on 05/17/2019. (3) Bowel obstruction Is this a current diagnosis for this admission?: Yes Plan: Due to bowel stricture. Day 9 status post exploratory laparotomy, sigmoid colectomy and diverting colostomy. Tissue biopsy negative for any malignancy. Ostomy patent. Tolerating feeds. Surgery on board. Recommendations noted. (4) Obesity Qualifiers: Body mass index: BMI 40.0-44.9 Is this a current diagnosis for this admission?: Yes Plan: TSH WNL. Diet and lifestyle modification recommended. (5) Anasarca Is this a current diagnosis for this admission?: Yes Plan: Moderate improvement. Likely due to underlying alcoholic hepatic steatosis/cirrhosis. Patient endorses history of heavy alcoholism but currently she is abstinent for several years. Denies any history of CAD, cirrhosis or CKD. proBNP WNL. Kidney function WNL. BLE Venous Doppler negative for DVT Likely due to poor venous return and low albumin state and undiagnosed cirrhosis. CT abdomen positive for steatohepatitis but denies any history of cirrhosis. Abdominal ultrasound is positive for hepatic steatosis. Bilateral lower extremity edema improving. Continue bilateral lower extremity elevation and compression stocking. Resume Lasix once daily. (6) Steatohepatitis Is this a current diagnosis for this admission?: Yes Plan: Patient endorses history of heavy alcohol abuse in the past. Has been abstinent for several years. Denies any history of cirrhosis. Likely due alcoholism or NAFLD/autoimmune hepatitis. Patient has a stigmata of liver cirrhosis. CT and abdominal ultrasound was positive for hepatic steatosis. Patient is thrombocytopenic, low albumin state and anemia which could all be due to underlying undiagnosed hepatic cirrhosis. Viral hepatitis panel negative. Pending serum copper, alpha-1 antitrypsin level, antimitochondrial antibody, anti-smooth muscle antibody, antinuclear antibody. Unfortunately no GI consult available until next Friday. Outpatient PCP and GI follow-up. (7) UTI (urinary tract infection) Qualifiers: Urinary tract infection type: acute cystitis Is this a current diagnosis for this admission?: Yes Plan: Due to E. coli. Pansensitive. Completed a course of antibiotics. Dong koch. (8) Hypokalemia Is this a current diagnosis for this admission?: Yes Plan: Resolved. Likely due to GI losses. No acute EKG changes. Continue supplemental potassium. Potassium level tomorrow. (9) Hypomagnesemia Is this a current diagnosis for this admission?: Yes Plan: Resolved. Most likely due to GI losses. Continue daily replacement. Magnesium level tomorrow.
[2019-05-19] MEDS: OXYCODONE HCL IR 5 MG TABLET PO PRN (03:08)
[2019-05-19 04:48] LABS: HEMATOCRIT 27.4 % (36.0-47.0); HEMOGLOBIN 9.5 g/dL (12.0-15.5); MEAN CORPUSCULAR HGB CONC 34.8 g/dL (32.0-36.0); MEAN CORPUSCULAR VOLUME 86 fl (80-97); PLATELET COUNT 239 10^3/uL (150-450); RED BLOOD COUNT 3.17 10^6/uL (3.72-5.28); RED CELL DISTRIBUTION WIDTH 17.5 % (11.5-14.0); WHITE BLOOD COUNT 4.6 10^3/uL (4.0-10.5)
[2019-05-19 05:06] LABS: ALBUMIN 2.4 g/dL (3.5-5.0); ALKALINE PHOSPHATASE 77 U/L (38-126); ANION GAP 5 (5-19); ASPARTATE AMINO TRANSFERASE 27 U/L (14-36); BILIRUBIN,DIRECT 0.2 mg/dL (0.0-0.4); BILIRUBIN,TOTAL 0.7 mg/dL (0.2-1.3); BLOOD UREA NITROGEN 7 mg/dL (7-20); CALCIUM 7.7 mg/dL (8.4-10.2); CARBON DIOXIDE 29 mmol/L (22-30); CHLORIDE 95 mmol/L (98-107); GLUCOSE 90 mg/dL (75-110); POTASSIUM 3.7 mmol/L (3.6-5.0); TOTAL PROTEIN 5.1 g/dL (6.3-8.2)
--- NOTE | 2019-05-19 09:05 | PDOC PROGRESS REPORT ---
Subjective Progress Note for:: 05/19/19 Subjective:: Patient was laying in bed this morning. At the time she was happy and had no concerns. She is ready to get out of the hospital. She is following the 1L water restriction closer. No chest pain, SOB, n/v/d/c. She did notice the swelling in her legs go down. She produced 2100 of urine yesterday. Reason For Visit: COLON OBSTRUCTION,HYPONATREMIA,ANASARCA Physical Exam Vital Signs: Temp Pulse Resp BP Pulse Ox 97.6 F 78 16 118/82 99 05/19/19 03:13 05/19/19 07:00 05/19/19 03:13 05/19/19 03:13 05/19/19 03:13 Intake & Output 05/18/19 05/19/19 05/20/19 06:59 06:59 06:59 Intake Total 2206 766 Output Total 2900 2100 Balance -694 -1334 Weight 89.8 kg 87.8 kg Cardiovascular exam: PRESENT: RRR, +S1, +S2 GI/Abdominal exam: PRESENT: tenderness. ABSENT: distended Results Laboratory Results: 05/19/19 04:30 05/19/19 04:30 05/19/19 05/19/19 04:30 04:30 WBC 4.6 RBC 3.17 L Hgb 9.5 L Hct 27.4 L MCV 86 MCH 30.0 MCHC 34.8 RDW 17.5 H Plt Count 239 Sodium 129.0 L Potassium 3.7 Chloride 95 L Carbon Dioxide 29 Anion Gap 5 BUN 7 Creatinine 0.26 L Est GFR ( Amer) > 60 Glucose 90 Calcium 7.7 L Magnesium 2.2 Total Bilirubin 0.7 AST 27 Alkaline Phosphatase 77 Total Protein 5.1 L Albumin 2.4 L 05/05/19 14:40 NT-Pro-B Natriuret Pep 183 H Impressions: Acute Abdomen Series 05/05/19 17:05 IMPRESSION: Persistent dilated colon with mild small-bowel distention. KUB X-Ray 05/05/19 19:06 IMPRESSION: The NG tube is about 5 cm inside the stomach. Barium Enema 05/06/19 00:00 IMPRESSION: SUGGESTED MASS WITHIN THE MID SIGMOID COLON CAUSING NEAR COMPLETE OBSTRUCTION. A VERY SMALL AMOUNT CONTRAST DOES REACH THE DESCENDING COLON. RECTUM AND RECTOSIGMOID JUNCTION APPEARS NORMAL. MODERATE AIR AND FLUID-FILLED DILATATION OF THE REMAINDER OF THE COLON DUE TO OBSTRUCTION. Venous Doppler Study 05/11/19 00:00 IMPRESSION: LIMITED STUDY. NO EVIDENCE DVT OR SVT IN EITHER LEG. Abdomen Ultrasound 05/13/19 00:00 IMPRESSION: 1. Increased echogenicity of hepatic parenchyma suggestive of hepatic steatosis. 2. Cholelithiasis without other associated ancillary findings to indicate an acute cholecystitis. Assessment & Plan - Diagnosis (1) Hyponatremia Is this a current diagnosis for this admission?: Yes Plan: At this point the patient is stable for discharge. Discussed with her the need to stick as close to the 1L water restriction as possible or she would end up back in the hospital. Will look to have her discharged with 40mg of furosemide PO BID and follow up me in a week with labs in my office. (2) Anasarca Is this a current diagnosis for this admission?: Yes Plan: looks to be improving, will discharge her with furosemide 40mg BID (3) Anemia Qualifiers: Anemia type: other cause Other causes of anemia: acute posthemorrhagic Qualified Code(s): D62 - Acute posthemorrhagic anemia Is this a current diagnosis for this admission?: Yes Plan: looks to be improving (4) Abdominal pain Qualifiers: Abdominal location: generalized Qualified Code(s): R10.84 - Generalized abdominal pain Is this a current diagnosis for this admission?: Yes Plan: resolved (5) Bowel obstruction Is this a current diagnosis for this admission?: Yes Plan: resolved (6) Colonic mass Is this a current diagnosis for this admission?: Yes - Notes Notes: Case was discussed with Dr. Washburn.
[2019-05-19] MEDS: FUROSEMIDE INJ/PF 40 MG/4 ML SDV IV SCH (10:25)
[2019-05-19] MEDS: FAMOTIDINE 20 MG TABLET PO SCH (10:25)
[2019-05-19] MEDS: MAGNESIUM OXIDE 400 MG TABLET PO SCH (10:25)
[2019-05-19] MEDS: POTASSIUM CHLORIDE 10 MEQ TABLET.ER PO SCH (10:25)
[2019-05-19] MEDS: FOLIC ACID 1 MG TABLET PO SCH (10:25)
[2019-05-19] MEDS: FERROUS SULFATE 325 MG TABLET PO SCH (10:25)
[2019-05-19] MEDS: ALBUMIN HUMAN 12.5 GM/50 ML RTUINJ IV SCH (10:26)
[2019-05-19] MEDS: GUAIFENESIN/CODEINE PHOS 100-10 MG/ 5 ML UDC PO PRN (10:36)
[2019-05-19 11:47] VITALS: BP 106/71
--- NOTE | 2019-05-20 15:12 | PDOC DISCHARGE SUMMARY ---
Impression - Admit/DC Date/PCP Admission Date/Primary Care Provider: 05/05/19 19:22 Discharge Date: 05/19/19 - Discharge Diagnosis (1) Hyponatremia Is this a current diagnosis for this admission?: Yes (2) Anemia Is this a current diagnosis for this admission?: Yes (3) Bowel obstruction Is this a current diagnosis for this admission?: Yes (4) Obesity Is this a current diagnosis for this admission?: Yes (5) Anasarca Is this a current diagnosis for this admission?: Yes (6) Steatohepatitis Is this a current diagnosis for this admission?: Yes (7) UTI (urinary tract infection) Is this a current diagnosis for this admission?: Yes (8) Hypokalemia Is this a current diagnosis for this admission?: Yes (9) Hypomagnesemia Is this a current diagnosis for this admission?: Yes - Additional Information Resuscitation Status: Full Code Discharge Diet: As Tolerated, Other (Comments) Discharge Activity: Activity As Tolerated, Balance Activity w/Rest, Keep Legs Elevated Referrals: RASHAWN ACOSTA MD [ACTIVE STAFF] - 05/31/19 8:00 am TAWANA THOMAS MD [ACTIVE STAFF] - (Spoke to Nae at office. Patients records sent. Nae stated that they will call patient with appointment time and date.) MONIQUE MAX MD [ACTIVE STAFF] - 06/16/19 9:45 am EMELINA CARDOSO MD [ACTIVE STAFF] - 05/27/19 2:30 pm HORACE DELVALLE MD [ACTIVE STAFF] - Prescriptions: Ferrous Sulfate 325 mg PO DAILY 30 Days #30 tablet. Furosemide [Lasix 40 mg Tablet] 40 mg PO BID 14 Days #28 tablet Magnesium Oxide [Mag-Oxide Magnesium] 400 mg PO BID 14 Days #56 tablet Potassium Chloride 30 meq PO BID 14 Days #42 tab.er.prt Home Medications: Ferrous Sulfate 325 mg PO DAILY 30 Days #30 tablet. 05/19/19 Furosemide [Lasix 40 mg Tablet] 40 mg PO BID 14 Days #28 tablet 05/19/19 Magnesium Oxide [Mag-Oxide Magnesium] 400 mg PO BID 14 Days #56 tablet 05/19/19 Potassium Chloride 30 meq PO BID 14 Days #42 tab.er.prt 03/04/20 History of Present Illiness History of Present Illness: as per admitting physician note JIM VICK is a 58 year old female with no significant past medical history. She states that approximately 7 weeks ago she became very sick with nausea, vomiting and diarrhea. At that time she experienced abdominal bloating. Since that time, she reports that her bowels have not been the same. She has difficulty with oral intake. She has experienced vomiting typically after no bowel movement for several days. She states that fleets enema provided little relief. Approximately 1 week ago she began to notice increased fluid retention in her legs. She states that she has not seen this much swelling since her 30 years ago. She states that she was given an enema on Friday in the emergency department and had a small bowel movement but nothing since. She has noted increased abdominal distention with bloating and crampy abdominal pain. She reports feeling lightheaded when she stands up. She has tried multiple preparations but most [id number] treatments only cause increased crampy pain, increased abdominal distention and increased acid reflux. She reports not having had any significant food intake for several weeks. She tries to drink lots of fluids but ends up vomiting them back up. She has noticed that over the past 2 weeks her urine output slowly decreased and over the last week the urine has been very dark and appears to be thick. She reports some difficulty initiating urination and sometimes has to run the water in the sink to try and get her to urinate. She denies any significant past medical history. A CT scan obtained on the ER visit Friday showed distended colon with possible narrowing in the sigmoid colon. There were unable to provide any further detail but stricture versus malignancy are possibilities. She was noted to have diverticula in the duodenum. Fatty infiltration of the liver was noted as well as multiple hepatic cysts. A gallstone was identified in the gallbladder and the gallbladder was distended. Anasarca was noted in the subcutaneous abdominal tissue there are 2 adjacent infraumbilical anterior abdominal wall hernias. The contents are mostly fluid and adipose tissue. There is no bowel within either of them. Small amount of free fluid is noted in the pelvis. An acute abdominal series obtained today shows clear lungs with no evidence of infiltrate. No free air in the abdomen. Still with dilated colon and scattered air-fluid levels on the upright view. Now there is mild small bowel distention. Laboratory studies reveal a serum sodium of 123.7 with a chloride of 86. Serum potassium was normal as was the serum creatinine. BUN was minimally elevated at 24. The total bilirubin was 1.3 and her albumin was only 2.4. Transaminases were unremarkable. Brain natruretic peptide was only 183. The patient was assessed by Dr. Richardson. I have ordered a consult. The patient will be admitted to the hospitalist service. Hospital Course Hospital Course: (1) Hyponatremia Persistent hyponatremia. Denies any history of hyponatremia however noted to be hyponatremic on admission. Previous labs available. Multifactorial. 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 Given the fact that patient is hypervolemic due to underlying hepatic steatosis/cirrhosis starting on NS or hypertonic saline will only worsen volume status. Received 1 dose of tolvaptan on 05/15/2019. Urine sodium 7. DC SSRIs and PPIs. Collagen was consulted. Recommendation was to DC 6 over the sodium bicarbonate and continue fluid restriction and IV Lasix. Unfortunately day of discharge sodium is still not optimized and nephrology was consulted and as per the recommendation was okay to DC patient on Lasix 40 mg p.o. twice daily and follow-up in a week at the nephrology clinic for evaluation of sodium level. An appointment was obtained for patient to see nephrology as outpatient. Patient was advised to follow-up. Voiced understanding. (2) Anemia No obvious sign of bleeding. H&H remained stable after 2 PRBC transfusions. Multifactorial. Combination of posthemorrhagic anemia, folic acid deficiency liver cirrhosis and anemia of chronic disease. Hemoglobin on admission 14.9. Folic acid 2.67. B12 399. Iron 40.6. Denied any nosebleeds, hematemesis, hemoptysis, hematuria, vaginal bleed, or bloody stool. Was reevaluated by surgery and as per their observation patient may not be having any acute GI bleed. Discussed case with hematology recommendation is to order LDH to rule out any hemolysis. Abdominal ultrasound no acute findings. Patient was transfused 2 PRBC. H&H remained stable the following day. No sign of bleeding. Patient was discharged on supplemental ferrous sulfate and was advised to follow-up with Dr. Max as outpatient. An appointment was obtained for her. (3) Bowel obstruction Due to bowel stricture. Day 9 status post exploratory laparotomy, sigmoid colectomy and diverting colostomy. Tissue biopsy negative for any malignancy. Ostomy patent. Tolerating feeds. Surgery was on board. Recommendations noted. Ostomy patent and without discharge. Adequate ostomy output. No sign of infection. Patient was advised to follow-up with surgery clinic as outpatient. An appointment was obtained. Patient voiced understanding. (4) Obesity TSH WNL. Diet and lifestyle modification recommended. (5) Anasarca Moderate improvement since being started on IV Lasix and fluid restriction. Likely due to underlying alcoholic hepatic steatosis/cirrhosis. Patient endorses history of heavy alcoholism but currently she is abstinent for several years. Denies any history of CAD, cirrhosis or CKD. proBNP WNL. Kidney function WNL. BLE Venous Doppler negative for DVT Likely due to poor venous return and low albumin state and undiagnosed cirrhosis. CT abdomen positive for steatohepatitis but denies any history of cirrhosis. Abdominal ultrasound is positive for hepatic steatosis. Bilateral lower extremity edema moderate improvement. Still 1+ pitting edema. Was started on bilateral lower extremity elevation and compression stocking. Continue with Lasix daily fluid restriction. Patient was advised to continue p.o. Lasix and fluid restriction and follow-up with gastroenterology as outpatient. An appointment was obtained for patient to follow-up with gastroenterology. Patient voiced understanding. (6) Steatohepatitis Patient endorses history of heavy alcohol abuse in the past. Has been abstinent for several years. Denies any history of cirrhosis. Likely due alcoholism or NAFLD/autoimmune hepatitis. Patient has a stigmata of liver cirrhosis. CT and abdominal ultrasound was positive for hepatic steatosis. Patient is thrombocytopenic, low albumin state and anemia which could all be due to underlying undiagnosed hepatic cirrhosis. Viral hepatitis panel negative. Serum copper 42. Antinuclear antibody negative. Antimitochondrial antibody negative. Anti-actin antibody negative. Outpatient GI follow-up recommended. Gastroenterology appointment obtained for the patient. (7) UTI (urinary tract infection) Due to E. coli. Pansensitive. Completed a course of antibiotics. Asymptomatic. (8) Hypokalemia Resolved. Likely due to GI losses. No acute EKG changes. Was started on daily potassium supplementation and dosage adjusted. Discharge on p.o. potassium supplement and asked to follow-up with PCP for evaluation of potassium. (9) Hypomagnesemia Resolved. Most likely due to GI losses. Was a started on daily magnesium supplementation, daily dosage adjustment was made. Discharged on supplemental magnesium and asked to follow-up with PCP for evaluation of magnesium level. Physical Exam Vital Signs: Temp Pulse Resp BP Pulse Ox 97.9 F 86 17 106/71 98 05/19/19 10:46 05/19/19 10:46 05/19/19 10:46 05/19/19 10:46 05/19/19 10:46 Intake & Output 05/19/19 05/20/19 05/21/19 06:59 06:59 06:59 Intake Total 766 420 Output Total 2100 2500 Balance -1334 -2080 Weight 87.8 kg General appearance: PRESENT: no acute distress, obese, well-developed, well- nourished Head exam: PRESENT: atraumatic, normocephalic Respiratory exam: PRESENT: clear to auscultation young. ABSENT: rales, rhonchi, wheezes Cardiovascular exam: PRESENT: RRR. ABSENT: diastolic murmur, rubs, systolic murmur Pulses: PRESENT: normal dorsalis pedis pul GI/Abdominal exam: PRESENT: normal bowel sounds, soft, other - Ostomy patent. No sign of infection. Adequate output.. ABSENT: distended, guarding, mass, organolmegaly, rebound, tenderness Extremities exam: PRESENT: +1 edema Neurological exam: PRESENT: alert, awake, oriented to person, oriented to place, oriented to time, oriented to situation, CN II-XII grossly intact. ABSENT: motor sensory deficit Skin exam: PRESENT: dry, intact, warm. ABSENT: cyanosis, rash Results Laboratory Results: WBC 4.6 10^3/uL (4.0-10.5) 05/19/19 04:30 RBC 3.17 10^6/uL (3.72-5.28) L 05/19/19 04:30 Hgb 9.5 g/dL (12.0-15.5) L 05/19/19 04:30 Hct 27.4 % (36.0-47.0) L 05/19/19 04:30 MCV 86 fl (80-97) 05/19/19 04:30 MCH 30.0 pg (27.0-33.4) 05/19/19 04:30 MCHC 34.8 g/dL (32.0-36.0) 05/19/19 04:30 RDW 17.5 % (11.5-14.0) H 05/19/19 04:30 Plt Count 239 10^3/uL (150-450) 05/19/19 04:30 Lymph % (Auto) 40.2 % (13-45) 05/17/19 04:04 [place] % (Auto) 8.2 % (3-13) 05/17/19 04:04 Eos % (Auto) 2.2 % (0-6) 05/17/19 04:04 Baso % (Auto) 0.5 % (0-2) 05/17/19 04:04 Reticulocyte # 0.082 10^6/uL (0.028-0.122) 05/17/19 04:04 Absolute Neuts (auto) 2.6 10^3/uL (1.7-8.2) 05/17/19 04:04 Absolute Lymphs (auto) 2.2 10^3/uL (0.5-4.7) 05/17/19 04:04 Absolute Monos (auto) 0.4 10^3/uL (0.1-1.4) 05/17/19 04:04 Absolute Eos (auto) 0.1 10^3/uL (0.0-0.6) 05/17/19 04:04 Absolute Basos (auto) 0.0 10^3/uL (0.0-0.2) 05/17/19 04:04 Total Counted 100 05/11/19 04:28 Seg Neutrophils % 48.9 % (42-78) 05/17/19 04:04 Seg Neuts % (Manual) 53 % (42-78) 05/11/19 04:28 Band Neutrophils % 8 % (3-5) H 05/11/19 04:28 Lymphocytes % (Manual) 24 % (13-45) 05/11/19 04:28 Monocytes % (Manual) 15 % (3-13) H 05/11/19 04:28 Eosinophils % (Manual) 0 % (0-6) 05/11/19 04:28 Basophils % (Manual) 0 % (0-2) 05/11/19 04:28 Abs Neuts (Manual) 2.3 10^3/uL (1.7-8.2) 05/11/19 04:28 Abs Lymphs (Manual) 0.9 10^3/uL (0.5-4.7) 05/11/19 04:28 Abs Monocytes (Manual) 0.6 10^3/uL (0.1-1.4) 05/11/19 04:28 Absolute Eos (Manual) 0.0 10^3/uL (0.0-0.6) 05/11/19 04:28 Abs Basophils (Manual) 0.0 10^3/uL (0.0-0.2) 05/11/19 04:28 Toxic Granulation 1+ 05/11/19 04:28 Platelet Estimate Cancelled 05/13/19 05:27 Platelet Comment ADEQUATE 05/11/19 04:28 Poikilocytosis 1+ 05/11/19 04:28 Anisocytosis 1+ 05/11/19 04:28 Ovalocytes 1+ 05/11/19 04:28 RBC Morph Comment NORMO-CYTIC/CHROMIC 05/10/19 05:43 Retic Count (auto) 3.90 % (0.66-2.85) H 05/17/19 04:04 Sodium 129.0 mmol/L (137-145) L 05/19/19 04:30 Potassium 3.7 mmol/L (3.6-5.0) 05/19/19 04:30 Chloride 95 mmol/L (98-107) L 05/19/19 04:30 Carbon Dioxide 29 mmol/L (22-30) 05/19/19 04:30 Anion Gap 5 (5-19) 05/19/19 04:30 BUN 7 mg/dL (7-20) 05/19/19 04:30 Creatinine 0.26 mg/dL (0.52-1.25) L 05/19/19 04:30 Est GFR ( Amer) > 60 (>60) 05/19/19 04:30 Est GFR (Non-Af Amer) Cancelled 05/13/19 05:27 Est GFR (MDRD) Non-Af > 60 (>60) 05/19/19 04:30 Glucose 90 mg/dL (75-110) 05/19/19 04:30 Serum Osmolality 265 mOsm/kg (275-301) L 05/05/19 14:40 Calcium 7.7 mg/dL (8.4-10.2) L 05/19/19 04:30 Ionized Calcium Zhao 1.07 mmol/L (1.14-1.30) L 05/09/19 05:27 Phosphorus 1.8 mg/dL (2.5-4.5) L 05/12/19 06:17 Magnesium 2.2 mg/dL (1.6-2.3) 05/19/19 04:30 Iron 40.6 ug/dL (37-170) 05/10/19 05:43 TIBC 109 ug/dL (250-450) L 05/10/19 05:43 % Saturation 37 % 05/10/19 05:43 Ferritin 720.00 ng/mL (11.1-264.0) H 05/10/19 05:43 Total Bilirubin 0.7 mg/dL (0.2-1.3) 05/19/19 04:30 Direct Bilirubin 0.2 mg/dL (0.0-0.4) 05/19/19 04:30 Neonat Total Bilirubin Not Reportable 05/19/19 04:30 Neonat Direct Bilirubin Not Reportable 05/19/19 04:30 Neonat Indirect Bili Not Reportable 05/19/19 04:30 AST 27 U/L (14-36) 05/19/19 04:30 ALT 13 U/L (<35) 05/19/19 04:30 Alkaline Phosphatase 77 U/L (38-126) 05/19/19 04:30 Lactate Dehydrogenase 259 U/L (120-246) H 05/17/19 11:40 NT-Pro-B Natriuret Pep 183 pg/mL (<125) H 05/05/19 14:40 Total Protein 5.1 g/dL (6.3-8.2) L 05/19/19 04:30 Albumin 2.4 g/dL (3.5-5.0) L 05/19/19 04:30 Alpha-1-AT Note Comment (.) 05/13/19 13:08 A1AT Bernice Review By Comment (.) 05/13/19 13:08 A1AT Mutation Comment (.) 05/13/19 13:08 Triglycerides 85 mg/dL (<150) 05/06/19 04:18 Cholesterol 72.97 mg/dL (0-200) 05/06/19 04:18 LDL Cholesterol Direct 42 mg/dL (<100) 05/06/19 04:18 VLDL Cholesterol 17.0 mg/dL (10-31) 05/06/19 04:18 HDL Cholesterol 26 mg/dL (>40) L 05/06/19 04:18 Lipase < 10.0 U/L (23-300) L 05/05/19 14:40 Carcinoembryonic Ag 1.02 ng/mL (<3.0) 05/09/19 05:27 EGFR Cancelled 05/13/19 05:27 Vitamin B12 399.0 pg/mL (239-931) 05/10/19 05:43 Folate 2.67 ng/mL (>2.76) L 05/10/19 05:43 TSH 3.26 uIU/mL (0.47-4.68) 05/06/19 04:18 Free T4 1.18 ng/dL (0.78-2.19) 05/06/19 04:18 Free T3 pg/mL 1.44 pg/mL (2.77-5.27) L 05/06/19 04:18 Urine Color MARIA LUZ 05/06/19 05:10 Urine Appearance SLIGHTLY-CLOUDY 05/06/19 05:10 Urine pH 5.0 (5.0-9.0) 05/06/19 05:10 Ur Specific [place] 1.028 05/06/19 05:10 Urine Protein 30 mg/dL (NEGATIVE) H 05/06/19 05:10 Urine Glucose (UA) NEGATIVE mg/dL (NEGATIVE) 05/06/19 05:10 Urine Ketones 20 mg/dL (NEGATIVE) H 05/06/19 05:10 Urine Blood NEGATIVE (NEGATIVE) 05/06/19 05:10 Urine Nitrite NEGATIVE (NEGATIVE) 05/06/19 05:10 Urine Nitrite (Reflex) NEGATIVE (NEGATIVE) 05/05/19 15:25 Urine Bilirubin SMALL (NEGATIVE) H 05/06/19 05:10 Urine Urobilinogen 4.0 mg/dL (<2.0) H 05/06/19 05:10 Ur Leukocyte Esterase SMALL (NEGATIVE) H 05/06/19 05:10 Leukocyte Esterase Rfl SMALL (NEGATIVE) H 05/05/19 15:25 Urine WBC (Auto) 23 /HPF 05/06/19 05:10 Urine RBC (Auto) 4 /HPF 05/06/19 05:10 U Hyaline Cast (Auto) 57 /LPF 05/06/19 05:10 Urine Bacteria (Auto) 1+ /HPF 05/06/19 05:10 Urine WBC (Reflex) 15 /HPF 05/05/19 15:25 Urine WBC Clumps RARE /HPF 05/06/19 05:10 Squamous Epi Cells Auto 4 /HPF 05/06/19 05:10 Urine Mucus (Auto) MOD /LPF 05/06/19 05:10 Urine Osmolality 702 mOsm/kg (300-900) 05/06/19 05:10 Urine Creatinine 6.6 mg/dL (15-278) L 05/15/19 14:55 Urine Sodium 7 mmol/L (30-90) L 05/15/19 14:55 Urine Ascorbic Acid NEGATIVE (NEGATIVE) 05/06/19 05:10 Stool Occult Blood NEGATIVE (NEGATIVE) 05/13/19 08:00 Copper 42 ug/dL (72-166) L 05/15/19 05:58 Anti-Nuclear Antibody Negative (Negative) 05/13/19 13:08 Mitochondria M2 Ab <20.0 Units (0.0-20.0) 05/13/19 13:08 Anti-Actin Antibody 7 Units (0-19) 05/13/19 13:08 Hepatitis A IgM Ab Negative (Negative) 05/13/19 13:08 Hep Bs Antigen Negative (Negative) 05/13/19 13:08 Hep B Core IgM Ab Negative (Negative) 05/13/19 13:08 Hepatitis C Antibody 0.1 s/co ratio (0.0-0.9) 05/13/19 13:08 Influenza A (Rapid) NEGATIVE (NEGATIVE) 05/15/19 14:55 Influenza B (Rapid) NEGATIVE (NEGATIVE) 05/15/19 14:55 Slides for Path Review Cancelled 05/13/19 05:27 Blood Type O NEGATIVE 05/17/19 12:40 Blood Type Confirm O NEGATIVE 05/17/19 13:04 Antibody Screen NEGATIVE 05/17/19 12:40 Crossmatch See Detail 05/17/19 12:40 05/05/19 14:40 NT-Pro-B Natriuret Pep 183 H Impressions: Acute Abdomen Series 05/05/19 17:05 IMPRESSION: Persistent dilated colon with mild small-bowel distention. KUB X-Ray 05/05/19 19:06 IMPRESSION: The NG tube is about 5 cm inside the stomach. Barium Enema 05/06/19 00:00 IMPRESSION: SUGGESTED MASS WITHIN THE MID SIGMOID COLON CAUSING NEAR COMPLETE OBSTRUCTION. A VERY SMALL AMOUNT CONTRAST DOES REACH THE DESCENDING COLON. RECTUM AND RECTOSIGMOID JUNCTION APPEARS NORMAL. MODERATE AIR AND FLUID-FILLED DILATATION OF THE REMAINDER OF THE COLON DUE TO OBSTRUCTION. Venous Doppler Study 05/11/19 00:00 IMPRESSION: LIMITED STUDY. NO EVIDENCE DVT OR SVT IN EITHER LEG. Abdomen Ultrasound 05/13/19 00:00 IMPRESSION: 1. Increased echogenicity of hepatic parenchyma suggestive of hepatic steatosis. 2. Cholelithiasis without other associated ancillary findings to indicate an acute cholecystitis. Stroke Is this a Stroke Patient?: No Acute Heart Failure - Is this a Heart Failure Patient?: No
== END 2019-05-19 13:00 | disposition home health service (06) | DRG 330 ==
LOC: ER 12:56 → EH 19:22 → 5 21:13 → 3S 05-07 00:28
PROVIDERS: ADMIT Hospitalist; ATTEND Hospitalist
PROC: 0D1N0Z4 Bypass Sigmoid Colon to Cutaneous, Open Approach (ICD-10-PCS; 2019-05-06)
PROC: 0WQF0ZZ Repair Abdominal Wall, Open Approach (ICD-10-PCS; 2019-05-06)
PROC: 0DTN0ZZ Resection of Sigmoid Colon, Open Approach (ICD-10-PCS; principal; 2019-05-06 18:15)
PROC: 30233N1 Transfusion of Nonautologous Red Blood Cells into Peripheral Vein, Percutaneous Approach (ICD-10-PCS; 2019-05-17)
DX: K56.600 Partial intestinal obstruction, unspecified as to cause (principal); E87.1 Hypo-osmolality and hyponatremia; D62 Acute posthemorrhagic anemia; Z68.41 Body mass index [BMI] 40.0-44.9, adult; N30.00 Acute cystitis without hematuria; E66.9 Obesity, unspecified; E87.6 Hypokalemia; E83.42 Hypomagnesemia; B96.20 Unspecified Escherichia coli [E. coli] as the cause of diseases classified elsewhere; D70.8 Other neutropenia; K21.9 Gastro-esophageal reflux disease without esophagitis; K57.10 Diverticulosis of small intestine without perforation or abscess without bleeding; K43.9 Ventral hernia without obstruction or gangrene; K80.20 Calculus of gallbladder without cholecystitis without obstruction; K76.89 Other specified diseases of liver; K70.30 Alcoholic cirrhosis of liver without ascites; F10.21 Alcohol dependence, in remission; Z79.899 Other long term (current) drug therapy
CPT/HCPCS: 00840; 36415; 36430; 74018; 74022; 74270; 76705; 80048; 80053; 80061; 80069; 80074; 81001; 81332; 82272; 82330; 82378; 82525; 82570; 82607; 82728; 82746; 83540; 83550; 83615; 83690; 83735; 83880; 83930; 83935; 84300; 84439; 84443; 84481; 85025; 85027; 85045; 86038; 86235; 86256; 86850; 86900; 86901; 86920; 87086; 87088; 87186; 87804; 88307; 93970; 96360; 96372; 99285; J0610; A9270-GY; C9113; J0131; J0330; J0500; J0690; J1100; J1170; J1610; J1644; J1885; J1940; J1956; J2060; J2250; J2270; J2405; J2550; J2704; J2710; J3010; J3475; J3480; J3490; J7030; J7040; P9016; P9047

== ENCOUNTER → 2019-05-28 | Outpatient (CLI) | payer OTHER ==
[2019-05-28 11:15] LABS: ALBUMIN 3.4 g/dL (3.5-5.0); ANION GAP 11 (5-19); BLOOD UREA NITROGEN 13 mg/dL (7-20); CALCIUM 9.3 mg/dL (8.4-10.2); CARBON DIOXIDE 28 mmol/L (22-30); CHLORIDE 96 mmol/L (98-107); GLUCOSE 91 mg/dL (75-110); PHOSPHORUS 5.7 mg/dL (2.5-4.5); POTASSIUM 5.2 mmol/L (3.6-5.0)
== END ==
LOC: OD 10:01
PROVIDERS: ATTEND Physician Assistant Medical
DX: E87.1 Hypo-osmolality and hyponatremia (principal); D64.9 Anemia, unspecified; E83.42 Hypomagnesemia
CPT/HCPCS: 36415; 80069; 83735

== ENCOUNTER → 2019-08-23 | Outpatient (CLI) | payer OTHER ==
[2019-08-23 10:41] LABS: APPEARANCE,URINE CLEAR; BILIRUBIN,URINE NEGATIVE (NEGATIVE); COLOR,URINE STRAW; GLUCOSE, URINE NEGATIVE (NEGATIVE); KETONES,URINE NEGATIVE (NEGATIVE); LEUKOCYTE ESTERASE,URINE NEGATIVE (NEGATIVE); NITRITE,URINE NEGATIVE (NEGATIVE); PROTEIN,URINE NEGATIVE (NEGATIVE); URINE SPECIFIC GRAVITY 1.003; UROBILINOGEN,URINE NEGATIVE mg/dL (<2.0)
[2019-08-23 10:56] LABS: ALBUMIN 4.2 g/dL (3.5-5.0); ANION GAP 7 (5-19); BLOOD UREA NITROGEN 9 mg/dL (7-20); CALCIUM 9.6 mg/dL (8.4-10.2); CARBON DIOXIDE 28 mmol/L (22-30); CHLORIDE 99 mmol/L (98-107); GLUCOSE 87 mg/dL (75-110); POTASSIUM 4.2 mmol/L (3.6-5.0)
== END ==
LOC: OD 09:24
PROVIDERS: ATTEND Physician Assistant Medical
DX: E87.1 Hypo-osmolality and hyponatremia (principal); E87.6 Hypokalemia; E83.42 Hypomagnesemia; D64.9 Anemia, unspecified; R60.9 Edema, unspecified
CPT/HCPCS: 36415; 80069; 81001; 83735

== ENCOUNTER 2019-10-05 09:58 | Inpatient (IN) | payer OTHER ==
[~2019-10-05 09:58] MED LIST: GLYCOPYRROLATE 1 MG/5 ML VIAL ONE; PHENYLEPHRINE HCL INJ/PF 10 MG/1 ML SDV ONE; ROCURONIUM BROMIDE INJ 50 MG/5 ML VIAL IV ONE; SUCCINYLCHOLINE CHLORIDE INJ 200 MG/10 ML VIAL ONE
[2019-10-05] MEDS ORDERED: PROPOFOL INJ 200 MG/20 ML VIAL IV ONE ×2 (12:06→12:50)
[2019-10-05] MEDS ORDERED: MIDAZOLAM 2 MG/2 ML INJ ONE (12:49)
[2019-10-05] MEDS ORDERED: FENTANYL CITRATE INJ/PF 100 MCG/2 ML AMPUL ONE (12:49)
[2019-10-05] MEDS ORDERED: ONDANSETRON HCL INJ/PF 4 MG/2 ML SDV ONE (12:50)
[2019-10-05] MEDS ORDERED: DEXAMETHASONE SOD PHOSPHATE INJ 4 MG/1 ML VIAL ONE (12:50)
[2019-10-05] MEDS ORDERED: CEFAZOLIN INJ 1 GM VIAL ONE (13:04)
[2019-10-05] MEDS ORDERED: METRONIDAZOLE 500 MG/NS RTU 500 MG/100 ML RTUPB IV ONE (13:04)
[2019-10-05] MEDS ORDERED: FENTANYL CITRATE INJ/PF 100 MCG/2 ML AMPUL IV PRN ×3 (13:23)
[2019-10-05] MEDS ORDERED: DIPHENHYDRAMINE HCL 50 MG/ML VIAL IV PRN (13:23)
[2019-10-05] MEDS ORDERED: PROMETHAZINE HCL INJ 25 MG/1 ML VIAL IV PRN (13:23)
[2019-10-05] MEDS ORDERED: MORPHINE SULFATE 10 MG/ML INJ IV PRN (13:23)
[2019-10-05] MEDS ORDERED: MEPERIDINE HCL/PF INJ 25 MG/1 ML DISP.SYRIN IV PRN (13:23)
[2019-10-05] MEDS ORDERED: HYDROMORPHONE HCL INJ/PF 2 MG/ML AMPULE ONE (13:55)
[2019-10-05] MEDS ORDERED: EPHEDRINE SULFATE INJ 50 MG/1 ML AMPULE ONE (13:58)
[2019-10-05] MEDS ORDERED: BUPIVACAINE INJ/PF LIPOSOME/PF 266 MG/20 ML SDV ONE (14:07)
[2019-10-05] MEDS ORDERED: MORPHINE SULFATE 10 MG/ML INJ ONE (15:20)
[2019-10-05] MEDS: MORPHINE SULFATE 10 MG/ML INJ IV PRN ×2 (15:22→19:32)
[2019-10-05] MEDS: KETOROLAC TROMETHAMINE INJ/PF 30 MG/1 ML SDV IV SCH (17:25)
[2019-10-05] MEDS ORDERED: NORMAL SALINE 1000 ML 1,000 ML IV ONE (17:30)
[2019-10-05] MEDS: POTASSI CL 20 MEQ/D5-1/2NS 1L 1,000 ML IV PRN (19:34)
[2019-10-05] MEDS: CEFAZOLIN 1 GM/D5W RTU 1 GM/50 ML RTUPB IV SCH (21:38)
[2019-10-05] MEDS: METRONIDAZOLE 500 MG/NS RTU 500 MG/100 ML RTUPB IV SCH (21:38)
[2019-10-05] MEDS: FAMOTIDINE INJ/PF 20 MG/2 ML SDV IV SCH (21:38)
[2019-10-06] MEDS: KETOROLAC TROMETHAMINE INJ/PF 30 MG/1 ML SDV IV SCH ×4 (00:14→18:20)
[2019-10-06] MEDS: ONDANSETRON HCL INJ/PF 4 MG/2 ML SDV IV PRN ×2 (04:01→14:03)
[2019-10-06] MEDS: MORPHINE SULFATE 10 MG/ML INJ IV PRN ×2 (04:01→21:10)
[2019-10-06] MEDS: POTASSI CL 20 MEQ/D5-1/2NS 1L 1,000 ML IV PRN ×2 (04:01→12:38)
[2019-10-06] MEDS: CEFAZOLIN 1 GM/D5W RTU 1 GM/50 ML RTUPB IV SCH ×3 (05:08→21:10)
[2019-10-06] MEDS: METRONIDAZOLE 500 MG/NS RTU 500 MG/100 ML RTUPB IV SCH ×3 (05:08→21:10)
[2019-10-06 06:46] LABS: ABSOLUTE LYMPHOCYTES (AUTO) 0.5 10^3/uL (0.5-4.7); ABSOLUTE MONOCYTES (AUTO) 0.5 10^3/uL (0.1-1.4); ABSOLUTE NEUT (AUTO) 5.4 10^3/uL (1.7-8.2); BASOPHILS % (AUTO) 0.3 % (0-2); HEMATOCRIT 36.7 % (36.0-47.0); HEMOGLOBIN 12.6 g/dL (12.0-15.5); LYMPHOCYTES % (AUTO) 8.3 % (13-45); MEAN CORPUSCULAR HEMOGLOBIN 33.2 pg (27.0-33.4); MEAN CORPUSCULAR HGB CONC 34.4 g/dL (32.0-36.0); MEAN CORPUSCULAR VOLUME 97 fl (80-97); MONOCYTES % (AUTO) 7.4 % (3-13); PLATELET COUNT 199 10^3/uL (150-450); RED CELL DISTRIBUTION WIDTH 13.9 % (11.5-14.0); TOTAL CELLS COUNTED % (AUTO) 100 %; WHITE BLOOD COUNT 6.4 10^3/uL (4.0-10.5)
[2019-10-06 07:04] LABS: ANION GAP 9 (5-19); BLOOD UREA NITROGEN 14 mg/dL (7-20); CALCIUM 8.2 mg/dL (8.4-10.2); CARBON DIOXIDE 21 mmol/L (22-30); CHLORIDE 99 mmol/L (98-107); GLUCOSE 194 mg/dL (75-110); POTASSIUM 4.8 mmol/L (3.6-5.0)
--- NOTE | 2019-10-06 07:47 | PDOC PROGRESS REPORT ---
Subjective Progress Note for:: 10/06/19 Subjective:: feels ok min pain Reason For Visit: COLOSTOMY REVERSAL Physical Exam Vital Signs: Temp Pulse Resp BP Pulse Ox 98.1 F 94 17 101/61 95 10/06/19 07:19 10/06/19 07:19 10/06/19 07:19 10/06/19 07:19 10/06/19 07:19 Intake & Output 10/05/19 10/06/19 10/07/19 06:59 06:59 06:59 Intake Total 4540 Output Total 1380 Balance 3160 Weight 79.09 kg 79.09 kg General appearance: PRESENT: no acute distress Head exam: PRESENT: normocephalic Eye exam: PRESENT: EOMI Ear exam: PRESENT: normal external ear exam Mouth exam: PRESENT: moist Neck exam: PRESENT: full ROM Respiratory exam: PRESENT: clear to auscultation young Cardiovascular exam: PRESENT: RRR Pulses: PRESENT: normal femoral pulses, normal dorsalis pedis pul Vascular exam: PRESENT: normal capillary refill Breast: PRESENT: Normal GI/Abdominal exam: PRESENT: soft Rectal exam: PRESENT: deferred Extremities exam: PRESENT: full ROM Musculoskeletal exam: PRESENT: full ROM Neurological exam: PRESENT: alert, awake, oriented to person, oriented to place Psychiatric exam: PRESENT: appropriate affect Skin exam: PRESENT: dry Results Laboratory Results: 10/06/19 05:17 10/06/19 05:17 10/06/19 10/06/19 05:17 05:17 WBC 6.4 RBC 3.80 Hgb 12.6 Hct 36.7 MCV 97 MCH 33.2 MCHC 34.4 RDW 13.9 Plt Count 199 Seg Neutrophils % 84.0 H Sodium 128.5 L Potassium 4.8 Chloride 99 Carbon Dioxide 21 L Anion Gap 9 BUN 14 Creatinine 0.63 Est GFR ( Amer) > 60 Glucose 194 H Calcium 8.2 L Assessment & Plan - Plan Summary Plan Summary: doing well pod 1 feels ok no flatus as yet lucy output serous labs reviewed will cont current rx
[2019-10-06] MEDS: FAMOTIDINE INJ/PF 20 MG/2 ML SDV IV SCH ×2 (11:15→21:10)
[2019-10-07] MEDS: POTASSI CL 20 MEQ/D5-1/2NS 1L 1,000 ML IV PRN (00:17)
[2019-10-07] MEDS: KETOROLAC TROMETHAMINE INJ/PF 30 MG/1 ML SDV IV SCH ×4 (00:18→19:15)
[2019-10-07 05:20] LABS: HEMATOCRIT 28.3 % (36.0-47.0); MEAN CORPUSCULAR HEMOGLOBIN 33.6 pg (27.0-33.4); MEAN CORPUSCULAR VOLUME 96 fl (80-97); PLATELET COUNT 143 10^3/uL (150-450); RED BLOOD COUNT 2.95 10^6/uL (3.72-5.28); RED CELL DISTRIBUTION WIDTH 14.2 % (11.5-14.0); WHITE BLOOD COUNT 4.1 10^3/uL (4.0-10.5)
[2019-10-07] MEDS: CEFAZOLIN 1 GM/D5W RTU 1 GM/50 ML RTUPB IV SCH ×3 (05:23→21:09)
[2019-10-07] MEDS: METRONIDAZOLE 500 MG/NS RTU 500 MG/100 ML RTUPB IV SCH ×3 (05:23→21:10)
[2019-10-07 05:27] LABS: BLOOD UREA NITROGEN 19 mg/dL (7-20); CALCIUM 7.9 mg/dL (8.4-10.2); CARBON DIOXIDE 24 mmol/L (22-30); CHLORIDE 97 mmol/L (98-107); GLUCOSE 118 mg/dL (75-110); POTASSIUM 4.9 mmol/L (3.6-5.0)
[2019-10-07 05:33] LABS: ANION GAP 4 (5-19)
[2019-10-07 06:25] LABS: HEMOGLOBIN 9.9 g/dL (12.0-15.5)
[2019-10-07 06:33] LABS: ABSOLUTE LYMPHOCYTES# (MANUAL) 1.6 10^3/uL (0.5-4.7); ABSOLUTE MONOCYTES # (MANUAL) 0.3 10^3/uL (0.1-1.4); BAND NEUTROPHILS % (MANUAL) 9 % (3-5); BASOPHILS % (MANUAL) 1 % (0-2); EOSINOPHILS % (MANUAL) 5 % (0-6); LYMPHOCYTES % (MANUAL) 38 % (13-45); MONOCYTES % (MANUAL) 8 % (3-13); SEGMENTED NEUTROPHILS % (MAN) 39 % (42-78); TOTAL CELLS COUNTED 100
[2019-10-07 06:35] LABS: ANISOCYTOSIS SLIGHT; PLATELET COMMENT DECREASED
--- NOTE | 2019-10-07 07:34 | PDOC PROGRESS REPORT ---
Subjective Progress Note for:: 10/07/19 Subjective:: feels ok passed some flatus Reason For Visit: COLOSTOMY REVERSAL Physical Exam Vital Signs: Temp Pulse Resp BP Pulse Ox 98.0 F 99 16 93/58 L 97 10/07/19 00:11 10/07/19 00:11 10/07/19 00:11 10/07/19 00:11 10/07/19 00:11 Intake & Output 10/06/19 10/07/19 10/08/19 06:59 06:59 06:59 Intake Total 4540 2658 Output Total 1380 455 Balance 3160 2203 Weight 79.09 kg 79.09 kg General appearance: PRESENT: no acute distress Head exam: PRESENT: normocephalic Eye exam: PRESENT: EOMI Ear exam: PRESENT: normal external ear exam Mouth exam: PRESENT: moist Teeth exam: PRESENT: poor dentation Neck exam: PRESENT: full ROM Respiratory exam: PRESENT: clear to auscultation young Cardiovascular exam: PRESENT: RRR Pulses: PRESENT: normal radial pulses, normal femoral pulses Vascular exam: PRESENT: normal capillary refill GI/Abdominal exam: PRESENT: soft Rectal exam: PRESENT: deferred Musculoskeletal exam: PRESENT: full ROM Neurological exam: PRESENT: alert, awake, oriented to person, oriented to place Psychiatric exam: PRESENT: appropriate affect Skin exam: PRESENT: dry Results Laboratory Results: 10/07/19 04:07 10/07/19 04:07 10/07/19 10/07/19 04:07 04:07 WBC 4.1 RBC 2.95 L Hgb 9.9 L D Hct 28.3 L MCV 96 MCH 33.6 H MCHC 35.0 RDW 14.2 H Plt Count 143 L Seg Neutrophils % Not Reportable Sodium 124.7 L Potassium 4.9 Chloride 97 L Carbon Dioxide 24 Anion Gap 4 L BUN 19 Creatinine 0.91 Est GFR ( Amer) > 60 Glucose 118 H Calcium 7.9 L Assessment & Plan - Plan Summary Plan Summary: pod 2 colostomy reversal passed small amts of flatus yesterday sodium low 124 will switch to ns fluids cont on clears only await further return of bowel function. cont out of bed.
[2019-10-07] MEDS: FAMOTIDINE INJ/PF 20 MG/2 ML SDV IV SCH ×2 (09:36→21:09)
[2019-10-07] MEDS: POTASSI CL 20 MEQ/D5NS 1L 20 MEQ/1,000 ML RTUINJ IV PRN ×2 (09:44→20:59)
[2019-10-08] MEDS: KETOROLAC TROMETHAMINE INJ/PF 30 MG/1 ML SDV IV SCH ×5 (00:41→23:36)
[2019-10-08] MEDS: CEFAZOLIN 1 GM/D5W RTU 1 GM/50 ML RTUPB IV SCH ×3 (05:21→21:10)
[2019-10-08] MEDS: METRONIDAZOLE 500 MG/NS RTU 500 MG/100 ML RTUPB IV SCH ×3 (05:22→22:22)
[2019-10-08 06:26] LABS: ABSOLUTE EOSINOPHILS # (AUTO) 0.1 10^3/uL (0.0-0.6); ABSOLUTE LYMPHOCYTES (AUTO) 0.7 10^3/uL (0.5-4.7); ABSOLUTE MONOCYTES (AUTO) 0.4 10^3/uL (0.1-1.4); ABSOLUTE NEUT (AUTO) 3.5 10^3/uL (1.7-8.2); BASOPHILS % (AUTO) 0.4 % (0-2); EOSINOPHILS % (AUTO) 2.8 % (0-6); HEMATOCRIT 28.7 % (36.0-47.0); HEMOGLOBIN 10.1 g/dL (12.0-15.5); LYMPHOCYTES % (AUTO) 14.8 % (13-45); MEAN CORPUSCULAR HEMOGLOBIN 33.6 pg (27.0-33.4); MEAN CORPUSCULAR HGB CONC 35.3 g/dL (32.0-36.0); MEAN CORPUSCULAR VOLUME 95 fl (80-97); MONOCYTES % (AUTO) 8.6 % (3-13); RED BLOOD COUNT 3.01 10^6/uL (3.72-5.28); RED CELL DISTRIBUTION WIDTH 14.1 % (11.5-14.0); SEGMENTED NEUTROPHILS % (AUTO) 73.4 % (42-78); TOTAL CELLS COUNTED % (AUTO) 100 %; WHITE BLOOD COUNT 4.7 10^3/uL (4.0-10.5)
[2019-10-08 06:42] LABS: BLOOD UREA NITROGEN 8 mg/dL (7-20); CALCIUM 8.5 mg/dL (8.4-10.2); GLUCOSE 113 mg/dL (75-110); POTASSIUM 3.9 mmol/L (3.6-5.0)
[2019-10-08 06:46] LABS: PLATELET COUNT 173 10^3/uL (150-450)
[2019-10-08 06:48] LABS: CARBON DIOXIDE 23 mmol/L (22-30); CHLORIDE 107 mmol/L (98-107)
[2019-10-08 06:49] LABS: ANION GAP 4 (5-19)
--- NOTE | 2019-10-08 08:17 | PDOC PROGRESS REPORT ---
Subjective Progress Note for:: 10/08/19 Subjective:: afeb vss, feels well , passed flatus and some stool Reason For Visit: COLOSTOMY REVERSAL Physical Exam Vital Signs: Temp Pulse Resp BP Pulse Ox 97.3 F 87 17 140/87 H 98 10/08/19 07:25 10/08/19 07:25 10/08/19 07:25 10/08/19 07:25 10/08/19 07:25 Intake & Output 10/07/19 10/08/19 10/09/19 06:59 06:59 06:59 Intake Total 2658 2980 Output Total 455 3485 Balance 2203 -505 Weight 79.09 kg 79.09 kg General appearance: PRESENT: no acute distress Head exam: PRESENT: normocephalic Eye exam: PRESENT: EOMI Ear exam: PRESENT: normal external ear exam Mouth exam: PRESENT: moist Neck exam: PRESENT: full ROM Respiratory exam: PRESENT: clear to auscultation young Cardiovascular exam: PRESENT: RRR Pulses: PRESENT: normal femoral pulses, normal dorsalis pedis pul Vascular exam: PRESENT: normal capillary refill Breast: PRESENT: Normal GI/Abdominal exam: PRESENT: soft - old stoma site closure intact, erythema improved sl drainage, serous. Rectal exam: PRESENT: deferred Extremities exam: PRESENT: full ROM Musculoskeletal exam: PRESENT: ambulatory Neurological exam: PRESENT: alert, awake, oriented to person, oriented to place Psychiatric exam: PRESENT: appropriate affect Skin exam: PRESENT: dry Results Laboratory Results: 10/08/19 05:42 10/08/19 05:42 10/08/19 10/08/19 05:42 05:42 WBC 4.7 RBC 3.01 L Hgb 10.1 L Hct 28.7 L MCV 95 MCH 33.6 H MCHC 35.3 RDW 14.1 H Plt Count 173 Seg Neutrophils % 73.4 Sodium 134.0 L Potassium 3.9 Chloride 107 Carbon Dioxide 23 Anion Gap 4 L BUN 8 Creatinine 0.47 L Est GFR ( Amer) > 60 Glucose 113 H Calcium 8.5 Assessment & Plan - Plan Summary Plan Summary: s/p colonoscopywith perforation s/p colostomy reversal\ doing well now passing flatus and stool labs reviewed will advance to full liquids.
[2019-10-08] MEDS: FAMOTIDINE INJ/PF 20 MG/2 ML SDV IV SCH ×2 (09:14→21:10)
[2019-10-08] MEDS: POTASSI CL 20 MEQ/D5NS 1L 20 MEQ/1,000 ML RTUINJ IV PRN ×2 (10:44→23:37)
[2019-10-09] MEDS: CEFAZOLIN 1 GM/D5W RTU 1 GM/50 ML RTUPB IV SCH ×3 (06:07→21:31)
[2019-10-09] MEDS: KETOROLAC TROMETHAMINE INJ/PF 30 MG/1 ML SDV IV SCH ×4 (06:07→23:27)
[2019-10-09 06:18] LABS: ABSOLUTE EOSINOPHILS # (AUTO) 0.1 10^3/uL (0.0-0.6); ABSOLUTE LYMPHOCYTES (AUTO) 0.8 10^3/uL (0.5-4.7); ABSOLUTE MONOCYTES (AUTO) 0.6 10^3/uL (0.1-1.4); ABSOLUTE NEUT (AUTO) 3.2 10^3/uL (1.7-8.2); BASOPHILS % (AUTO) 0.4 % (0-2); EOSINOPHILS % (AUTO) 2.1 % (0-6); HEMATOCRIT 26.7 % (36.0-47.0); HEMOGLOBIN 9.3 g/dL (12.0-15.5); LYMPHOCYTES % (AUTO) 17.3 % (13-45); MEAN CORPUSCULAR HEMOGLOBIN 33.4 pg (27.0-33.4); MEAN CORPUSCULAR VOLUME 96 fl (80-97); MONOCYTES % (AUTO) 12.7 % (3-13); PLATELET COUNT 192 10^3/uL (150-450); RED BLOOD COUNT 2.79 10^6/uL (3.72-5.28); RED CELL DISTRIBUTION WIDTH 13.7 % (11.5-14.0); SEGMENTED NEUTROPHILS % (AUTO) 67.5 % (42-78); TOTAL CELLS COUNTED % (AUTO) 100 %; WHITE BLOOD COUNT 4.7 10^3/uL (4.0-10.5)
[2019-10-09 06:39] LABS: BLOOD UREA NITROGEN 3 mg/dL (7-20); CALCIUM 8.4 mg/dL (8.4-10.2); GLUCOSE 121 mg/dL (75-110); POTASSIUM 3.7 mmol/L (3.6-5.0)
[2019-10-09 06:45] LABS: ANION GAP 5 (5-19); CARBON DIOXIDE 24 mmol/L (22-30); CHLORIDE 105 mmol/L (98-107)
[2019-10-09] MEDS: METRONIDAZOLE 500 MG/NS RTU 500 MG/100 ML RTUPB IV SCH ×3 (06:49→21:32)
--- NOTE | 2019-10-09 09:35 | PDOC PROGRESS REPORT ---
Subjective Progress Note for:: 10/09/19 Subjective:: feels well passing stool/flatus Reason For Visit: COLOSTOMY REVERSAL Physical Exam Vital Signs: Temp Pulse Resp BP Pulse Ox 98.0 F 81 17 133/80 H 95 10/09/19 07:34 10/09/19 07:34 10/09/19 07:34 10/09/19 07:34 10/09/19 07:34 Intake & Output 10/08/19 10/09/19 10/10/19 06:59 06:59 06:59 Intake Total 3980 2668 Output Total 3482 2270 Balance 495 398 Weight 79.09 kg 80.1 kg General appearance: PRESENT: mild distress Head exam: PRESENT: normocephalic Eye exam: PRESENT: EOMI Mouth exam: PRESENT: moist Neck exam: PRESENT: full ROM Respiratory exam: PRESENT: clear to auscultation young Cardiovascular exam: PRESENT: RRR Pulses: PRESENT: normal radial pulses, normal femoral pulses Breast: PRESENT: Normal GI/Abdominal exam: PRESENT: soft Rectal exam: PRESENT: deferred Extremities exam: PRESENT: full ROM Musculoskeletal exam: PRESENT: full ROM Neurological exam: PRESENT: alert, awake, oriented to person, oriented to place, oriented to time, oriented to situation, reflexes normal Psychiatric exam: PRESENT: appropriate affect Skin exam: PRESENT: dry Results Laboratory Results: 10/09/19 05:36 10/09/19 05:36 10/09/19 10/09/19 05:36 05:36 WBC 4.7 RBC 2.79 L Hgb 9.3 L Hct 26.7 L MCV 96 MCH 33.4 MCHC 35.0 RDW 13.7 Plt Count 192 Seg Neutrophils % 67.5 Sodium 133.7 L Potassium 3.7 Chloride 105 Carbon Dioxide 24 Anion Gap 5 BUN 3 L Creatinine 0.47 L Est GFR ( Amer) > 60 Glucose 121 H Calcium 8.4 Assessment & Plan - Plan Summary Plan Summary: doing well passing stool now alexsander full liquids will advance diet home in am.
[2019-10-09] MEDS: FAMOTIDINE INJ/PF 20 MG/2 ML SDV IV SCH ×2 (10:27→21:32)
[2019-10-10] MEDS: KETOROLAC TROMETHAMINE INJ/PF 30 MG/1 ML SDV IV SCH (05:50)
[2019-10-10] MEDS: ONDANSETRON HCL INJ/PF 4 MG/2 ML SDV IV PRN (05:50)
[2019-10-10] MEDS: CEFAZOLIN 1 GM/D5W RTU 1 GM/50 ML RTUPB IV SCH (05:51)
[2019-10-10 06:19] LABS: ABSOLUTE EOSINOPHILS # (AUTO) 0.1 10^3/uL (0.0-0.6); ABSOLUTE LYMPHOCYTES (AUTO) 0.9 10^3/uL (0.5-4.7); ABSOLUTE MONOCYTES (AUTO) 0.8 10^3/uL (0.1-1.4); ABSOLUTE NEUT (AUTO) 2.7 10^3/uL (1.7-8.2); BASOPHILS % (AUTO) 0.5 % (0-2); EOSINOPHILS % (AUTO) 2.6 % (0-6); HEMATOCRIT 26.1 % (36.0-47.0); HEMOGLOBIN 9.3 g/dL (12.0-15.5); LYMPHOCYTES % (AUTO) 20.4 % (13-45); MEAN CORPUSCULAR HEMOGLOBIN 33.9 pg (27.0-33.4); MEAN CORPUSCULAR HGB CONC 35.6 g/dL (32.0-36.0); MEAN CORPUSCULAR VOLUME 95 fl (80-97); MONOCYTES % (AUTO) 16.6 % (3-13); PLATELET COUNT 171 10^3/uL (150-450); RED BLOOD COUNT 2.74 10^6/uL (3.72-5.28); RED CELL DISTRIBUTION WIDTH 13.7 % (11.5-14.0); SEGMENTED NEUTROPHILS % (AUTO) 59.9 % (42-78); TOTAL CELLS COUNTED % (AUTO) 100 %; WHITE BLOOD COUNT 4.6 10^3/uL (4.0-10.5)
[2019-10-10] MEDS: METRONIDAZOLE 500 MG/NS RTU 500 MG/100 ML RTUPB IV SCH (06:32)
[2019-10-10 06:44] LABS: ANION GAP 6 (5-19); BLOOD UREA NITROGEN 3 mg/dL (7-20); CALCIUM 8.4 mg/dL (8.4-10.2); CARBON DIOXIDE 23 mmol/L (22-30); CHLORIDE 103 mmol/L (98-107); GLUCOSE 92 mg/dL (75-110); POTASSIUM 3.4 mmol/L (3.6-5.0)
--- NOTE | 2019-10-10 08:11 | PDOC DISCHARGE SUMMARY ---
General - Admit/Disc Date/PCP Admission Date/Primary Care Provider: 10/05/19 15:05 HORACE DELVALLE MD Discharge Date: 10/10/19 - Discharge Diagnosis Final Diagnosis: colostomy reversal - Assessment Summary: pt admitted for elective conlonoscopy in preparatin for colostomy reversal perforation at time of colostomy resulted in exploratory laparotomy and colostomy reversal at that time pt had a benign post op course started on clears an d advanced to reg when bowel function returned now passing stool and having nl bowel function alexsander reg diet lucy drain removed and pt ready for dc home today - Additional Information Resuscitation Status: Full Code Discharge Activity: Activity As Tolerated, No Lifting Over 10 Pounds - pt needs f/u with me in clilnic in 1 wk. Referrals: [facility] [Provider Group] - 10/20/19 8:30 am Home Medications: Acetaminophen [Tylenol 325 mg Tablet] 325 mg PO DAILY 10/04/19 Ibuprofen [Motrin 400 mg Tablet] 400 mg PO DAILY 10/04/19 History of Present Illiness History of Present Illness: JIM VICK is a 59 year old female Physical Exam Vital Signs: Temp Pulse Resp BP Pulse Ox 98.4 F 90 16 130/74 H 97 10/09/19 23:59 10/09/19 23:59 10/09/19 23:59 10/09/19 23:59 10/09/19 23:59 Intake & Output 10/09/19 10/10/19 10/11/19 06:59 06:59 06:59 Intake Total 2668 2522 Output Total 2270 1450 Balance 398 1072 Weight 80.1 kg 80.2 kg Results Laboratory Results: WBC 4.6 10^3/uL (4.0-10.5) 10/10/19 05:15 RBC 2.74 10^6/uL (3.72-5.28) L 10/10/19 05:15 Hgb 9.3 g/dL (12.0-15.5) L 10/10/19 05:15 Hct 26.1 % (36.0-47.0) L 10/10/19 05:15 MCV 95 fl (80-97) 10/10/19 05:15 MCH 33.9 pg (27.0-33.4) H 10/10/19 05:15 MCHC 35.6 g/dL (32.0-36.0) 10/10/19 05:15 RDW 13.7 % (11.5-14.0) 10/10/19 05:15 Plt Count 171 10^3/uL (150-450) 10/10/19 05:15 Lymph % (Auto) 20.4 % (13-45) 10/10/19 05:15 [place] % (Auto) 16.6 % (3-13) H 10/10/19 05:15 Eos % (Auto) 2.6 % (0-6) 10/10/19 05:15 Baso % (Auto) 0.5 % (0-2) 10/10/19 05:15 Absolute Neuts (auto) 2.7 10^3/uL (1.7-8.2) 10/10/19 05:15 Absolute Lymphs (auto) 0.9 10^3/uL (0.5-4.7) 10/10/19 05:15 Absolute Monos (auto) 0.8 10^3/uL (0.1-1.4) 10/10/19 05:15 Absolute Eos (auto) 0.1 10^3/uL (0.0-0.6) 10/10/19 05:15 Absolute Basos (auto) 0.0 10^3/uL (0.0-0.2) 10/10/19 05:15 Total Counted 100 10/07/19 04:07 Seg Neutrophils % 59.9 % (42-78) 10/10/19 05:15 Seg Neuts % (Manual) 39 % (42-78) L 10/07/19 04:07 Band Neutrophils % 9 % (3-5) H 10/07/19 04:07 Lymphocytes % (Manual) 38 % (13-45) 10/07/19 04:07 Monocytes % (Manual) 8 % (3-13) 10/07/19 04:07 Eosinophils % (Manual) 5 % (0-6) 10/07/19 04:07 Basophils % (Manual) 1 % (0-2) 10/07/19 04:07 Abs Neuts (Manual) 2.0 10^3/uL (1.7-8.2) 10/07/19 04:07 Abs Lymphs (Manual) 1.6 10^3/uL (0.5-4.7) 10/07/19 04:07 Abs Monocytes (Manual) 0.3 10^3/uL (0.1-1.4) 10/07/19 04:07 Absolute Eos (Manual) 0.2 10^3/uL (0.0-0.6) 10/07/19 04:07 Abs Basophils (Manual) 0.0 10^3/uL (0.0-0.2) 10/07/19 04:07 Platelet Comment DECREASED 10/07/19 04:07 Anisocytosis SLIGHT 10/07/19 04:07 Sodium 132.0 mmol/L (137-145) L 10/10/19 05:15 Potassium 3.4 mmol/L (3.6-5.0) L 10/10/19 05:15 Chloride 103 mmol/L (98-107) 10/10/19 05:15 Carbon Dioxide 23 mmol/L (22-30) 10/10/19 05:15 Anion Gap 6 (5-19) 10/10/19 05:15 BUN 3 mg/dL (7-20) L 10/10/19 05:15 Creatinine 0.43 mg/dL (0.52-1.25) L 10/10/19 05:15 Est GFR ( Amer) > 60 (>60) 10/10/19 05:15 Est GFR (MDRD) Non-Af > 60 (>60) 10/10/19 05:15 Glucose 92 mg/dL (75-110) 10/10/19 05:15 Calcium 8.4 mg/dL (8.4-10.2) 10/10/19 05:15 COVID-19 Source NASOPHARYNGEAL 10/01/19 08:58 COVID-19 (TABATHA) NOT DETECTED 10/01/19 08:58
[2019-10-10 08:47] VITALS: BP 146/82
--- NOTE | 2019-10-16 05:23 | Operative Report ---
Nonrecallable Operative Report DATE OF SURGERY: 10/05/19 PREOPERATIVE DIAGNOSIS: colostomy POSTOPERATIVE DIAGNOSIS: colostomy OPERATION: attempted colonoscopy and conversion to exploratory laparotomy with coloproctoscopy SURGEON: RASHAWN YBARRA MANAGER SQL: JOSE G VALENTINE ANESTHESIA: GA TISSUE REMOVED OR ALTERED: segment of decending colon COMPLICATIONS: colon perforation ESTIMATED BLOOD LOSS: 200 INTRAOPERATIVE FINDINGS: colonic diverticula PROCEDURE: Patient was brought to the operating awake alert stable condition placed on the operative table supine position and given local MAC anesthesia. She was then placed in a left lateral cubitus position for the evaluation of her rectal stump. After appropriate timeout site verification procedure commenced. The Olympus colonoscope was passed into the rectum and advanced approximately 20 cm evaluating the rectal stump there was no evidence of any polyps or mucosal abnormalities of her rectal stump. The scope was advanced for approximately 20 cm at which point we saw the staple line no obvious diverticulosis. She was then placed in a supine position. The abdomen was prepped and draped stoma visualized in the left lower quadrant stoma was digitalized and the fascia was palpated. The Olympus colonoscope was then passed into the stoma and advanced approximately 10 cm at which point we noted a very large diverticula. Scope was slowly and slowly advance at which point we noticed the skin scope had passed into the free peritoneum. The abdomen was somewhat distended with gas at this point and it appeared that the scope had passed into the peritoneum through a defect in the descending colon be cause of this the scope was removed. I was able to palpate the stoma again digitalized it and felt a perforation of the descending colon underneath the rectus fascia. At this point I made a decision to proceed with an exploratory laparotomy as it appeared that the scope had perforated the descending colon underneath the fascia. Patient was still awake and therefore I discussed this with her and she consented to exploratory laparotomy at this point probable reversal of her colostomy since she had already undergone a bowel prep. Therefore she was placed under general anesthesia. After anesthesia was induced the abdomen was prepped and draped. The lower midline incision that was previously utilized for her Infante's was reopened with a 10 blade dissection was carried down through subcutaneous tissue with Bovie cautery. The midline fascia was entered. Upon entering the midline fascia there was only a few adhesions of small bowel to the anterior abdominal wall which were raised easily taken down bluntly. Once we gained access to the abdominal cavity a large Arnulfo retractor was placed. The previous stoma was identified and it was mobilized from the anterior skin edge with Bovie cautery and blunt dissection was then palpated underneath the abdominal fascia from within and easily taken down with sharp dissection. It appeared that the patient had a large diverticula just proximal to the exit site on underneath the rectus muscle. And and that the scope had perforated that. We mobilized the descending colon along the white line of Toldt with sharp dissection up to the splenic flexure. This allowed us to deliver the descending colon to the wound. The perforation had occurred approximately 15 cm from the end of the colon. I was able to clear the mesentery with the LigaSure device and then amputated the 15 cm segment of colon that was previously utilized for the stoma. Pursestring suture was placed around the end of the descending colon using a 2-0 nylon. The descending colon was incised with the rectal sizers and easily admitted a 33 mm EEA stapler anvil. Stapler anvil was placed into the descending colon the pursestring suture was tied down. Attention was then turned to the pelvis there are some loose adhesions of the small bowel in the pelvis which were easily mobilized with blunt dissection to identify the rectal stump. The rectal stump was freed up from surrounding tissue with blunt dissection the right and left ureter were both visualized. I then went below as patient was now in lithotomy position and easily placed the rectal sizers through the rectum into the rectal stump. Once this was accomplished the descending colon easily came down to the rectal stump and therefore we placed the EEA stapler 33 mm into through the rectum opened the allowed the spike to perforate the proximal rectum and attached it to the anvil and the descending colon closed and fired creating a coloproctostomy. Once this was accomplished we then passed the rigid proctoscope in to the rectum and instilled air under some pressure with the anastomosis under water and there was no evidence of any leak of air bubbles. We then copiously irrigated the abdominal cavity suctioned dry. Placed a James-Dasilva drain in the pelvis brought out through a stab wound in the right lower quadrant. The midline fascia was then closed with a running double looped 0 Maxon suture. The skin was closed with standard skin clips. A sterile dressing was applied. Sponge and needle counts were correct x2. Estimated blood loss was 200 cc. JOSE Wong was present for the entire procedure for help with wound retraction wound closure. The patient was awakened in the operating transferred recovery in stable condition
== END 2019-10-10 09:45 | disposition home or self-care (01) | DRG 330 ==
LOC: OROUT 09:58 → 4N 15:05
PROVIDERS: ADMIT Surgery; ATTEND Surgery
PROC: 0DBM0ZZ Excision of Descending Colon, Open Approach (ICD-10-PCS; principal; 2019-10-05 12:00)
DX: Z43.3 Encounter for attention to colostomy (principal); K57.20 Diverticulitis of large intestine with perforation and abscess without bleeding; Z20.828 Contact with and (suspected) exposure to other viral communicable diseases
CPT/HCPCS: 00840; 36415; 45380; 80048; 85025; 87635; 88304; 94799; C1758; C9290; C9803; J0330; J0690; J1100; J1170; J1885; J2250; J2270; J2370; J2405; J2704; J3010; J3480; J3490; J7030; S0028